=== PATIENT | male | born 1960 | race Caucasian/White ===

== ENCOUNTER 2022-06-07 12:48 | Inpatient (IN) ==
--- NOTE | 2022-06-07 13:08 | Emergency Department Note ---
Abdominal Pain HPI General Chief Complaint: Abdominal Pain Stated Complaint: Abdominal pain Time Seen by Provider: 06/07/22 12:53 Source: patient Mode of arrival: ambulatory Limitations: no limitations History of Present Illness HPI Narrative: Rolando Cm is a 62-year-old male who presents emergency department with a about a week of central abdominal pain, inappetence, and constipation. He reports he and his significant other both had a "lower GI bug," but he did not improve. He reports constipation and abdominal pain. He states he has not eaten in 3 or 4 days. He reports he has been increasing his water intake, reporting approximately "three quarters of a gallon" ingested yesterday and about 1 pint of water today. He reports urination is painful, causing abdominal cramping, but he denies a history of black or bloody stools. He denies nausea and vomiting. He states he has never had a small bowel obstruction. He reports he still has his appendix. The patient reports he normally has a bowel movement daily, and that his last normal bowel movement was early last week. He states he has had liquid stools daily, very small quantities. He denies all other acute complaints at this time. Related Data Allergies Allergy/AdvReac Type Severity Reaction Status Date / Time bee venom protein (honey bee) Allergy Verified 06/07/22 16:51 Review of Systems ROS ROS Narrative: A comprehensive review of systems is obtained and found to be negative, except as per HPI. PFSH Narrative Patient History Narrative: Narrative: Medical/Surgical/Family History All Active Problems Sigmoid diverticulitis (Acute) Social History Smoking Status: Never smoker Exam Narrative Narrative: General: Alert, pleasant, conversant, NAD HEENT: EOMI, PERRL, equal facial movement Chest/respiratory: Symmetric chest wall expansion, CTAB, adequate tidal volume and respiratory effort, speaks in complete paragraphs without difficulty CV: RRR/no MRG, cap refill less than 2 seconds; palpable peripheral pulses Abdomen/GI: decreased bowel sounds, TTP at RLQ and suprapubic, no rebound or guarding Extremities/MSK: MAEW, significant lower extremity edema bilat reported to be baseline Skin: Normal warm and dry General Limitations: no limitations Course Consultations Consultation #1: Dr. Garzon, general surgery. After discussing the patient's case in detail, he agrees to come to the emergency department to see the patient. I had previously ordered Zosyn, however Dr. Garzon requests meropenem. This change is made. Time: 14:25 Vital Signs Vital signs: Vital Signs Temperature 97.6 F 06/07/22 12:48 Pulse Rate 100 H 06/07/22 12:48 Respiratory Rate 20 06/07/22 12:48 Blood Pressure 167/94 06/07/22 12:48 Pulse Oximetry (%) 96 06/07/22 12:48 Oxygen Delivery Method Room Air 06/07/22 12:48 Temperature 98.6 F 06/07/22 19:44 Pulse Rate 109 H 06/07/22 19:44 Respiratory Rate 18 06/07/22 19:44 Blood Pressure 161/90 06/07/22 19:44 Pulse Oximetry (%) 95 06/07/22 19:44 Oxygen Delivery Method Room Air 06/07/22 19:44 MDM MDM Narrative Medical decision making narrative: Rolando Cm is a 62-year-old male who presents emergency department compla ining of central abdominal pain for approximately 1 week. On exam, he he is tender to palpation without rebound or guarding on the right lower quadrant/suprapubic. The patient has had inappetence for 3 to 4 days. He has been drinking increased volumes of water. He denies black or bloody stools. White blood cell count is 18.1. Lactic acid is high and of reference range at 2.0. Glucose and fasting patient is elevated. Imaging exam is consistent with severe diverticulitis with diverticular abscess. Dr. Garzon of the surgery service is contacted to evaluate the patient; after discussing the patient's case in detail, he agrees to come in to see the patient. Following his evaluation of the patient, Dr. Garzon agrees to admit the patient to the surgery service. Urine not collected at the time of admission; no UA performed. Sepsis Sepsis Identified: No Lab Data Lab results reviewed: Yes I reviewed the patient's lab results. Lab results narrative: White count initially is 18.1 with a left shift. Lactic acid is high normal at 2.0. Elevated glucose. 06/07/22 13:10 06/07/22 13:10 Labs: Lab Results 06/07/22 06/07/22 06/07/22 Range/Units 13:08 13:10 13:10 WBC 18.1 H (4.5-11.0) K/mcL RBC 5.28 (4.63-6.08) M/mcL Hgb 18.2 H (13.7-17.5) g/dL Hct 52.0 H (40.1-51.0) % POC Hct 56.0 H (41-55) MCV 98.5 (80.0-100.0) fL MCH 34.5 H (26.0-34.0) pg MCHC 35.0 (31.0-36.0) g/dL RDW 11.8 (11.5-14.5) % Plt Count 343 (140-440) K/mcL MPV 9.6 (8.8-12.5) fL Immature Gran % (Auto) 0.6 H (0.0-0.5) % Neut % (Auto) 87.8 H (38.0-78.0) % Lymph % (Auto) 5.6 L (15.5-49.0) % Keith % (Auto) 5.6 (1.0-12.0) % Eos % (Auto) 0.1 (0.0-7.0) % Baso % (Auto) 0.3 (0.0-2.0) % Lymph # (Auto) 1.01 L (1.50-4.80) K/mcL Keith # (Auto) 1.01 H (0.10-0.90) K/mcL Eos # (Auto) 0.01 (0.00-0.70) K/mcL Baso # (Auto) 0.05 (0.00-0.30) K/mcL Immature Gran # 0.11 H (0.00-0.05) K/mcl Absolute Neutrophils 15.87 H (1.80-8.00) K/mcL POC VBG pH (7.32-7.42) POC VBG pCO2 at Temp (41-51) POC VBG pO2 (25-40) POC VBG HCO3 (24-28) POC VBG Total CO2 (25-29) POC Venous O2 Sat (40-70) POC VBG Base Excess (-2-2) VBG Lactic Acid (0.5-2) POC Sodium 136 (133-145) Sodium 135 (133-145) mmol/L POC Potassium 4.2 (3.3-5.1) Potassium 4.4 (3.3-5.1) mmol/L POC Chloride 98 (96-108) Chloride 92 L (96-108) mmol/L Carbon Dioxide 22 (22-30) mmol/L POC Total CO2 28.0 (22-30) Anion Gap 21.0 H (8.0-16.0) POC BUN 17 (6-20) BUN 13 (8-23) mg/dL Creatinine 0.8 (0.7-1.2) mg/dL POC Creatinine 0.8 (0.6-1.2) GFR Calculation 96 Glucose 100 (70-105) mg/dL POC Glucose 121 H (70-105) POC WB Ioniz Calcium 1.09 L (1.16-1.32) Ionized Calcium Ting 1.19 (1.16-1.32) mmol/L 06/07/22 Range/Units 13:25 WBC (4.5-11.0) K/mcL RBC (4.63-6.08) M/mcL Hgb (13.7-17.5) g/dL Hct (40.1-51.0) % POC Hct (41-55) MCV (80.0-100.0) fL MCH (26.0-34.0) pg MCHC (31.0-36.0) g/dL RDW (11.5-14.5) % Plt Count (140-440) K/mcL MPV (8.8-12.5) fL Immature Gran % (Auto) (0.0-0.5) % Neut % (Auto) (38.0-78.0) % Lymph % (Auto) (15.5-49.0) % Keith % (Auto) (1.0-12.0) % Eos % (Auto) (0.0-7.0) % Baso % (Auto) (0.0-2.0) % Lymph # (Auto) (1.50-4.80) K/mcL Keith # (Auto) (0.10-0.90) K/mcL Eos # (Auto) (0.00-0.70) K/mcL Baso # (Auto) (0.00-0.30) K/mcL Immature Gran # (0.00-0.05) K/mcl Absolute Neutrophils (1.80-8.00) K/mcL POC VBG pH 7.36 (7.32-7.42) POC VBG pCO2 at Temp 38.0 L (41-51) POC VBG pO2 29 (25-40) POC VBG HCO3 21.4 L (24-28) POC VBG Total CO2 23.0 L (25-29) POC Venous O2 Sat 52.0 (40-70) POC VBG Base Excess -4.0 L (-2-2) VBG Lactic Acid 2.0 (0.5-2) POC Sodium (133-145) Sodium (133-145) mmol/L POC Potassium (3.3-5.1) Potassium (3.3-5.1) mmol/L POC Chloride (96-108) Chloride (96-108) mmol/L Carbon Dioxide (22-30) mmol/L POC Total CO2 (22-30) Anion Gap (8.0-16.0) POC BUN (6-20) BUN (8-23) mg/dL Creatinine (0.7-1.2) mg/dL POC Creatinine (0.6-1.2) GFR Calculation Glucose (70-105) mg/dL POC Glucose (70-105) POC WB Ioniz Calcium (1.16-1.32) Ionized Calcium Ting (1.16-1.32) mmol/L Radiology Data Radiology results reviewed: Yes I reviewed the patient's radiology results. Radiology results narrative: Severe diverticulitis with diverticular abscess IMPRESSION: Severe diverticulitis in the mid/distal sigmoid colon with a 2.3 cm developing abscess in the adjacent perisigmoid fat. Adjacent small bowel loops demonstrates sympathetic inflammatory wall thickening. Small amount of free air in the perihepatic region is likely related to microperforation from the diverticulitis. Moderate diffuse wall thickening urinary bladder. Please correlate with urinalysis to exclude cystitis Discharge Plan Patient/Caregiver Discharge Instructions Pt seen by REPAIRER KILN CAR/PA only: Yes Clinical Impression: Sigmoid diverticulitis, Colonic diverticular abscess Patient Disposition: Xfer As Inpt ([facility]) Discharge Date/Time: 06/07/22 16:00
[2022-06-07 13:12] LABS: POC Calcium, Ionized 1.09 (1.16-1.32); POC Creatinine 0.8 (0.6-1.2); POC Potassium 4.2 (3.3-5.1)
[2022-06-07] MEDS: 0.9 % SODIUM CHLORIDE 1,000 ML IV SCH ×7 (13:25→23:04)
[2022-06-07] MEDS ORDERED: ONDANSETRON 4 MG/2 ML VIAL IV PRN ×2 (14:07→15:17)
[2022-06-07] MEDS ORDERED: fentaNYL 100 MCG/2 ML VIAL IV PRN (14:07)
--- NOTE | 2022-06-07 14:08 | Cat Scan Report ---
CLINICAL INFORMATION: Abdominal pain COMPARISON: None. TECHNIQUE: Following enteric contrast, 80 cc of Isovue-370 were injected intravenously, and 60 seconds later, 0.625 mm helical slices were obtained from the mid heart through the subtrochanteric regions. Following reconstruction, 2.5 mm sagittal, coronal and axial reformatted images were processed and reviewed at bone, lung and soft tissue windows. Five minutes later, 0.625 mm helical slices were obtained from the mid heart through the kidneys and viewed at soft tissue windows.The exam was performed using radiation dose optimization techniques including, but not limited to, automated exposure control, adjustment of the mA and/or kV according to patient size and use of iterative reconstruction technique. FINDINGS: The lung bases show subsegmental atelectasis in the posterior lower lobes. No effusions. The visualized heart is grossly normal. Small hiatal hernia noted. Abdominal images show mild fatty change within the liver. An 8 mm simple cyst in the central right hepatic lobe. No significant focal hepatic abnormality. The gallbladder and bile ducts are normal CBD is 5 mm. Both kidneys, spleen, pancreas and aorta, including aortic branches, are normal in size, configuration and attenuation without focal lesion. An 18 mm fat-containing benign adenoma seen in the right adrenal gland. The left adrenal gland is normal. There is no adenopathy. Pelvic images show moderate diffuse wall thickening of urinary bladder. The prostate and seminal vesicles are normal. Severe diverticulitis involving the mid and distal sigmoid colon features moderate wall thickening, inflamed diverticuli and moderate phlegmon in the perisigmoid fat. A 2.3 cm fluid collection in the central true pelvis, adjacent to the inflamed sigmoid colon, likely represents a developing abscess. Few loops of small bowel juxtaposed to this region show mild wall thickening which likely represents sympathetic inflammation. This extends to the terminal ileum. The remaining large bowel, inferior pericecal appendix, remaining small bowel and stomach are grossly normal. Small amount of free air is seen in the superior perihepatic region is likely due to microperforation from the diverticulitis. Small amount of free fluid seen in the deep true pelvis. Bone windows show no osseous normality. IMPRESSION: Severe diverticulitis in the mid/distal sigmoid colon with a 2.3 cm developing abscess in the adjacent perisigmoid fat. Adjacent small bowel loops demonstrates sympathetic inflammatory wall thickening. Small amount of free air in the perihepatic region is likely related to microperforation from the diverticulitis. Moderate diffuse wall thickening urinary bladder. Please correlate with urinalysis to exclude cystitis Interpreted and Authenticated by: Kev Cheng 06/07/22
[2022-06-07 14:09] LABS: Basophils # (Auto) 0.05 K/mcL (0.00-0.30); Basophils % (Auto) 0.3 % (0.0-2.0); Eosinophils # (Auto) 0.01 K/mcL (0.00-0.70); Eosinophils % (Auto) 0.1 % (0.0-7.0); Hemoglobin 18.2 g/dL (13.7-17.5); Lymphocytes # (Auto) 1.01 K/mcL (1.50-4.80); Lymphocytes % (Auto) 5.6 % (15.5-49.0); Mean Cell Volume 98.5 fL (80.0-100.0); Mean Platelet Volume 9.6 fL (8.8-12.5); Monocytes # (Auto) 1.01 K/mcL (0.10-0.90); Monocytes % (Auto) 5.6 % (1.0-12.0); Neutrophils % (Auto) 87.8 % (38.0-78.0); Platelet Count 343 K/mcL (140-440); RBC 5.28 M/mcL (4.63-6.08); Red Cell Distribution Width 11.8 % (11.5-14.5); WBC 18.1 K/mcL (4.5-11.0)
[2022-06-07] MEDS ORDERED: PIPERACILLIN SODIUM/TAZOBACTAM 4.5 GM in DEXTROSE 5% IN WATER 50 ML IV ONE (14:16)
[2022-06-07] MEDS ORDERED: MEROPENEM 0.5 GM in 0.9 % SODIUM CHLORIDE 50 ML IV SCH ×2 (14:30→15:15)
[2022-06-07 14:38] LABS: Blood Urea Nitrogen 13 mg/dL (8-23); Carbon Dioxide 22 mmol/L (22-30); Chloride 92 mmol/L (96-108); Glomerular Filtration Rate 96; Glucose 100 mg/dL (70-105)
[2022-06-07] MEDS ORDERED: fentaNYL 100 MCG/2 ML VIAL IV ONE (15:08)
--- NOTE | 2022-06-07 15:52 | General Surgery Consult Note ---
HPI Date of Consult Consult Date: 06/07/22 Primary Care Provider: PCP No Consult Narrative Patient Information: Note initiated : 06/07/22 at 3:33 pm Service Date, if different from initiated Date: [] Patient: Juan Jose Cm 62 y/o M admitted on for Abdominal pain. Chief Complaint: [] Juan Jose is seen in consultation today after a roughly 1 week history of increasingly severe Lower Abdominal Pain that has seemed localized to the Pelvic Midline. He was seen in the ER and a CT Scan was obtained confirming Severe Sigmoid Diverticulitis with a small roughly 2cm associated abscess. He has not had prior bouts of this and has never undergone Colonoscopy. He has not had any prior Abdominal Surgery. He feels his baseline level of health is good although he doesn't seek out regular medical care. He is not on any medications at home and denies any known drug allergies. He is not on any oral a nticoagulants and denies any known Cardiac or Pulmonary issues. He is accompanied by his . Chief complaint: Abdominal Pain Reason for consult: Acute Sigmoid Diverticulitis cc:: CC: Review of Systems All systems: reviewed and no additional remarkable complaints except as stated Constitutional Additional comments: no changes EENT Additional comments: no ENT changes Cardiovascular Additional comments: no chest pains or other known issues Respiratory Additional comments: no SOB or Cough is a non smoker Gastrointestinal Additional comments: see HPI Genitourinary Additional comments: no hematuria Integumentary Additional comments: no recent changes Neurological Additional comments: no changes Hematologic/Lymphatic Additional comments: denies adenopathy or other issue PFSH PFSH All Active Problems (Updated 06/07/22 @ 15:46 by Todd Garzon MD) Sigmoid diverticulitis (Acute) Social History smoking status: Never smoker MEDS/ALLERGIES Home Medications and Allergies Allergies Allergy/AdvReac Type Severity Reaction Status Date / Time No Known Drug Allergies Allergy Verified 06/07/22 12:50 Physical Examination Vital Signs Vital signs: Temp Pulse Resp BP Pulse Ox O2 Del Method 97.6 F 113 H 20 147/83 92 Room Air 06/07/22 12:48 06/07/22 15:01 06/07/22 12:48 06/07/22 15:01 06/07/22 15:01 02/18/23 12:48 General physical appearance General physical exam: other (looks well, non toxic ) Eyes Eye exam: normal ocular movement; negative icteric ENT ENT exam: other (normal appearance ) Head Head exam IM: Present atraumatic, normal inspection and normocephalic Neck Neck exam: trachea midline; negative no lymphadenopathy Cardiovascular Cardiovascular exam IM: Present normal rate and rhythm and RRR Respiratory Respiratory exam: other (normal effort without distress ) Abdomen Abdomen: Present soft (soft and non distended, tenderness to exam focaly localized to the lower abdomen without guarding or rebound ) Integumentary Integumentary: Present other (normal appearing intact skin ) Psychiatric Psychiatric: Present oriented to time, oriented to person and oriented to place Results Labs 06/07/22 13:10 06/07/22 13:10 Labs: Abnormal lab results 06/07/22 06/07/22 06/07/22 Range/Units 13:08 13:10 13:10 WBC 18.1 H (4.5-11.0) K/mcL Hgb 18.2 H (13.7-17.5) g/dL Hct 52.0 H (40.1-51.0) % POC Hct 56.0 H (41-55) MCH 34.5 H (26.0-34.0) pg Immature Gran % (Auto) 0.6 H (0.0-0.5) % Neut % (Auto) 87.8 H (38.0-78.0) % Lymph % (Auto) 5.6 L (15.5-49.0) % Lymph # (Auto) 1.01 L (1.50-4.80) K/mcL Cla[place]orne # (Auto) 1.01 H (0.10-0.90) K/mcL Immature Gran # 0.11 H (0.00-0.05) K/mcl Absolute Neutrophils 15.87 H (1.80-8.00) K/mcL POC VBG pCO2 at Temp (41-51) POC VBG HCO3 (24-28) POC VBG Total CO2 (25-29) POC VBG Base Excess (-2-2) Chloride 92 L (96-108) mmol/L Anion Gap 21.0 H (8.0-16.0) POC Glucose 121 H (70-105) POC WB Ioniz Calcium 1.09 L (1.16-1.32) 02/18/23 Range/Units 13:25 WBC (4.5-11.0) K/mcL Hgb (13.7-17.5) g/dL Hct (40.1-51.0) % POC Hct (41-55) MCH (26.0-34.0) pg Immature Gran % (Auto) (0.0-0.5) % Neut % (Auto) (38.0-78.0) % Lymph % (Auto) (15.5-49.0) % Lymph # (Auto) (1.50-4.80) K/mcL [place]orne # (Auto) (0.10-0.90) K/mcL Immature Gran # (0.00-0.05) K/mcl Absolute Neutrophils (1.80-8.00) K/mcL POC VBG pCO2 at Temp 38.0 L (41-51) POC VBG HCO3 21.4 L (24-28) POC VBG Total CO2 23.0 L (25-29) POC VBG Base Excess -4.0 L (-2-2) Chloride (96-108) mmol/L Anion Gap (8.0-16.0) POC Glucose (70-105) POC WB Ioniz Calcium (1.16-1.32) Diabetes panel 06/07/22 Range/Units 13:10 Sodium 135 (133-145) mmol/L Potassium 4.4 (3.3-5.1) mmol/L Chloride 92 L (96-108) mmol/L Carbon Dioxide 22 (22-30) mmol/L BUN 13 (8-23) mg/dL Creatinine 0.8 (0.7-1.2) mg/dL Glucose 100 (70-105) mg/dL Calcium panel 06/07/22 Range/Units 13:10 Ionized Calcium Ting 1.19 (1.16-1.32) mmol/L Pituitary panel 06/07/22 Range/Units 13:10 Sodium 135 (133-145) mmol/L Potassium 4.4 (3.3-5.1) mmol/L Chloride 92 L (96-108) mmol/L Carbon Dioxide 22 (22-30) mmol/L BUN 13 (8-23) mg/dL Creatinine 0.8 (0.7-1.2) mg/dL Glucose 100 (70-105) mg/dL Adrenal panel 06/07/22 Range/Units 13:10 Sodium 135 (133-145) mmol/L Potassium 4.4 (3.3-5.1) mmol/L Chloride 92 L (96-108) mmol/L Carbon Dioxide 22 (22-30) mmol/L BUN 13 (8-23) mg/dL Creatinine 0.8 (0.7-1.2) mg/dL Glucose 100 (70-105) mg/dL All other labs normal. A/P Assessment and plan (1) Sigmoid diverticulitis: Assessment and plan: Acute Sigmoid Diverticulitis with associated phlegmon and abscess The currently seen abscess is not large enough for external percutaneous drainage and so transfer to an IR capable facility is probably not necessary at this time but this could change Issues are reviewed and discussed extensively with he and his and they're aware that emergent exploration at this time would resort in Stomal Diversion. With only localized tenderness now and no over peritonitis, an attempt at conservative non operative mgmt with IV ABs seems reasonable but certainly if he doesn't show improvement over the next 24-48 hours then operative intervention might be needed Risks, benefits, potential complications and alternative treatment options to our planned approach are reviewed and discussed at length as well and they both have a good understanding of this. We will go ahead with admission and my contact info is provided Status: Acute Time Spent With Patient Time: Total time spent is greater than 50% in coordination of care (as documented) at patient's floor/unit and/or counseling patient:
[2022-06-07] MEDS: DEXTROSE 5%-LR 1,000 ML IV SCH ×2 (16:59→21:59)
[2022-06-07] MEDS: HYDROmorphone 0.5 MG/0.5 ML SYRINGE IV PRN ×2 (17:26→22:05)
[2022-06-07] MEDS ORDERED: PANTOPRAZOLE 40 MG TABLET PO ONE (17:52)
[2022-06-07] MEDS: MEROPENEM 0.5 GM in 0.9 % SODIUM CHLORIDE 50 ML IV SCH (19:18)
[2022-06-07] MEDS: MAG HYDROX/AL HYDROX/SIMETH 30 ML ORAL.SUSP PO PRN (19:18)
[2022-06-08] MEDS: MAG HYDROX/AL HYDROX/SIMETH 30 ML ORAL.SUSP PO PRN ×2 (00:08→15:54)
[2022-06-08] MEDS: MEROPENEM 0.5 GM in 0.9 % SODIUM CHLORIDE 50 ML IV SCH ×5 (00:08→23:54)
[2022-06-08] MEDS: 0.9 % SODIUM CHLORIDE 1,000 ML IV SCH ×9 (00:11→14:55)
[2022-06-08] MEDS: HYDROmorphone 0.5 MG/0.5 ML SYRINGE IV PRN ×5 (03:06→22:51)
[2022-06-08] MEDS: DEXTROSE 5%-LR 1,000 ML IV SCH ×3 (03:07→14:54)
[2022-06-08 06:06] LABS: Hematocrit 44.3 % (40.1-51.0); Hemoglobin 15.3 g/dL (13.7-17.5); Mean Cell Volume 97.8 fL (80.0-100.0); Mean Corpuscular HGB Conc 34.5 g/dL (31.0-36.0); Mean Platelet Volume 9.2 fL (8.8-12.5); Platelet Count 282 K/mcL (140-440); RBC 4.53 M/mcL (4.63-6.08); Red Cell Distribution Width 11.8 % (11.5-14.5); WBC 16.1 K/mcL (4.5-11.0)
[2022-06-08 06:29] LABS: Blood Urea Nitrogen 12 mg/dL (8-23); Calcium 8.8 mg/dL (8.6-10.4); Carbon Dioxide 25 mmol/L (22-30); Chloride 100 mmol/L (96-108); Glomerular Filtration Rate 108; Glucose 178 mg/dL (70-105)
[2022-06-08 09:50] LABS: Appearance,Urine HAZY (Clear); Bilirubin,Urine Negative (Negative); Color,Urine AMBER; Culture Indicated,Urine No; Glucose,Urine (UA) Negative (Negative); Ketones,Urine 20 mg/dL (Negative); Leukocyte Esterase,Urine Negative /uL (Negative); Mucus,Urine MANY /hpf; Nitrate,Urine Negative (Negative); Protein,Urine 100 mg/dL (Negative); Specific Gravity,Urine 1.038 (1.000-1.035); Urine Blood 0.03 mg/dL (Negative); Urine RBC 4 /hpf (0-3); Urine Squamous Epithelial Cell 0 /hpf (0-4); Urine WBC 1 /hpf (0-4); Urobilinogen,Urine Negative
--- NOTE | 2022-06-08 12:18 | General Surgery Progress Note ---
SUBJECTIVE Subjective Patient information: Note initiated : 06/08/22 at 12:13 pm Service Date, if different from initiated Date: [] Patient: Juan Jose Cm 62 y/o M admitted on 06/07/22 for Abdominal pain. Chief Complaint: [] Feels markedly improved today, passing as, far less abdominal pain Constitutional Vitals: Vital Signs Temp Pulse Resp BP Pulse Ox O2 Del Method 99.5 F H 85 16 150/72 99 Room Air 06/08/22 11:54 06/08/22 07:18 06/08/22 11:54 06/08/22 11:54 06/08/22 11:54 06/08/22 11:54 Period Temp Pulse Resp BP Sys/Yeh Pulse Ox O2 Del Method O2 Flow Rate Last 24 Hr 97.6 F-99.5 F 85-125 16-20 137-175/72-108 91-99 Room Air-Room Air Intake and Output 06/08/22 06/08/22 06/08/22 03:59 11:59 19:59 Intake Total 2400 938 Output Total 400 Balance 1999 938 Weight 202 lb 1.6 oz Intake & Output: Intake & Output 06/08/22 06/08/22 06/08/22 03:59 11:59 19:59 Intake Total 2400 938 Output Total 400 Balance 1999 938 Weight 202 lb 1.6 oz Intake: IV 2100 938 Sodium Chloride 0.9% 1,000 ml @ 1000 500 mls/hr IV .Q2H KANDY Rx#: [id number] Dextrose 5%-Lactated Ringers 1, 1000 888 000 ml @ 150 mls/hr IV .Q6H40M KANDY Rx#:[id number] Merrem 0.5 gm In Sodium 100 50 Chloride 0.9% 50 ml @ 100 mls/ hr IV Q6H KANDY Rx#:[id number] Oral 300 Output: Void Amount 400 Other: Urine Appearance Clear Urine Color Dark Michelle Dark Michelle Urine Odor Normal Exam: Looks non toxic, NAD, conversant Respiratory Additional comments: normal effort without distress Cardiovascular Cardiovascular exam: Present RRR GI/Abdominal Additional comments: soft and non distended, moderate Lower Abdominal TTP, no peritoneal findings Extremities Exam Additional comments: well perfused A/P Assessment and plan (1) Sigmoid diverticulitis: Assessment and plan: Acute Sigmoid Diverticulitis with Abscess Clinically improved on current mgmt Continue IVF, IV ABs and NPO Re check labs in AM Status: Acute Time Spent With Patient Time: Total time spent is greater than 50% in coordination of care (as documented) at patient's floor/unit and/or counseling patient:
[2022-06-08] MEDS: DEXTROSE 5%-1/2NS W/20MEQ KCL 1,000 ML IV SCH ×2 (15:50→23:54)
[2022-06-08] MEDS: PANTOPRAZOLE 40 MG TABLET PO SCH (20:28)
[2022-06-09] MEDS: HYDROmorphone 0.5 MG/0.5 ML SYRINGE IV PRN ×8 (00:25→23:54)
[2022-06-09] MEDS: MEROPENEM 0.5 GM in 0.9 % SODIUM CHLORIDE 50 ML IV SCH ×4 (05:50→23:54)
[2022-06-09 07:21] LABS: Hematocrit 43.7 % (40.1-51.0); Hemoglobin 14.7 g/dL (13.7-17.5); Mean Cell Volume 99.8 fL (80.0-100.0); Mean Corpuscular HGB Conc 33.6 g/dL (31.0-36.0); Mean Platelet Volume 9.7 fL (8.8-12.5); Platelet Count 279 K/mcL (140-440); RBC 4.38 M/mcL (4.63-6.08); WBC 15.2 K/mcL (4.5-11.0)
[2022-06-09] MEDS: DEXTROSE 5%-1/2NS W/20MEQ KCL 1,000 ML IV SCH ×3 (08:07→23:57)
[2022-06-09 11:57] LABS: Blood Urea Nitrogen 9 mg/dL (8-23); Calcium 8.7 mg/dL (8.6-10.4); Carbon Dioxide 25 mmol/L (22-30); Chloride 100 mmol/L (96-108); Glomerular Filtration Rate 116; Glucose 146 mg/dL (70-105)
--- NOTE | 2022-06-09 14:32 | General Surgery Progress Note ---
SUBJECTIVE Subjective Patient information: Note initiated : 06/09/22 at 2:25 pm Service Date, if different from initiated Date: [] Patient: Juan Jose Cm 62 y/o M admitted on 06/07/22 for Abdominal pain. Chief Complaint: [] Continues to feel that he is slowly improving, passing gas, doing much better overall Constitutional Vitals: Vital Signs Temp Pulse Resp BP Pulse Ox O2 Del Method 98.8 F 71 20 151/98 94 Room Air 06/09/22 11:22 06/09/22 11:22 06/09/22 11:22 06/09/22 11:22 06/09/22 11:22 06/09/22 11:22 Period Temp Pulse Resp BP Sys/Yeh Pulse Ox O2 Del Method O2 Flow Rate Last 24 Hr 98.3 F-99.2 F 71-86 18-20 132-158/79-98 92-95 Room Air-Room Air Intake and Output 06/09/22 06/09/22 06/09/22 03:59 11:59 19:59 Intake Total 1450 1050 50 Output Total 350 400 Balance 1100 650 50 Weight 208 lb 1.6 oz Patient Weight 06/10/22 03:59 Weight 208 lb 1.6 oz Intake & Output: Intake & Output 06/09/22 06/09/22 06/09/22 03:59 11:59 19:59 Intake Total 1450 1050 50 Output Total 350 400 Balance 1100 650 50 Weight 208 lb 1.6 oz Intake: IV 1050 1050 50 Dextrose 5%-1/2Ns W/20Meq KCl 1 1000 1000 ,000 ml @ 125 mls/hr IV .Q8H KANDY Rx#:[id number] Merrem 0.5 gm In Sodium 50 50 50 Chloride 0.9% 50 ml @ 100 mls/ hr IV Q6H KANDY Rx#:[id number] Oral 400 Output: Void Amount 350 400 Other: Urine Appearance Clear Urine Color Yellow Dark Michelle Urine Odor Normal Normal Exam: looks well, no distress, non toxic, pleasantly conversant Respiratory Respiratory exam: Present normal respiratory exam Cardiovascular Cardiovascular exam: Present RRR GI/Abdominal Additional comments: soft and non distended, mild lower abdominal tenderness continues but no peritoneal findings Extremities Exam Additional comments: well perfused A/P Assessment and plan (1) Sigmoid diverticulitis: Assessment and plan: HD #3 Acute Sigmoid Diverticulitis with associated Abscess Continues to slowly improve on IV ABs, bowel rest and IVF Re check labs in AM Will consider starting clears tomorrow Increase activity as tolerated Status: Acute Time Spent With Patient Time: Total time spent is greater than 50% in coordination of care (as documented) at patient's floor/unit and/or counseling patient:
[2022-06-09] MEDS: PANTOPRAZOLE 40 MG TABLET PO SCH (21:53)
[2022-06-10] MEDS: HYDROmorphone 0.5 MG/0.5 ML SYRINGE IV PRN ×7 (03:51→19:09)
[2022-06-10] MEDS: MEROPENEM 0.5 GM in 0.9 % SODIUM CHLORIDE 50 ML IV SCH ×3 (05:52→17:59)
[2022-06-10 07:22] LABS: Hematocrit 42.5 % (40.1-51.0); Hemoglobin 14.3 g/dL (13.7-17.5); Mean Cell Volume 100.5 fL (80.0-100.0); Mean Corpuscular HGB Conc 33.6 g/dL (31.0-36.0); Mean Platelet Volume 9.8 fL (8.8-12.5); Platelet Count 282 K/mcL (140-440); RBC 4.23 M/mcL (4.63-6.08); Red Cell Distribution Width 12.3 % (11.5-14.5); WBC 15.2 K/mcL (4.5-11.0)
[2022-06-10 07:38] LABS: Blood Urea Nitrogen 8 mg/dL (8-23); Calcium 8.2 mg/dL (8.6-10.4); Carbon Dioxide 28 mmol/L (22-30); Chloride 99 mmol/L (96-108); Glomerular Filtration Rate 116; Glucose 130 mg/dL (70-105)
[2022-06-10] MEDS: DEXTROSE 5%-1/2NS W/20MEQ KCL 1,000 ML IV SCH (13:59)
--- NOTE | 2022-06-10 16:53 | General Surgery Progress Note ---
SUBJECTIVE Subjective Patient information: Note initiated : 06/10/22 at 1:15pm Service Date, if different from initiated Date: [] Patient: Juan Jose Cm 62 y/o M admitted on 06/07/22 for Abdominal pain. Chief Complaint: [] Continues to feel improved, passing some gas, no nausea or vomiting and abdominal pain continues to be much better. Constitutional Vitals: Vital Signs Temp Pulse Resp BP Pulse Ox O2 Del Method 99.1 F H 98 H 16 145/86 93 Room Air 06/10/22 15:48 06/10/22 15:48 06/10/22 15:48 06/10/22 15:48 06/10/22 15:48 06/10/22 15:48 Period Temp Pulse Resp BP Sys/Yeh Pulse Ox O2 Del Method O2 Flow Rate Last 24 Hr 97.3 F-99.1 F 81-127 16-24 130-164/83-100 92-100 Room Air-Room Air Intake and Output 06/10/22 06/10/22 06/10/22 03:59 11:59 19:59 Intake Total 1450 1050 0 Output Total 450 400 Balance 1450 600 -400 Weight 215 lb 11.2 oz Intake & Output: Intake & Output 06/10/22 06/10/22 06/10/22 03:59 11:59 19:59 Intake Total 1450 1050 0 Output Total 450 400 Balance 1450 600 -400 Weight 215 lb 11.2 oz Intake: IV 1050 1050 Dextrose 5%-1/2Ns W/20Meq KCl 1 1000 1000 ,000 ml @ 100 mls/hr IV .Q10H KANDY Rx#:[id number] Merrem 0.5 gm In Sodium 50 50 Chloride 0.9% 50 ml @ 100 mls/ hr IV Q6H KANDY Rx#:[id number] Oral 400 0 Output: Urine Catheter Amount 200 Void Amount 450 200 Other: Urine Appearance Clear Urine Color Dark Michelle Urine Odor Normal General appearance: no acute distress Exam: pleasantly conversant, looks non toxic, NAD Respiratory Respiratory exam: Present normal respiratory exam Additional comments: normal effort without distress Cardiovascular Cardiovascular exam: Present RRR GI/Abdominal Additional comments: soft and essentially non tender, no peritoneal findings, minimal distension Extremities Exam Additional comments: well perfused A/P Assessment and plan (1) Sigmoid diverticulitis: Assessment and plan: Sigmoid Diverticulitis with associated Abscess Continues to appear clinically improved Re check Abdominal films in AM and consider repeat CT in the next 24-48 hours to re evaluate suitability of any potential abscess for drainage (which would likely require hospital transfer) Continue NPO for now Status: Acute Time Spent With Patient Time: Total time spent is greater than 50% in coordination of care (as documented) at patient's floor/unit and/or counseling patient:
[2022-06-10] MEDS: PANTOPRAZOLE 40 MG TABLET PO SCH (21:17)
[2022-06-11] MEDS: HYDROmorphone 0.5 MG/0.5 ML SYRINGE IV PRN ×6 (00:05→22:46)
[2022-06-11] MEDS: MEROPENEM 0.5 GM in 0.9 % SODIUM CHLORIDE 50 ML IV SCH ×5 (00:05→23:19)
[2022-06-11] MEDS: DEXTROSE 5%-1/2NS W/20MEQ KCL 1,000 ML IV SCH ×5 (01:16→21:46)
[2022-06-11 07:40] LABS: Hematocrit 41.2 % (40.1-51.0); Hemoglobin 14.1 g/dL (13.7-17.5); Mean Cell Volume 99.5 fL (80.0-100.0); Mean Corpuscular HGB Conc 34.2 g/dL (31.0-36.0); Mean Platelet Volume 9.5 fL (8.8-12.5); Platelet Count 300 K/mcL (140-440); RBC 4.14 M/mcL (4.63-6.08); Red Cell Distribution Width 12.5 % (11.5-14.5); WBC 14.4 K/mcL (4.5-11.0)
[2022-06-11 07:51] LABS: Blood Urea Nitrogen 8 mg/dL (8-23); Calcium 8.3 mg/dL (8.6-10.4); Carbon Dioxide 27 mmol/L (22-30); Chloride 98 mmol/L (96-108); Glomerular Filtration Rate 127; Glucose 126 mg/dL (70-105)
--- NOTE | 2022-06-11 08:35 | XRay Report ---
HISTORY: Acute sigmoid diverticulitis FINDINGS: There is a large amount of air throughout the small intestine. Some loops of small bowel are abnormally dilated measuring up to 5.6 cm. There is also air within normal caliber large intestine. Air-fluid levels are present in both large and small bowel. No free intra-abdominal air is present. There is no apparent soft tissue mass. No abnormal calcification is seen. 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 IMPRESSION: Nonspecific bowel pattern. Some features suggest an early or incomplete small bowel obstruction but other features suggest an ileus. Interpreted and Authenticated by: Ted Estrella 06/11/22
--- NOTE | 2022-06-11 12:29 | General Surgery Progress Note ---
SUBJECTIVE Subjective Patient information: Note initiated : 06/11/22 at 12:24 pm Service Date, if different from initiated Date: [] Patient: Juan Jose Cm 62 y/o M admitted on 06/07/22 for Abdominal pain. Chief Complaint: [] Continues to feel much better, passing far larger amounts of gas this am, no nausea or vomiting Constitutional Vitals: Vital Signs Temp Pulse Resp BP Pulse Ox O2 Del Method 98.5 F 104 H 18 156/77 95 Room Air 06/11/22 12:00 06/11/22 12:00 06/11/22 12:00 06/11/22 12:00 06/11/22 12:00 06/11/22 12:00 Period Temp Pulse Resp BP Sys/Yeh Pulse Ox O2 Del Method O2 Flow Rate Last 24 Hr 98.0 F-99.1 F 86-106 16-18 130-176/77-91 91-96 Room Air-Room Air Intake and Output 06/11/22 06/11/22 06/11/22 03:59 11:59 19:59 Intake Total 1050 1350 50 Output Total 425 Balance 1050 925 50 Intake & Output: Intake & Output 06/11/22 06/11/22 06/11/22 03:59 11:59 19:59 Intake Total 1050 1350 50 Output Total 425 Balance 1050 925 50 Intake: IV 1050 1050 50 Dextrose 5%-1/2Ns W/20Meq KCl 1 1000 1000 ,000 ml @ 100 mls/hr IV .Q10H [facility] Rx#:[id number] Merrem 0.5 gm In Sodium 50 50 50 Chloride 0.9% 50 ml @ 100 mls/ hr IV Q6H [facility] Rx#:[id number] Oral 300 Output: Void Amount 425 Other: Urine Appearance Clear Clear Urine Color Dark Michelle Dark Michelle Urine Odor Normal Normal Exam: Looks well, non toxic, NAD Respiratory Additional comments: normal effort without distress Cardiovascular Cardiovascular exam: Present RRR GI/Abdominal Additional comments: non tender, soft, distension remains, no peritoneal findings Extremities Exam Additional comments: well perfused A/P Assessment and plan (1) Sigmoid diverticulitis: Assessment and plan: HD #5 Sigmoid Diverticulitis with Associated Abscess Plain films this am support ileus vs partial SBO - NGT decompression is discussed but he is declining at this time as he is passing far larger amounts gas and his belly continues to feel better Issues are reviewed and discussed at length including potential need for PICC line placement, TPN support, repeat CT to assess abscess progression, possible need for Perc drainage which would mandate transfer, and other issues as well. Increase activity, minimize narcotic use, re check labs and plain films in am and re evaluate need for PICC line, TPN and updated CT Status: Acute Time Spent With Patient Time: Total time spent is greater than 50% in coordination of care (as documented) at patient's floor/unit and/or counseling patient:
[2022-06-11] MEDS: PANTOPRAZOLE 40 MG TABLET PO SCH (20:40)
[2022-06-12] MEDS: HYDROmorphone 0.5 MG/0.5 ML SYRINGE IV PRN ×7 (02:57→23:38)
[2022-06-12] MEDS: MEROPENEM 0.5 GM in 0.9 % SODIUM CHLORIDE 50 ML IV SCH ×4 (05:18→23:37)
[2022-06-12 07:01] LABS: Hematocrit 42.2 % (40.1-51.0); Hemoglobin 14.3 g/dL (13.7-17.5); Mean Cell Volume 98.1 fL (80.0-100.0); Mean Corpuscular HGB Conc 33.9 g/dL (31.0-36.0); Mean Platelet Volume 9.7 fL (8.8-12.5); Platelet Count 350 K/mcL (140-440); Red Cell Distribution Width 12.7 % (11.5-14.5); WBC 18.3 K/mcL (4.5-11.0)
[2022-06-12] MEDS: DEXTROSE 5%-1/2NS W/20MEQ KCL 1,000 ML IV SCH (07:12)
[2022-06-12 07:38] LABS: Blood Urea Nitrogen 6 mg/dL (8-23); Calcium 8.1 mg/dL (8.6-10.4); Carbon Dioxide 26 mmol/L (22-30); Chloride 96 mmol/L (96-108); Glomerular Filtration Rate 116; Glucose 130 mg/dL (70-105)
--- NOTE | 2022-06-12 09:13 | XRay Report ---
HISTORY: Abdominal pain, ileus FINDINGS: Supine and erect views were obtained. There is a moderate amount of air in both large and small intestine. There are air-fluid levels in both. Some of the small bowel loops are dilated measuring up to 4.6 cm. The caliber of the small bowel has diminished but there is more air in the large bowel today than there was yesterday. No free intra-abdominal air is present. There is no apparent soft tissue mass. Normal quantity of air is seen in the rectum and sigmoid colon. There are bands of atelectasis medially in both lung bases. These have remained stable. IMPRESSION: Ileus Interpreted and Authenticated by: Ted Estrella 06/12/22
--- NOTE | 2022-06-12 09:41 | General Surgery Progress Note ---
SUBJECTIVE Subjective Patient information: Note initiated : 06/12/22 at 9:35 am Service Date, if different from initiated Date: [] Patient: Juan Jose Cm 62 y/o M admitted on 06/07/22 for Abdominal pain. Chief Complaint: [] Not feeling as well this am with some increased pain and low grade temps overnight, passing gas and has had several large stools Plain films look improved this am Constitutional Vitals: Vital Signs Temp Pulse Resp BP Pulse Ox O2 Del Method 99.0 F 98 H 20 144/88 93 Room Air 06/12/22 03:25 06/12/22 03:25 06/12/22 03:25 06/12/22 03:25 06/12/22 03:25 06/12/22 03:25 Period Temp Pulse Resp BP Sys/Yeh Pulse Ox O2 Del Method O2 Flow Rate Last 24 Hr 98.5 F-100.4 F 89-104 18-20 140-156/77-88 93-95 Room Air-Room Air Intake and Output 06/11/22 06/12/22 06/12/22 19:59 03:59 11:59 Intake Total 140 1140 1050 Output Total 500 350 Balance -924 704 1301 Weight 212 lb 4.8 oz Intake & Output: Intake & Output 06/11/22 06/12/22 06/12/22 19:59 03:59 11:59 Intake Total 140 1140 1050 Output Total 500 350 Balance -661 781 3503 Weight 212 lb 4.8 oz Intake: IV 100 1050 1050 Dextrose 5%-1/2Ns W/20Meq KCl 1 1000 1000 ,000 ml @ 125 mls/hr IV .Q8H [facility] Rx#:[id number] Merrem 0.5 gm In Sodium 100 50 50 Chloride 0.9% 50 ml @ 100 mls/ hr IV Q6H [facility] Rx#:[id number] Oral 40 90 Output: Urine Catheter Amount 150 Void Amount 500 200 Other: Urine Appearance Clear Urine Color Tea Colored Urine Odor Normal Stool Size Small Stool Color Brown Stool Consistency Soft # Voids 1 Exam: Looks nontoxic, conversant, NAD Respiratory Respiratory exam: Present normal respiratory exam Additional comments: normal effort without distress GI/Abdominal Additional comments: soft, less distension, mild tenderness centered in lower abdomen Extremities Exam Additional comments: well perfused A/P Assessment and plan (1) Sigmoid diverticulitis: Assessment and plan: Sigmoid Diverticulitis with associated Abscess No longer seems to be improving with conservative mgmt with increasing temps and WBC Re check CT FABIENNE this am to re eval abscess and possible need for Perc Drainage or Operative Exploration If indications for Perc Drainage will likely need transfer to facility with IR capability Status: Acute Time Spent With Patient Time: Total time spent is greater than 50% in coordination of care (as documented) at patient's floor/unit and/or counseling patient:
[2022-06-12] MEDS: DEXTROSE 5%-NS W/20MEQ KCL 1,000 ML IV SCH ×2 (10:33→17:57)
[2022-06-12] MEDS ORDERED: IOPAMIDOL 100 ML BOTTLE IV ONE (13:41)
[2022-06-12] MEDS ORDERED: VANCOMYCIN PER PHARMACY IV SCH (14:24)
--- NOTE | 2022-06-12 14:25 | Cat Scan Report ---
History: Acute diverticulitis, follow-up pelvic abscess TECHNIQUE: Following injection of intravenous nonionic contrast the patient was imaged during the portal venous phase from the diaphragm through the symphysis pubis. Delayed excretory phase images of the upper abdomen were obtained. Sagittal and coronal reformats were created. The radiation exposure was limited using dose reduction technology. FINDINGS: Small layering right-sided pleural effusion is present. There is moderate atelectasis in the posterior basal segment of the left lower lobe and milder left lower lobe atelectasis. These are new findings since 06/07/22. The liver is normal in size. The parenchyma has developed a mild mottled pattern. This is a new finding since 06/07/22. The gallbladder contains some sludge or excreted contrast from the prior CT. There are no calcified stones and the wall is not thickened or inflamed. Spleen is normal in size and homogeneous. The pancreas is normal with no mass or inflammation. The adrenals are normal and symmetric. Kidneys are normal in size shape and contour and there is no kidney stone or hydronephrosis. There is perinephric stranding around both kidneys which has developed since the prior exam. Moderate amount of calcified plaque is present along the wall of a normal caliber abdominal aorta and iliac arteries. Patient has moderately severe acute sigmoid diverticulitis. The wall is thickened and inflamed. This is not causing bowel obstruction. Posterior to the bladder and anterior to the sigmoid there is an abscess collection measures 5.2 x 6.9 cm. This was seen on the prior CT done and at that time it measured 2.3 cm. There is a tract extending superiorly and laterally from this abscess into a second abscess located anteriorly in the right upper pelvis which measures 3.0 x 4.5 cm. It contains a bubble of air. The small intestine located anterior to these two abscesses and the tract is very inflamed and dilated. It Measures 3.9 cm. Wall is severely edematous. There is another abscess collection with fluid and air located more posteriorly in the right upper pelvis which measures 4.2 x 4.5 cm. There are also abscess pockets around the liver. Along the inferior border of segment six there is a 2.5 x 3.5 cm abscess. Lateral to segment six and extending inferiorly towards the hepatic flexure there is a 2.5 x 3.5 cm abscess. There is another pocket of fluid along the anterior superior border of the dome of the liver which measures 1.0 x 4.7 cm. These are all new. There is some fluid or inflammation in the left paracolic space. It does not have well-defined borders. No free intraperitoneal air is present. The urinary bladder is normally distended and there is no gas within the lumen. IMPRESSION: Severe sigmoid diverticulitis which has become worse since 06/07/22. Multiloculated abscess collections throughout the abdomen and pelvis, most of them are on the right side. The majority of these cannot be safely drained percutaneously due to overlying bowel and bladder. New onset heterogeneous air in the liver parenchyma in the right lobe. This may be seen with sepsis New onset bibasilar atelectasis and right-sided pleural effusion Dr. Garzon was called with report Interpreted and Authenticated by: Ted Estrella 06/12/22
[2022-06-12] MEDS: FLUCONAZOLE 200 MG/100 ML BAG IV SCH (14:53)
[2022-06-12] MEDS ORDERED: VANCOMYCIN 1,500 MG in 0.9 % SODIUM CHLORIDE 500 ML IV ONE (16:00)
[2022-06-12] MEDS: PANTOPRAZOLE 40 MG TABLET PO SCH (21:30)
[2022-06-13] MEDS ORDERED: VANCOMYCIN 1,000 MG in 0.9 % SODIUM CHLORIDE 250 ML IV ONE
[2022-06-13] MEDS: DEXTROSE 5%-NS W/20MEQ KCL 1,000 ML IV SCH ×5 (01:32→18:12)
[2022-06-13] MEDS: MEROPENEM 0.5 GM in 0.9 % SODIUM CHLORIDE 50 ML IV SCH ×4 (05:33→23:35)
[2022-06-13 07:32] LABS: Hematocrit 39.9 % (40.1-51.0); Hemoglobin 13.9 g/dL (13.7-17.5); Mean Cell Volume 97.1 fL (80.0-100.0); Mean Corpuscular HGB Conc 34.8 g/dL (31.0-36.0); Mean Platelet Volume 9.8 fL (8.8-12.5); Platelet Count 396 K/mcL (140-440); RBC 4.11 M/mcL (4.63-6.08); WBC 23.7 K/mcL (4.5-11.0)
[2022-06-13] MEDS: VANCOMYCIN 1,500 MG in 0.9 % SODIUM CHLORIDE 500 ML IV SCH ×2 (08:12→20:57)
[2022-06-13 08:22] LABS: Blood Urea Nitrogen 8 mg/dL (8-23); Carbon Dioxide 28 mmol/L (22-30); Chloride 100 mmol/L (96-108); Glomerular Filtration Rate 116; Glucose 138 mg/dL (70-105)
[2022-06-13] MEDS ORDERED: 0.9 % SODIUM CHLORIDE 10 ML SYRINGE IV PRN (09:09)
[2022-06-13] MEDS: FLUCONAZOLE 200 MG/100 ML BAG IV SCH (10:05)
--- NOTE | 2022-06-13 10:55 | General Surgery Progress Note ---
SUBJECTIVE Subjective Patient information: Note initiated : 06/13/22 at 10:49 am Service Date, if different from initiated Date: [] Patient: Juan Jose Cm 62 y/o M admitted on 06/07/22 for Abdominal pain. Chief Complaint: [] Continues to state that he feels much improved relative to admission, passing gas and having significant stools. Continues to decline recommendations for Surgery in the absence of any feasible options for Percutaneous Drainage. Discussed efforts underway for transfer to higher level of care that have been thus far unsuccessful. Constitutional Vitals: Vital Signs Temp Pulse Resp BP Pulse Ox O2 Del Method 99.5 F H 99 H 20 135/77 99 Room Air 06/13/22 08:00 06/13/22 08:00 06/13/22 08:00 06/13/22 08:00 06/13/22 08:00 06/13/22 08:00 Period Temp Pulse Resp BP Sys/Yeh Pulse Ox O2 Del Method O2 Flow Rate Last 24 Hr 98.6 F-100.0 F 95-111 20-20 116-162/53-93 92-99 Room Air-Room Air, Nasal Cannula Intake and Output 06/12/22 06/13/22 06/13/22 19:59 03:59 11:59 Intake Total 940 1300 70 Output Total 600 Balance 340 1300 70 Weight 212 lb 4.8 oz 216 lb Intake & Output: Intake & Output 06/12/22 06/13/22 06/13/22 19:59 03:59 11:59 Intake Total 940 1300 70 Output Total 600 Balance 340 1300 70 Weight 212 lb 4.8 oz 216 lb Intake: IV 700 1300 50 Dextrose 5%-Ns W/20Meq KCl 1, 1000 000 ml @ 125 mls/hr IV .Q8H [facility] Rx#:[id number] Merrem 0.5 gm In Sodium 100 50 50 Chloride 0.9% 50 ml @ 100 mls/ hr IV Q6H [facility] Rx#:[id number] Vancomycin 1,000 mg In Sodium 250 Chloride 0.9% 250 ml @ 250 mls/ hr IV ONCE ONE Rx#:[id number] Vancomycin 1,500 mg In Sodium 500 Chloride 0.9% 500 ml @ 333.3 mls/hr IV ONCE ONE Rx#: [id number] Oral 240 20 Output: Void Amount 600 Other: Urine Appearance Clear Urine Color Tea Colored Urine Odor Normal Stool Size Large Moderate Stool Color Brown Brown Stool Consistency Loose Loose # Voids 1 1 # Bowel Movements 1 1 Exam: Conversant, non toxic, NAD Respiratory Respiratory exam: Present normal respiratory exam Additional comments: normal effort without distress Cardiovascular Cardiovascular exam: Present normal rate and rhythm and RRR GI/Abdominal Additional comments: soft, minimally to non tender, some distension remains Extremities Exam Additional comments: well perfused, chronic LE edema A/P Assessment and plan (1) Sigmoid diverticulitis: Assessment and plan: Sigmoid Diverticulitis with associated abscess CT scan yesterday demonstrated evidence of disease progression with increased size and number intra abdominal abscess and concerns regarding accessibility to percutaneous drainage. Proceeding to the OR for Open Exploration with Washout, Drainage and probable Colostomy advised yesterday and again today given increasing WBC, CT findings from yesterday and lack of currently available transfer options. He continues to decline any consideration for surgery at this time and expressed skepticism regarding the recommendation. Patient has been made aware that in the event he is able to be transferred to a higher level of care, surgery rather than percutaneous drainage may still be recommended. He is agreeable to PICC line placement for TPN and will ask for a Hospitalist Consult as well to see if they have any additional recommendations regarding his current care. Continue IV Vanco, Meropenem and Fluconazole for now and start TPN as soon as PICC Line is available. I've also provided my Cell Phone # should any family or he have questions or concerns in the future. Status: Acute Time Spent With Patient Time: Total time spent is greater than 50% in coordination of care (as documented) at patient's floor/unit and/or counseling patient:
[2022-06-13] MEDS ORDERED: TPN PER PHARMACY IV SCH (11:13)
[2022-06-13] MEDS: HYDROmorphone 0.5 MG/0.5 ML SYRINGE IV PRN (11:22)
[2022-06-13] MEDS ORDERED: hydrALAZINE 20 MG/ML VIAL IV PRN (12:23)
[2022-06-13] MEDS: PANTOPRAZOLE 40 MG VIAL IV SCH (12:25)
--- NOTE | 2022-06-13 12:26 | Internal Medicine Consult Note ---
HPI Date of Consult Consult Date: 06/13/22 Requesting physician: Todd Garzon Primary Care Provider: PCP No Consult Narrative Patient Information: Note initiated : 06/13/22 at 12:24 pm Service Date, if different from initiated Date: [] Patient: Juan Jose Cm 62 y/o M admitted on 06/07/22 for Abdominal pain. Chief Complaint: [sigmoid diverticulitis] Chief complaint: sigmoid diverticulitis Reason for consult: sigmoid diverticulitis cc:: CC: Todd Garzon MD Patient is a 62 years old gentleman otherwise healthy presented to the ED on 06/07/22 for abdominal pain. Abdominal imaging showing sigmoid diverticulitis with 2.3 cm abscess. No sign of bowel perforations noted at that point. It was determined that the size of the abscess was too small to be drained by IR. Patient was started on bowel rest, antibiotics with meropenem, and narcotics as needed for symptoms control. Repeat CT abdomen pelvis on 06/12/22 showing severe sigmoid arthritis which has become worse since initial study. Multiloculated abscess collections throughout the abdomen and pelvis, most of them are on the right side. The majority of these cannot be safely drained percutaneously due to overlying bowel and bladder. New onset heterogeneous area in the liver parenchyma in the right lobe. It may be seen with sepsis. New onset bibasilar atelectasis and right-sided pleural effusions. To my surprise, no blood culture were collected in the ED. Patient's WBC gradually and today it is 23.7. Due to the worsening nature of his diverticulitis and increasing in size and number of the abscesses, patient was being placed in wait lists from 2 hospitals [facility] in [place] and another [facility] in [facility]. PICC line insertion and TPN feeding will be started on 06/12/22. Medical consultation was requested for medical/supportive management. Constitutional Constitutional: Absent chills, excessive sweating, fatigue, fever(s) or weakness EENT Eyes: Absent blurry vision, change in vision, loss of vision or other visual disturbances Ears: Absent decreased hearing or tinnitus Nose, mouth and throat: Absent abnormal hearing, dry mouth, headache(s), nasal congestion or sore throat Cardiovascular Cardiovascular: Absent chest pain, chest pain at rest, edema, irregular heart rhythm or palpatations Respiratory Respiratory: Absent cough, dyspnea or wheezing Gastrointestinal Gastrointestinal: Present abdominal pain, bloating and nausea; Absent constipation, diarrhea or vomiting Musculoskeletal Musculoskeletal: Absent back pain, deformity, limited range of motion, muscle cramps, muscle weakness or numbness Integumentary Integumentary: Absent lesions, rash or wounds Neurological Neurological: Absent focal weakness, headache(s) or numbness Psychiatric Psychiatric: Absent anxiety, depression or hallucinations PFSH PFSH All Active Problems Sigmoid diverticulitis (Acute) Social History smoking status: Former smoker MEDS/ALLERGIES Home Medications and Allergies Home Medications Medication Instructions Recorded Confirmed Type No Known Home Meds 06/10/22 06/10/22 History Allergies Allergy/AdvReac Type Severity Reaction Status Date / Time bee venom protein (honey bee) Allergy Verified 06/07/22 16:51 EXAM Constitutional Vitals: Temp Pulse Resp BP Pulse Ox O2 Del Method 37.2 C 97 H 16 160/84 94 Room Air 06/13/22 12:00 06/13/22 12:00 06/13/22 12:00 06/13/22 12:00 06/13/22 12:00 06/13/22 12:00 General appearance: cooperative and no acute distress Head Head exam: Present atraumatic and normocephalic Eye Eye exam: Present EOMI and PERRL ENT ENT exam: Present mucous membranes moist, normal exam and normal external ear exam Neck Neck exam: Present normal inspection; Absent lymphadenopathy, tenderness or thyromegaly Respiratory Respiratory exam: Absent accessory muscle use, respiratory distress or wheezes Cardiovascular Cardiovascular exam: Present normal rate and rhythm; Absent JVD GI/Abdominal GI/Abdominal exam: Present normal bowel sounds, soft, guarding and tenderness; Absent organomegaly Rectal Rectal exam: Present deferred Extremities Exam Extremities exam: Present full ROM, normal capillary refill and normal inspection; Absent tenderness Neurological Exam Neurological exam: Present alert, CN II-XII intact and oriented X3; Absent motor sensory deficit Psychiatric Psychiatric exam: Present normal affect and normal mood; Absent anxious or depressed Skin Skin exam: Present dry and intact DATA Data Completed and Pending Labs: Labs from last 24 hours 02/24/23 02/24/23 02/24/23 11:24 06:07 06:07 WBC 23.7 H RBC 4.11 L Hgb 13.9 Hct 39.9 L MCV 97.1 MCH 33.8 MCHC 34.8 RDW 13.0 Plt Count 396 MPV 9.8 Sodium Pending 135 Potassium Pending 4.1 Chloride Pending 100 Carbon Dioxide Pending 28 Anion Gap Pending 7.0 L BUN Pending 8 Creatinine Pending 0.5 L GFR Calculation Pending 116 Glucose Pending 138 H Uric Acid Pending Calcium Pending 8.0 L Phosphorus Pending Magnesium Pending Total Bilirubin Pending Direct Bilirubin Pending GGT Pending AST Pending ALT Pending Alkaline Phosphatase Pending Lactate Dehydrogenase Pending Total Protein Pending Albumin Pending Globulin Pending Albumin/Globulin Ratio Pending Prealbumin Pending Triglycerides Pending A/P Assessment and plan (1) Sigmoid diverticulitis: Status: Acute Narrative A/P Narrative: Assessment and Plans: 1. Sigmoid diverticulitis with multiple abscesses: NPO with IV fluid for hydration PICC line insertion and TPN for nutrition Patient is being placed in wait lists from 2 hospitals [facility] and another [facility] in [facility] for IR/colorectal surgery management Tylenol IV Dilaudid IV Blood culture Daily cbc w/ auto diff Vancomycin Meropenem Fluconazole Hydralazine 10mg IV q4-6hr PRN SBP>=180 and/or DBP>=110mmHg Incentive spirometry Q1HWA Thank you for the consultation, will continue to follow Time Spent With Patient Time: Total time spent is greater than 50% in coordination of care (as documented) at patient's floor/unit and/or counseling patient: Initial: Total time with patient: 75 - 90 minutes
[2022-06-13] MEDS: HEPARIN 5,000 UNIT/ML VIAL SQ SCH ×2 (12:30→20:58)
[2022-06-13 12:31] LABS: Prealbumin 3.2 mg/dL (20.0-40.0)
[2022-06-13 12:39] LABS: ALT/SGPT 17 U/L (<40); AST/SGOT 16 U/L (<40); Albumin 2.6 gm/dL (3.2-5.2); Alkaline Phosphatase 89 U/L (39-117); Bilirubin,Direct 3.3 mg/dL (<0.3); Bilirubin,Total 4.4 mg/dL (0.1-1.0); Blood Urea Nitrogen 8 mg/dL (8-23); Carbon Dioxide 27 mmol/L (22-30); Chloride 100 mmol/L (96-108); Globulin 2.7 gm/dL (2.2-3.7); Glomerular Filtration Rate 116; Glucose 125 mg/dL (70-105); Lactate Dehydrogenase 163 U/L (135-225); Phosphorous 2.8 mg/dL (2.5-4.5); Triglycerides 105 mg/dL (<150); Uric Acid 2.2 mg/dL (2.5-8.0)
[2022-06-13] MEDS: ACETAMINOPHEN 650 MG/65 ML BAG IV PRN (17:00)
[2022-06-13] MEDS: 0.9 % SODIUM CHLORIDE 10 ML SYRINGE IV SCH (20:57)
[2022-06-14] MEDS: ACETAMINOPHEN 650 MG/65 ML BAG IV PRN ×3 (00:13→20:56)
[2022-06-14] MEDS: DEXTROSE 5%-NS W/20MEQ KCL 1,000 ML IV SCH ×3 (00:50→17:52)
[2022-06-14] MEDS: MEROPENEM 0.5 GM in 0.9 % SODIUM CHLORIDE 50 ML IV SCH ×4 (06:48→23:55)
[2022-06-14] MEDS: PANTOPRAZOLE 40 MG VIAL IV SCH (08:04)
[2022-06-14 08:23] LABS: Basophils # (Auto) 0.04 K/mcL (0.00-0.30); Basophils % (Auto) 0.2 % (0.0-2.0); Eosinophils # (Auto) 0.07 K/mcL (0.00-0.70); Eosinophils % (Auto) 0.3 % (0.0-7.0); Hematocrit 36.9 % (40.1-51.0); Hemoglobin 12.5 g/dL (13.7-17.5); Lymphocytes # (Auto) 1.13 K/mcL (1.50-4.80); Lymphocytes % (Auto) 5.1 % (15.5-49.0); Mean Cell Volume 99.7 fL (80.0-100.0); Mean Corpuscular HGB Conc 33.9 g/dL (31.0-36.0); Mean Platelet Volume 10.1 fL (8.8-12.5); Monocytes # (Auto) 1.52 K/mcL (0.10-0.90); Monocytes % (Auto) 6.9 % (1.0-12.0); Platelet Count 387 K/mcL (140-440); Red Cell Distribution Width 13.5 % (11.5-14.5); WBC 22.1 K/mcL (4.5-11.0)
[2022-06-14 08:47] LABS: ALT/SGPT 25 U/L (<40); AST/SGOT 34 U/L (<40); Albumin 2.5 gm/dL (3.2-5.2); Albumin/Globulin Ratio 0.9 (1.0-2.3); Alkaline Phosphatase 100 U/L (39-117); Bilirubin,Direct 2.4 mg/dL (<0.3); Bilirubin,Total 3.6 mg/dL (0.1-1.0); Blood Urea Nitrogen 9 mg/dL (8-23); Calcium 8.1 mg/dL (8.6-10.4); Carbon Dioxide 27 mmol/L (22-30); Chloride 100 mmol/L (96-108); Globulin 2.8 gm/dL (2.2-3.7); Glomerular Filtration Rate 116; Glucose 117 mg/dL (70-105); Lactate Dehydrogenase 209 U/L (135-225); Phosphorous 2.9 mg/dL (2.5-4.5); Triglycerides 141 mg/dL (<150)
[2022-06-14] MEDS: 0.9 % SODIUM CHLORIDE 10 ML SYRINGE IV SCH ×2 (09:18→21:35)
[2022-06-14] MEDS: HEPARIN 5,000 UNIT/ML VIAL SQ SCH ×2 (09:25→20:56)
[2022-06-14] MEDS: VANCOMYCIN 2,000 MG in 0.9 % SODIUM CHLORIDE 500 ML IV SCH ×2 (10:13→21:36)
[2022-06-14] MEDS: FLUCONAZOLE 200 MG/100 ML BAG IV SCH (10:13)
[2022-06-14] MEDS: VANCOMYCIN 1,500 MG in 0.9 % SODIUM CHLORIDE 500 ML IV SCH (10:28)
--- NOTE | 2022-06-14 10:55 | General Surgery Progress Note ---
SUBJECTIVE Subjective Patient information: Note initiated : 06/14/22 at 10:50 am Service Date, if different from initiated Date: [] Patient: Juan Jose Cm 62 y/o M admitted on 06/07/22 for Abdominal pain. Chief Complaint: [] Principal diagnosis: Perforated diverticulitis Interval history: Cross covering for Dr. Garzon. Review of patient's chart, patient presented with perforated diverticulitis with around a 2 cm abscess, was placed on appropriate antibiotics and patient initially improved, however hospital day 4-5 patient's white blood cell count went up, repeat CT scan showed single abscess turned into multiple abscesses ranging between [address] Garzon had an extensive discussion with the patient about surgical intervention versus interventional radiology, patient refused surgery at that time and desired interventional radiology. Discussion with multiple hospitals, some of the interventional radiologist did not feel like it could be drained however last night patient was excepted at a hospital in the [facility] and patient refused transfer. Patient reports that over the last 24 hours he feels much better once the antibiotics were changed, he is having bowel movements, decreased fevers and decreased abdominal pain over the last 24 hours. Constitutional Vitals: Vital Signs Temp Pulse Resp BP Pulse Ox O2 Del Method 98.6 F 66 14 130/82 95 Room Air 06/14/22 08:00 06/14/22 08:00 06/14/22 08:00 06/14/22 08:00 06/14/22 08:00 06/14/22 08:00 Period Temp Pulse Resp BP Sys/Yeh Pulse Ox O2 Del Method O2 Flow Rate Last 24 Hr 98.6 F-99.5 F 66-99 14-24 129-160/76-84 94-98 Room Air-Room Air Intake and Output 06/13/22 06/14/22 06/14/22 19:59 03:59 11:59 Intake Total 418 1645 1115 Balance 418 1645 1115 Weight 217 lb 14.4 oz Intake & Output: Intake & Output 06/13/22 06/14/22 06/14/22 19:59 03:59 11:59 Intake Total 418 1645 1115 Balance 418 1645 1115 Weight 217 lb 14.4 oz Intake: IV 298 1615 1115 Dextrose 5%-Ns W/20Meq KCl 1, 133 1000 1000 000 ml @ 125 mls/hr IV .Q8H [facility] Rx#:[id number] Merrem 0.5 gm In Sodium 100 50 50 Chloride 0.9% 50 ml @ 100 mls/ hr IV Q6H [facility] Rx#:[id number] Vancomycin 1,500 mg In Sodium 500 Chloride 0.9% 500 ml @ 333.3 mls/hr IV Q12H [facility] Rx#: [id number] Oral 120 30 Other: Stool Size Small Stool Color Brown Brown Stool Consistency Loose Loose # Voids 1 1 2 # Bowel Movements 1 1 2 Exam: Conversant, non toxic, NAD Respiratory Respiratory exam: Present normal respiratory exam Additional comments: normal effort without distress Cardiovascular Cardiovascular exam: Present normal rate and rhythm and RRR GI/Abdominal Additional comments: soft, minimally to non tender, some distension remains Extremities Exam Additional comments: well perfused, chronic LE edema A/P Assessment and plan (1) Sigmoid diverticulitis: Plan: This is a pleasant 62-year-old gentleman with perforated appendicitis. Long discussion with the patient and his about treatment options, reiterated that abscess is less than 2 cm typically get better with n.p.o. and IV antibiotics, second CT scan showed multiple abscesses in between 2 to 5 cm. Long discussion with patient about 50-50 chance of improvement with IV antibio tics and n.p.o., reviewed that with interventional radiology or surgical intervention that would improve the chance of the abscess is resolving. At this time patient does not want to be transferred for interventional radiology, he does not want surgical intervention at this time. We reviewed that he still has a decent chance of improving with IV antibiotics and n.p.o. Given his long course at this time his TPN and PICC lines were ordered yesterday, they have not been started as of yet. White blood cell count slightly improved today. We will continue with n.p.o., IV antibiotics, TPN and follow clinical course. Patient and 's questions were all answered, they agree with this course of treatment at this time. Status: Acute Time Spent With Patient Time: Total time spent is greater than 50% in coordination of care (as documented) at patient's floor/unit and/or counseling patient:
--- NOTE | 2022-06-14 14:26 | Internal Med Progress Note ---
SUBJECTIVE Subjective Patient information: Note initiated : 06/14/22 at 2:20 pm Service Date, if different from initiated Date: [] Patient: Juan Jose Cm 62 y/o M admitted on 06/07/22 for Abdominal pain. Chief Complaint: [] Principal diagnosis: Perforated diverticulitis Interval history: Patient is a 62 years old gentleman otherwise healthy presented to the ED on 06/07/22 for abdominal pain. Abdominal imaging showing sigmoid diverticulitis with 2.3 cm abscess. No sign of bowel perforations noted at that point. It was determined that the size of the abscess was too small to be drained by IR. Patient was started on bowel rest, antibiotics with meropenem, and narcotics as needed for symptoms control. Repeat CT abdomen pelvis on 06/12/22 showing severe sigmoid arthritis which has become worse since initial study. Multiloculated abscess collections throughout the abdomen and pelvis, most of them are on the right side. The majority of these cannot be safely drained percutaneously due to overlying bowel and bladder. New onset heterogeneous area in the liver parenchyma in the right lobe. It may be seen with sepsis. New onset bibasilar atelectasis and right-sided pleural effusions. To my surprise, no blood culture were collected in the ED. Patient's WBC gradually and today it is 23.7. Due to the worsening nature of his diverticulitis and increasing in size and number of the abscesses, patient was being placed in wait lists from 2 hospitals [facility] in [place] and another [facility] in [facility]. PICC line insertion and TPN feeding will 06/14: Low-grade fever overnight Tmax 37.5. [facility] called last evening for an available bed, but patient turned it down and wanted to stay in our facility for continued conservative medical treatment for the time being. [facility] has not called us back yet. Patient is feeling great this afternoon, severity of abdominal pain very minimal. He denies any nausea or vomiting and he has multiple episode of bowel movement overnight. Continue n.p.o. status and IV fluid infusions and TPN. Pending transfer to [facility] if patient change his mind and want to be transferred. Continue broad-spectrum antibiotics/antifungals with vancomycin, meropenem, and for consult. IV Tylenol and Dilaudid as needed for different levels of pain control. Rest of the surgical management as per the primary team. I have spent approximately 15 to 20 minutes to talk to the patient and his about the reason for transfer, and any potential risk and benefit of doing so. We have also touched base on prognosis. Constitutional Vitals: Vital Signs Temp Pulse Resp BP Pulse Ox O2 Del Method 37.0 C 70 16 144/79 96 Room Air 06/14/22 12:00 06/14/22 12:00 06/14/22 12:00 06/14/22 12:00 06/14/22 12:00 06/14/22 12:00 Period Temp Pulse Resp BP Sys/Yeh Pulse Ox O2 Del Method O2 Flow Rate Last 24 Hr 37.0 C-37.5 C 66-99 14-24 129-152/76-84 95-98 Room Air-Room Air Intake and Output 06/14/22 06/14/22 06/14/22 03:59 11:59 19:59 Intake Total 1645 1115 650 Balance 1645 1115 650 Weight 98.838 kg Intake & Output: Intake & Output 06/14/22 06/14/22 06/14/22 03:59 11:59 19:59 Intake Total 1645 1115 650 Balance 1645 1115 650 Weight 98.838 kg Intake: IV 1615 1115 650 Dextrose 5%-Ns W/20Meq KCl 1, 1000 1000 000 ml @ 125 mls/hr IV .Q8H [facility] Rx#:[id number] Merrem 0.5 gm In Sodium 50 50 50 Chloride 0.9% 50 ml @ 100 mls/ hr IV Q6H [facility] Rx#:[id number] Vancomycin 2,000 mg In Sodium 500 500 Chloride 0.9% 500 ml @ 250 mls/ hr IV Q12H [facility] Rx#:[id number] Oral 30 Other: Urine Appearance Clear Urine Color Dark Michelle Urine Odor Strong Stool Color Brown Stool Consistency Loose # Voids 1 2 # Bowel Movements 1 2 Head Head exam: Present atraumatic and normal inspection Eye Eye exam: Present normal appearance ENT ENT exam: Present mucous membranes moist, normal exam and normal external ear exam Neck Neck exam: Present normal inspection Respiratory Respiratory exam: Present normal respiratory exam Cardiovascular Cardiovascular exam: Present normal rate and rhythm GI/Abdominal GI/Abdominal exam: Present normal bowel sounds Back Exam Back exam: Present normal inspection Neurological Exam Neurological exam: Present alert and oriented X3 Skin Skin exam: Present intact and warm OBJ DATA Labs 06/14/22 05:45 06/14/22 05:44 Labs: Abnormal Lab Results 06/14/22 06/14/22 06/13/22 05:45 05:44 11:24 WBC 22.1 H RBC 3.70 L Hgb 12.5 L Hct 36.9 L Immature Gran % (Auto) 1.5 H Neut % (Auto) 86.0 H Lymph % (Auto) 5.1 L Lymph # (Auto) 1.13 L [place] # (Auto) 1.52 H Immature Gran # 0.33 H Absolute Neutrophils 18.97 H Sodium Anion Gap 7.0 L BUN Creatinine 0.5 L 0.5 L Glucose 117 H 125 H Uric Acid 2.0 L 2.2 L Calcium 8.1 L 8.0 L Total Bilirubin 3.6 H 4.4 H Direct Bilirubin 2.4 H 3.3 H GGT 67 H Total Protein 5.3 L 5.3 L Albumin 2.5 L 2.6 L Albumin/Globulin Ratio 0.9 L Prealbumin 3.2 L 06/13/22 06/13/22 06/12/22 06:07 06:07 05:42 WBC 23.7 H RBC 4.11 L Hgb Hct 39.9 L Immature Gran % (Auto) Neut % (Auto) Lymph % (Auto) Lymph # (Auto) [place] # (Auto) Immature Gran # Absolute Neutrophils Sodium 131 L Anion Gap 7.0 L BUN 6 L Creatinine 0.5 L 0.5 L Glucose 138 H 130 H Uric Acid Calcium 8.0 L 8.1 L Total Bilirubin Direct Bilirubin GGT Total Protein Albumin Albumin/Globulin Ratio Prealbumin 06/12/22 05:42 WBC 18.3 H RBC 4.30 L Hgb Hct Immature Gran % (Auto) Neut % (Auto) Lymph % (Auto) Lymph # (Auto) [place] # (Auto) Immature Gran # Absolute Neutrophils Sodium Anion Gap BUN Creatinine Glucose Uric Acid Calcium Total Bilirubin Direct Bilirubin GGT Total Protein Albumin Albumin/Globulin Ratio Prealbumin Meds: Medications Al Hydrox/Mg Hydrox/Simethicone (Mag Hydrox/Al Hydrox/Simeth 30 Ml Oral.Susp) 30 ml PO Q3HP PRN PRN Reason: Dyspepsia Last Admin: 06/08/22 15:54 Dose: 30 ml Fentanyl (Fentanyl 100 Mcg/2 Ml Vial) 50 mcg IV Q2HP PRN; Protocol PRN Reason: Per Pain Protocol Last Admin: 06/07/22 14:34 Dose: 50 mcg Heparin Sodium (Porcine) (Heparin Flush 10 Units/Ml 5 Ml Syringe) 2 ml IV Q12 [facility] Last Admin: 06/14/22 09:18 Dose: Not Given Heparin Sodium (Porcine) (Heparin 5,000 Unit/Ml Vial) 5,000 unit SQ Q12 [facility] Last Admin: 06/14/22 09:25 Dose: 5,000 unit Hydralazine HCl (Hydralazine 20 Mg/Ml Vial) 10 mg IV Q4-6HP PRN PRN Reason: Hypertension Hydromorphone HCl (Hydromorphone 0.5 Mg/0.5 Ml Syringe) 0.5 - 1 mg IV Q1HP PRN; Protocol PRN Reason: Per Pain Protocol Last Admin: 06/13/22 11:22 Dose: 0.5 mg Meropenem 0.5 gm/ Sodium (Chloride) 50 mls @ 100 mls/hr IV Q6H [facility]; Protocol Last Infusion: 06/14/22 14:09 Dose: Infused Potassium Chloride/Dextrose/Sod Cl (Dextrose 5%-Ns W/20meq Kcl) 1,000 mls @ 125 mls/hr IV .Q8H [facility] Last Admin: 06/14/22 09:25 Dose: 125 mls/hr Fluconazole (Diflucan) 200 mg in 100 mls @ 100 mls/hr IV Q24H [facility] Last Infusion: 06/14/22 12:26 Dose: Infused Acetaminophen (Ofirmev) 650 mg in 65 mls @ 130 mls/hr IV Q6HP PRN; Protocol PRN Reason: PAIN/FEVER > 101 Last Infusion: 06/14/22 09:15 Dose: Infused Vancomycin HCl 2,000 mg/ (Sodium Chloride) 500 mls @ 250 mls/hr IV Q12H [facility] Last Infusion: 06/14/22 12:26 Dose: Infused Ondansetron HCl (Ondansetron 4 Mg/2 Ml Vial) 4 mg IV Q4HP PRN PRN Reason: Nausea And Vomiting Last Admin: 06/07/22 17:30 Dose: 4 mg Pantoprazole Sodium ([facility] 40 Mg [facility]ial) [facility] Admin: 06/14/22 08:04 Dose: 40 mg Sodium Chloride (0.9 % Sodium Chloride 10 Ml Syringe) 10 ml IV Q12 [facility] Last Admin: 06/14/22 09:18 Dose: Not Given Sodium Chloride (0.9 % Sodium Chloride 10 Ml Syringe) 10 ml IV UD PRN PRN Reason: FLUSH Vancomycin HCl (Vancomycin Per Pharmacy) 1 order IV UD [facility]; Protocol A/P Assessment and plan (1) Sigmoid diverticulitis: Status: Acute Narrative A/P Narrative: Assessment and Plans: 1. Sigmoid diverticulitis with multiple abscesses: NPO with IV fluid for hydration PICC line insertion and TPN for nutrition Pending transfer to [facility] in [place]; [facility] in [facility] for IR/colorectal surgery management if patient changes his mind and wants to be tr ansferred Tylenol IV Dilaudid IV Blood culture, no growth to date Daily cbc w/ auto diff Vancomycin Meropenem Fluconazole Hydralazine 10mg IV q4-6hr PRN SBP>=180 and/or DBP>=110mmHg Incentive spirometry Q1HWA Thank you for the consultation, will continue to follow Time Spent With Patient Time: Total time spent is greater than 50% in coordination of care (as documented) at patient's floor/unit and/or counseling patient: Subsequent: Total time with patient: 35 - 49 minutes QUALITY VTE Deep Vein Thrombosis/Pulmonary Embolism Present on Admission: No
--- NOTE | 2022-06-14 17:32 | General Surgery Progress Note ---
SUBJECTIVE Subjective Patient information: Note initiated : 06/14/22 at 5:31 pm Service Date, if different from initiated Date: [] Patient: Juan Jose Cm 62 y/o M admitted on 06/07/22 for Abdominal pain. Chief Complaint: [] Principal diagnosis: Perforated diverticulitis Interval history: Patient seen and examined. No fevers chills nausea vomiting today. Patient reports that he feels better than he did this morning. Constitutional Vitals: Vital Signs Temp Pulse Resp BP Pulse Ox O2 Del Method 98.6 F 72 18 151/82 97 Room Air 06/14/22 16:00 06/14/22 16:00 06/14/22 16:00 06/14/22 16:00 06/14/22 16:00 06/14/22 16:00 Period Temp Pulse Resp BP Sys/Yeh Pulse Ox O2 Del Method O2 Flow Rate Last 24 Hr 98.6 F-99.5 F 66-86 14-24 129-151/77-84 95-98 Room Air-Room Air Intake and Output 06/14/22 06/14/22 06/14/22 03:59 11:59 19:59 Intake Total 1645 1115 1070 Balance 1645 1115 1070 Weight 217 lb 14.4 oz Intake & Output: Intake & Output 06/14/22 06/14/22 06/14/22 03:59 11:59 19:59 Intake Total 1645 1115 1070 Balance 1645 1115 1070 Weight 217 lb 14.4 oz Intake: IV 1615 1115 650 Dextrose 5%-Ns W/20Meq KCl 1, 1000 1000 000 ml @ 125 mls/hr IV .Q8H [facility] Rx#:[id number] Merrem 0.5 gm In Sodium 50 50 50 Chloride 0.9% 50 ml @ 100 mls/ hr IV Q6H [facility] Rx#:[id number] Vancomycin 2,000 mg In Sodium 500 500 Chloride 0.9% 500 ml @ 250 mls/ hr IV Q12H [facility] Rx#:[id number] Oral 30 GI Tube Flush 420 Other: Urine Appearance Clear Urine Color Dark Michelle Urine Odor Strong Stool Size Moderate Stool Color Brown Brown Yellow Stool Consistency Loose Loose # Voids 1 2 2 # Bowel Movements 1 2 2 A/P Assessment and plan (1) Sigmoid diverticulitis: Plan: Continue with current management. Status: Acute Time Spent With Patient Time: Total time spent is greater than 50% in coordination of care (as documented) at patient's floor/unit and/or counseling patient:
--- NOTE | 2022-06-14 18:52 | XRay Report ---
HISTORY: PICC line insertion FINDINGS: A PICC line has been inserted through the left arm. The tip is at the junction of the superior vena cava and right atrium. No pneumothorax, pleural effusion or widening of the mediastinum are present. There is an alveolar infiltrate in the right lower lobe and a smaller infiltrate around the left upper hilum. The heart size is normal. IMPRESSION: No complication following PICC line insertion Follow-up pulmonary infiltrates Nursing on [facility] was called with the results Interpreted and Authenticated by: Ted Estrella 06/14/22
[2022-06-15] MEDS: DEXTROSE 5%-NS W/20MEQ KCL 1,000 ML IV SCH ×4 (02:16→20:30)
[2022-06-15] MEDS: ACETAMINOPHEN 650 MG/65 ML BAG IV PRN ×3 (05:27→22:40)
[2022-06-15] MEDS: MEROPENEM 0.5 GM in 0.9 % SODIUM CHLORIDE 50 ML IV SCH ×4 (06:11→23:43)
[2022-06-15] MEDS: PANTOPRAZOLE 40 MG VIAL IV SCH (07:42)
--- NOTE | 2022-06-15 07:51 | General Surgery Progress Note ---
SUBJECTIVE Subjective Patient information: Note initiated : 06/15/22 at 7:49 am Service Date, if different from initiated Date: [] Patient: Juan Jose Cm 62 y/o M admitted on 06/07/22 for Abdominal pain. Chief Complaint: [] Principal diagnosis: Perforated diverticulitis Interval history: Patient admitted with perforated sigmoid diverticulitis, over the last 24 hours patient reports he has felt better, his abdomen is achy but feels somewhat better. He continues to pass gas, is afebrile and has normal vital signs. Constitutional Vitals: Vital Signs Temp Pulse Resp BP Pulse Ox O2 Del Method 98.3 F 79 16 158/76 94 Room Air 06/15/22 03:58 06/15/22 03:58 06/15/22 03:58 06/15/22 03:58 06/15/22 03:58 06/15/22 03:58 Period Temp Pulse Resp BP Sys/Yeh Pulse Ox O2 Del Method O2 Flow Rate Last 24 Hr 98.1 F-98.6 F 66-79 14-18 130-160/76-86 94-97 Room Air-Room A ir Intake and Output 06/14/22 06/15/22 06/15/22 19:59 03:59 11:59 Intake Total 3707 817 115 Balance 3707 817 115 Weight 217 lb 8 oz Intake & Output: Intake & Output 06/14/22 06/15/22 06/15/22 19:59 03:59 11:59 Intake Total 3707 817 115 Balance 3707 817 115 Weight 217 lb 8 oz Intake: IV 3287 817 115 Dextrose 5%-1/2Ns W/20Meq KCl 1 587 ,000 ml @ 125 mls/hr IV .Q8H [facility] Rx#:[id number] Dextrose 5%-Ns W/20Meq KCl 1, 2000 202 000 ml @ 125 mls/hr IV .Q8H [facility] Rx#:[id number] Merrem 0.5 gm In Sodium 100 50 50 Chloride 0.9% 50 ml @ 100 mls/ hr IV Q6H [facility] Rx#:[id number] Vancomycin 2,000 mg In Sodium 500 500 Chloride 0.9% 500 ml @ 250 mls/ hr IV Q12H [facility] Rx#:[id number] GI Tube Flush 420 Other: Stool Size Moderate Large Stool Color Brown Brown Yellow Stool Consistency Loose Normal for Patient # Voids 2 2 # Bowel Movements 2 2 Exam: Conversant, non toxic, NAD Respiratory Respiratory exam: Present normal respiratory exam Additional comments: normal effort without distress Cardiovascular Cardiovascular exam: Present normal rate and rhythm and RRR GI/Abdominal Additional comments: soft, minimally to non tender, some distension remains Extremities Exam Additional comments: well perfused, chronic LE edema A/P Assessment and plan (1) Sigmoid diverticulitis: Status: Acute Plan CBC, BMP pending. Continue with current medical management, continue n.p.o. We will review labs and make any changes after that. Awaiting TPN to start. Time Spent With Patient Time: Total time spent is greater than 50% in coordination of care (as documented) at patient's floor/unit and/or counseling patient:
[2022-06-15 07:53] LABS: ALT/SGPT 23 U/L (<40); AST/SGOT 27 U/L (<40); Albumin 2.4 gm/dL (3.2-5.2); Albumin/Globulin Ratio 0.9 (1.0-2.3); Alkaline Phosphatase 98 U/L (39-117); Bilirubin,Total 1.8 mg/dL (0.1-1.0); Blood Urea Nitrogen 5 mg/dL (8-23); Calcium 7.8 mg/dL (8.6-10.4); Carbon Dioxide 26 mmol/L (22-30); Chloride 102 mmol/L (96-108); Globulin 2.8 gm/dL (2.2-3.7); Glomerular Filtration Rate 127; Glucose 118 mg/dL (70-105); Lactate Dehydrogenase 187 U/L (135-225); Phosphorous 3.1 mg/dL (2.5-4.5); Triglycerides 206 mg/dL (<150); Uric Acid 1.9 mg/dL (2.5-8.0)
[2022-06-15 07:54] LABS: Basophils # (Auto) 0.04 K/mcL (0.00-0.30); Basophils % (Auto) 0.3 % (0.0-2.0); Eosinophils # (Auto) 0.09 K/mcL (0.00-0.70); Eosinophils % (Auto) 0.7 % (0.0-7.0); Hematocrit 36.1 % (40.1-51.0); Hemoglobin 12.2 g/dL (13.7-17.5); Lymphocytes # (Auto) 1.17 K/mcL (1.50-4.80); Lymphocytes % (Auto) 9.5 % (15.5-49.0); Mean Corpuscular HGB Conc 33.8 g/dL (31.0-36.0); Mean Platelet Volume 10.2 fL (8.8-12.5); Monocytes # (Auto) 0.84 K/mcL (0.10-0.90); Monocytes % (Auto) 6.9 % (1.0-12.0); Neutrophils % (Auto) 81.8 % (38.0-78.0); Platelet Count 422 K/mcL (140-440); RBC 3.61 M/mcL (4.63-6.08); Red Cell Distribution Width 13.5 % (11.5-14.5); WBC 12.3 K/mcL (4.5-11.0)
[2022-06-15] MEDS: HEPARIN 5,000 UNIT/ML VIAL SQ SCH ×2 (09:08→20:30)
[2022-06-15] MEDS: 0.9 % SODIUM CHLORIDE 10 ML SYRINGE IV SCH ×2 (09:09→20:32)
[2022-06-15] MEDS ORDERED: [UNRECOGNIZED DRUG - OTHER] IV SCH (10:00)
[2022-06-15] MEDS ORDERED: POTASSIUM CHLORIDE IV SCH (10:00)
[2022-06-15] MEDS ORDERED: MAGNESIUM SULFATE IV SCH (10:00)
[2022-06-15] MEDS ORDERED: CALCIUM GLUCONATE IV SCH (10:00)
[2022-06-15] MEDS: FLUCONAZOLE 200 MG/100 ML BAG IV SCH (10:12)
--- NOTE | 2022-06-15 10:30 | Internal Med Progress Note ---
SUBJECTIVE Subjective Patient information: Note initiated : 06/15/22 at 10:25 am Service Date, if different from initiated Date: [] Patient: Juan Jose Cm 62 y/o M admitted on 06/07/22 for Abdominal pain. Chief Complaint: [] Principal diagnosis: Perforated diverticulitis Interval history: Patient is a 62 years old gentleman otherwise healthy presented to the ED on 06/07/22 for abdominal pain. Abdominal imaging showing sigmoid diverticulitis with 2.3 cm abscess. No sign of bowel perforations noted at that point. It was determined that the size of the abscess was too small to be drained by IR. Patient was started on bowel rest, antibiotics with meropenem, and narcotics as needed for symptoms control. Repeat CT abdomen pelvis on 06/12/22 showing severe sigmoid arthritis which has become worse since initial study. Multiloculated abscess collections throughout the abdomen and pelvis, most of them are on the right side. The majority of these cannot be safely drained percutaneously due to overlying bowel and bladder. New onset heterogeneous area in the liver parenchyma in the right lobe. It may be seen with sepsis. New onset bibasilar atelectasis and right-sided pleural effusions. To my surprise, no blood culture were collected in the ED. Patient's WBC gradually and today it is 23.7. Due to the worsening nature of his diverticulitis and increasing in size and number of the abscesses, patient was being placed in wait lists from 2 hospitals [place] in [place] and another [facility] in [facility]. PICC line insertion and TPN feeding will 06/14: Low-grade fever overnight Tmax 37.5. [facility] called last evening for an available bed, but patient turned it down and wanted to stay in our facility for continued conservative medical treatment for the time being. [facility] has not called us back yet. Patient is feeling great this afternoon, severity of abdominal pain very minimal. He denies any nausea or vomiting and he has multiple episode of bowel movement overnight. Continue n.p.o. status and IV fluid infusions and TPN. Pending transfer to [facility] if patient change his mind and want to be transferred. Continue broad-spectrum antibiotics/antifungals with vancomycin, meropenem, and Fluconazole. IV Tylenol and Dilaudid as needed for different levels of pain control. Rest of the surgical management as per the primary team. I have spent approximately 15 to 20 minutes to talk to the patient and his about the reason for transfer, and any potential risk and benefit of doing so. We have also touched base on prognosis. 06/15: Patient has been afebrile overnight. Cultures no growth today. WBC went down from 22.1 yesterday to 12.3 today. Patient is complaining of soreness of his abdomen but denies having any extra abdominal pain or abdominal distention's. He denies having any nausea or vomiting. Status post PICC line placement yesterday. PICC line in place, will start TPN soon. Keep the patient n.p.o. otherwise. Continue broad-spectrum antibiotics/antifungals with vancomycin, meropenem, and Fluconazole, while monitoring for blood culture result. IV Tylenol and Dilaudid as needed for different levels of pain control. Rest of the surgical management as per the primary team. Patient is currently not interested in being transferred to another hospital for surgical management; he would like to continue receiving conservative medical management at this point. Constitutional Vitals: Vital Signs Temp Pulse Resp BP Pulse Ox O2 Del Method 36.3 C 71 18 146/85 97 Room Air 06/15/22 07:50 06/15/22 07:50 06/15/22 07:50 06/15/22 07:50 06/15/22 07:50 06/15/22 07:50 Period Temp Pulse Resp BP Sys/Yeh Pulse Ox O2 Del Method O2 Flow Rate Last 24 Hr 36.3 C-37.0 C 70-79 16-18 144-160/76-86 94-97 Room Air-Room Air Intake and Output 06/14/22 06/15/22 06/15/22 19:59 03:59 11:59 Intake Total 3707 817 115 Balance 3707 817 115 Weight 98.656 kg Intake & Output: Intake & Output 06/14/22 06/15/22 06/15/22 19:59 03:59 11:59 Intake Total 3707 817 115 Balance 3707 817 115 Weight 98.656 kg Intake: IV 3287 817 115 Dextrose 5%-1/2Ns W/20Meq KCl 1 587 ,000 ml @ 125 mls/hr IV .Q8H [facility] Rx#:[id number] Dextrose 5%-Ns W/20Meq KCl , 2000 202 000 ml @ 125 mls/hr IV .Q8H [facility] Rx#:[id number] Merrem 0.5 gm In Sodium 100 50 50 Chloride 0.9% 50 ml @ 100 mls/ hr IV Q6H [facility] Rx#:[id number] Vancomycin 2,000 mg In Sodium 500 500 Chloride 0.9% 500 ml @ 250 mls/ hr IV Q12H [facility] Rx#:[id number] GI Tube Flush 420 Other: Urine Appearance Clear Urine Color Dark Michelle Urine Odor Strong Stool Size Moderate Large Moderate Stool Color Brown Brown Brown Yellow Yellow Stool Consistency Loose Normal for Patient Soft Loose # Voids 2 2 # Bowel Movements 2 2 1 Head Head exam: Present atraumatic and normal inspection Eye Eye exam: Present normal appearance ENT ENT exam: Present mucous membranes moist, normal exam and normal external ear exam Neck Neck exam: Present normal inspection Respiratory Respiratory exam: Present normal respiratory exam Cardiovascular Cardiovascular exam: Present normal rate and rhythm GI/Abdominal GI/Abdominal exam: Present tenderness Back Exam Back exam: Present normal inspection Neurological Exam Neurological exam: Present alert and oriented X3 Skin Skin exam: Present intact and warm OBJ DATA Labs 06/15/22 05:25 06/15/22 05:25 Labs: Abnormal Lab Results 06/15/22 06/15/22 06/14/22 05:25 05:25 05:45 WBC 12.3 H 22.1 H RBC 3.61 L 3.70 L Hgb 12.2 L 12.5 L Hct 36.1 L 36.9 L Immature Gran % (Auto) 0.8 H 1.5 H Neut % (Auto) 81.8 H 86.0 H Lymph % (Auto) 9.5 L 5.1 L Lymph # (Auto) 1.[address] [place] # (Auto) 1.52 H Immature Gran # 0.10 H 0.33 H Absolute Neutrophils 10.02 H 18.97 H Anion Gap BUN 5 L Creatinine 0.4 L Glucose 118 H Uric Acid 1.9 L Calcium 7.8 L Total Bilirubin 1.8 H Direct Bilirubin 1.0 H GGT Total Protein 5.2 L Albumin 2.4 L Albumin/Globulin Ratio 0.9 L Prealbumin Triglycerides 206 H 06/14/22 06/13/22 06/13/22 05:44 11:24 06:07 WBC RBC Hgb Hct Immature Gran % (Auto) Neut % (Auto) Lymph % (Auto) Lymph # (Auto) [place] # (Auto) Immature Gran # Absolute Neutrophils Anion Gap 7.0 L 7.0 L BUN Creatinine 0.5 L 0.5 L 0.5 L Glucose 117 H 125 H 138 H Uric Acid 2.0 L 2.2 L Calcium 8.1 L 8.0 L 8.0 L Total Bilirubin 3.6 H 4.4 H Direct Bilirubin 2.4 H 3.3 H GGT 67 H Total Protein 5.3 L 5.3 L Albumin 2.5 L 2.6 L Albumin/Globulin Ratio 0.9 L Prealbumin 3.2 L Triglycerides 06/13/22 06:07 WBC 23.7 H RBC 4.11 L Hgb Hct 39.9 L Immature Gran % (Auto) Neut % (Auto) Lymph % (Auto) Lymph # (Auto) [place] # (Auto) Immature Gran # Absolute Neutrophils Anion Gap BUN Creatinine Glucose Uric Acid Calcium Total Bilirubin Direct Bilirubin GGT Total Protein Albumin Albumin/Globulin Ratio Prealbumin Triglycerides Meds: Medications Al Hydrox/Mg Hydrox/Simethicone (Mag Hydrox/Al Hydrox/Simeth 30 Ml Oral.Susp) 30 ml PO Q3HP PRN PRN Reason: Dyspepsia Last Admin: 06/08/22 15:54 Dose: 30 ml Fentanyl (Fentanyl 100 Mcg/2 Ml Vial) 50 mcg IV Q2HP PRN; Protocol PRN Reason: Per Pain Protocol Last Admin: 06/07/22 14:34 Dose: 50 mcg Heparin Sodium (Porcine) (Heparin Flush 10 Units/Ml 5 Ml Syringe) 2 ml IV Q12 [facility] Last Admin: 06/15/22 09:09 Dose: 2 ml Heparin Sodium (Porcine) (Heparin 5,000 Unit/Ml Vial) 5,000 unit SQ Q12 [facility] Last Admin: 06/15/22 09:08 Dose: 5,000 unit Hydralazine HCl (Hydralazine 20 Mg/Ml Vial) 10 mg IV Q4-6HP PRN PRN Reason: Hypertension Hydromorphone HCl (Hydromorphone 0.5 Mg/0.5 Ml Syringe) 0.5 - 1 mg IV Q1HP PRN; Protocol PRN Reason: Per Pain Protocol Last Admin: 06/13/22 11:22 Dose: 0.5 mg Meropenem 0.5 gm/ Sodium (Chloride) 50 mls @ 100 mls/hr IV Q6H [facility]; Protocol Last Infusion: 06/15/22 07:33 Dose: Infused Potassium Chloride/Dextrose/Sod Cl (Dextrose 5%-Ns W/20meq Kcl) 1,000 mls @ 125 mls/hr IV .Q8H [facility] Last Admin: 06/15/22 03:53 Dose: 125 mls/hr Fluconazole (Diflucan) 200 mg in 100 mls @ 100 mls/hr IV Q24H [facility] Last Admin: 06/15/22 10:12 Dose: 100 mls/hr Acetaminophen (Ofirmev) 650 mg in 65 mls @ 130 mls/hr IV Q6HP PRN; Protocol PRN Reason: PAIN/FEVER > 101 Last Infusion: 06/15/22 06:14 Dose: Infused Vancomycin HCl 2,000 mg/ (Sodium Chloride) 500 mls @ 250 mls/hr IV Q12H [facility] Last Infusion: 06/14/22 23:39 Dose: Infused Calcium Gluconate 4.65 meq/Magnesium Sulfate 16.24 meq/Potassium Chloride 40 meq/Multivitamins/Minerals 10 ml/Sodium Phosphate 20 mmol/Amino Acids 1,050.6667 mls @ 40 mls/hr IV Q24H [facility] Fat Emulsion Intravenous (Intralipid 20%) 250 mls @ 25 mls/hr IV TuThSa@1600 [facility] Ondansetron HCl (Ondansetron 4 Mg/2 Ml Vial) 4 mg IV Q4HP PRN PRN Reason: Nausea And Vomiting Last Admin: 06/07/22 17:30 Dose: 4 mg Pantoprazole Sodium (Pantoprazole 40 Mg Vial) 40 mg IV QAMAC [facility] Last Admin: 06/15/22 07:42 Dose: 40 mg Sodium Chloride (0.9 % Sodium Chloride 10 Ml Syringe) 10 ml IV Q12 [facility] Last Admin: 06/15/22 09:09 Dose: 10 ml Sodium Chloride (0.9 % Sodium Chloride 10 Ml Syringe) 10 ml IV UD PRN PRN Reason: FLUSH Vancomycin HCl (Vancomycin Per Pharmacy) 1 order IV UD [facility]; Protocol A/P Assessment and plan (1) Sigmoid diverticulitis: Status: Acute Narrative A/P Narrative: Assessment and Plans: 1. Sigmoid diverticulitis with multiple abscesses: NPO with IV fluid for hydration Pending TPN via PICC for nutrition Patient is currently not interested in being transferred to another hospital for surgical management; he would like to continue receiving conservative medical management at this point Tylenol IV Dilaudid IV Blood culture, no growth to date Daily cbc w/ auto diff Vancomycin Meropenem Fluconazole Hydralazine 10mg IV q4-6hr PRN SBP>=180 and/or DBP>=110mmHg Incentive spirometry Q1HWA Thank you for the consultation, will continue to follow Time Spent With Patient Time: Total time spent is greater than 50% in coordination of care (as documented) at patient's floor/unit and/or counseling patient: Subsequent: Total time with patient: 35 - 49 minutes QUALITY VTE Deep Vein Thrombosis/Pulmonary Embolism Present on Admission: No
[2022-06-15] MEDS: VANCOMYCIN 2,000 MG in 0.9 % SODIUM CHLORIDE 500 ML IV SCH ×2 (10:39→20:30)
[2022-06-15] MEDS ORDERED: DEXTROSE 50% 50 ML VIAL IV PRN (10:58)
[2022-06-15] MEDS ORDERED: DEXTROSE 31 GM ORAL.SUSP PO PRN (10:58)
[2022-06-15] MEDS: INSULIN LISPRO 1 UNIT/0.01 ML UNIT SQ SCH ×3 (12:10→23:43)
[2022-06-16] MEDS: ACETAMINOPHEN 650 MG/65 ML BAG IV PRN ×2 (04:57→14:54)
[2022-06-16] MEDS: DEXTROSE 5%-NS W/20MEQ KCL 1,000 ML IV SCH ×4 (04:57→17:26)
[2022-06-16] MEDS: INSULIN LISPRO 1 UNIT/0.01 ML UNIT SQ SCH ×4 (06:45→23:23)
[2022-06-16 06:51] LABS: Basophils # (Auto) 0.04 K/mcL (0.00-0.30); Basophils % (Auto) 0.4 % (0.0-2.0); Eosinophils # (Auto) 0.13 K/mcL (0.00-0.70); Eosinophils % (Auto) 1.3 % (0.0-7.0); Hematocrit 36.6 % (40.1-51.0); Hemoglobin 12.3 g/dL (13.7-17.5); Lymphocytes # (Auto) 1.24 K/mcL (1.50-4.80); Lymphocytes % (Auto) 11.9 % (15.5-49.0); Mean Cell Volume 99.2 fL (80.0-100.0); Mean Corpuscular HGB Conc 33.6 g/dL (31.0-36.0); Mean Platelet Volume 10.1 fL (8.8-12.5); Monocytes # (Auto) 0.79 K/mcL (0.10-0.90); Monocytes % (Auto) 7.6 % (1.0-12.0); Neutrophils % (Auto) 78.1 % (38.0-78.0); Platelet Count 482 K/mcL (140-440); RBC 3.69 M/mcL (4.63-6.08); Red Cell Distribution Width 13.3 % (11.5-14.5); WBC 10.4 K/mcL (4.5-11.0)
[2022-06-16] MEDS: MEROPENEM 0.5 GM in 0.9 % SODIUM CHLORIDE 50 ML IV SCH ×3 (06:59→17:46)
[2022-06-16] MEDS: PANTOPRAZOLE 40 MG VIAL IV SCH (07:20)
[2022-06-16 07:40] LABS: ALT/SGPT 25 U/L (<40); AST/SGOT 31 U/L (<40); Albumin 2.6 gm/dL (3.2-5.2); Albumin/Globulin Ratio 0.9 (1.0-2.3); Alkaline Phosphatase 109 U/L (39-117); Bilirubin,Direct 0.7 mg/dL (<0.3); Bilirubin,Total 1.7 mg/dL (0.1-1.0); Blood Urea Nitrogen 4 mg/dL (8-23); Calcium 7.9 mg/dL (8.6-10.4); Carbon Dioxide 26 mmol/L (22-30); Chloride 102 mmol/L (96-108); Glomerular Filtration Rate 127; Glucose 117 mg/dL (70-105); Lactate Dehydrogenase 230 U/L (135-225); Phosphorous 3.1 mg/dL (2.5-4.5); Triglycerides 181 mg/dL (<150); Uric Acid 1.7 mg/dL (2.5-8.0)
[2022-06-16 07:51] LABS: Prealbumin 6.2 mg/dL (20.0-40.0)
[2022-06-16] MEDS: HEPARIN 5,000 UNIT/ML VIAL SQ SCH ×2 (09:16→21:00)
[2022-06-16] MEDS: 0.9 % SODIUM CHLORIDE 10 ML SYRINGE IV SCH ×2 (09:17→20:39)
[2022-06-16] MEDS ORDERED: CALCIUM GLUCONATE IV SCH (10:00)
[2022-06-16] MEDS ORDERED: MAGNESIUM SULFATE IV SCH (10:00)
[2022-06-16] MEDS ORDERED: POTASSIUM CHLORIDE IV SCH (10:00)
[2022-06-16] MEDS ORDERED: [UNRECOGNIZED DRUG - OTHER] IV SCH (10:00)
[2022-06-16] MEDS: FLUCONAZOLE 200 MG/100 ML BAG IV SCH (11:00)
[2022-06-16] MEDS: VANCOMYCIN 2,000 MG in 0.9 % SODIUM CHLORIDE 500 ML IV SCH ×2 (11:00→21:00)
--- NOTE | 2022-06-16 15:18 | General Surgery Progress Note ---
SUBJECTIVE Subjective Patient information: Note initiated : 06/16/22 at 745am Service Date, if different from initiated Date: [] Patient: Juan Jose Cm 62 y/o M admitted on 06/07/22 for Abdominal pain. Chief Complaint: [] Continues to feel markedly improved, passing gas and stool with dramatically diminished abdominal pain. Principal diagnosis: Perforated diverticulitis Constitutional Vitals: Vital Signs Temp Pulse Resp BP Pulse Ox O2 Del Method 97.9 F 64 26 H 162/82 95 Room Air 06/16/22 11:35 06/16/22 11:35 06/16/22 11:35 06/16/22 11:35 06/16/22 11:35 06/16/22 11:35 Period Temp Pulse Resp BP Sys/Yeh Pulse Ox O2 Del Method O2 Flow Rate Last 24 Hr 97.9 F-98.8 F 62-75 16-26 148-162/74-90 94-97 Room Air-Room Air Intake and Output 06/16/22 06/16/22 06/16/22 03:59 11:59 19:59 Intake Total 2115 1115 2700.6667 Balance 2115 1115 2700.6667 Weight 217 lb 217 lb Patient Weight 06/17/22 03:59 Weight 217 lb Intake & Output: Intake & Output 06/16/22 06/16/22 06/16/22 03:59 11:59 19:59 Intake Total 2115 1115 2700.6667 Balance 2115 1115 2700.6667 Weight 217 lb 217 lb Intake: IV 1615 1115 2700.6667 Calcium Gluconate 4.65 Meq 1050.6667 Magnesium Sulfate 16.24 Meq Potassium Chloride 40 Meq Infuvite Adult 10 ml Sodium Phosphate 20 Mmol In Clinimix 5 %-20% Solution 1,000 ml @ 40 mls/hr IV Q24H [facility] Rx#: [id number] Dextrose 5%-Ns W/20Meq KCl 1, 1000 1000 1000 000 ml @ 125 mls/hr IV .Q8H [facility] Rx#:[id number] Merrem 0.5 gm In Sodium 50 50 50 Chloride 0.9% 50 ml @ 100 mls/ hr IV Q6H [facility] Rx#:[id number] Vancomycin 2,000 mg In Sodium 500 500 Chloride 0.9% 500 ml @ 250 mls/ hr IV Q12H [facility] Rx#:[id number] Oral 500 Other: Urine Appearance Clear Stool Size Moderate Stool Color Brown Yellow # Voids 3 # Bowel Movements 3 Exam: Looks well, NAD, conversant GI/Abdominal Additional comments: soft and non distended, doesn't seem tender to exam, no peritoneal findings A/P Assessment and plan (1) Sigmoid diverticulitis: Assessment and plan: HD# 9 Sigmoid Diverticulitis with associated Abscess Continues to clinically improve and declines any considerations for transfer at this time for Perc Drainage Issues and Options are reviewed and discussed once again and he is aggreeable to an updated CT scan tomorrow to re evaluate the previously enlarged intra abdominal abscess Continue IV ABs and TPN for now - will start Clears in AM if CT scan looks improved Status: Acute Time Spent With Patient Time: Total time spent is greater than 50% in coordination of care (as documented) at patient's floor/unit and/or counseling patient:
--- NOTE | 2022-06-16 16:30 | Internal Med Progress Note ---
SUBJECTIVE Subjective Patient information: Note initiated : 06/16/22 at 4:25 pm Service Date, if different from initiated Date: [] Patient: Juan Jose Cm 62 y/o M admitted on 06/07/22 for Abdominal pain. Chief Complaint: [] Principal diagnosis: Perforated diverticulitis Interval history: From the prior hospitalist's summation: Patient is a 62 years old gentleman otherwise healthy presented to the ED on 06/07/22 for abdominal pain. Abdominal imaging showing sigmoid diverticulitis with 2.3 cm abscess. No sign of bowel perforations noted at that point. It was determined that the size of the abscess was too small to be drained by IR. Patient was started on bowel rest, antibiotics with meropenem, and narcotics as needed for symptoms control. Repeat CT abdomen pelvis on 06/12/22 showing severe sigmoid arthritis which has become worse since initial study. Multiloculated abscess collections throughout the abdomen and pelvis, most of them are on the right side. The majority of these cannot be safely drained percutaneously due to overlying bowel and bladder. New onset heterogeneous area in the liver parenchyma in the right lobe. It may be seen with sepsis. New onset bibasilar atelectasis and right-sided pleural effusions. To my surprise, no blood culture were collected in the ED. Patient's WBC gradually and today it is 23.7. Due to the worsening nature of his diverticulitis and increasing in size and number of the abscesses, patient was being placed in wait lists from 2 hospitals [place] in [place] and another [facility] in [facility]. PICC line insertion and TPN. 06/14: Low-grade fever overnight Tmax 37.5. [facility] called last evening for an available bed, but patient turned it down and wanted to stay in our facility for continued conservative medical treatment for the time being. [facility] has not called us back yet. Patient is feeling great this afternoon, severity of abdominal pain very minimal. He denies any nausea or vomiting and he has multiple episode of bowel movement overnight. Continue n.p.o. status and IV fluid infusions and TPN. Pending transfer to [facility] if patient change his mind and want to be transferred. Continue broad-spectrum antibiotics/antifungals with vancomycin, meropenem, and Fluconazole. IV Tylenol and Dilaudid as needed for different levels of pain control. Rest of the surgical management as per the primary team. I have spent approximately 15 to 20 minutes to talk to the patient and his about the reason for transfer, and any potential risk and benefit of doing so. We have also touched base on prognosis. 06/15: Patient has been afebrile overnight. Cultures no growth today. WBC went down from 22.1 yesterday to 12.3 today. Patient is complaining of soreness of his abdomen but denies having any extra abdominal pain or abdominal distention's. He denies having any nausea or vomiting. Status post PICC line placement yesterday. PICC line in place, will start TPN soon. Keep the patient n.p.o. otherwise. Continue broad-spectrum antibiotics/antifungals with vancomycin, meropenem, and Fluconazole, while monitoring for blood culture result. IV Tylenol and Dilaudid as needed for different levels of pain control. Rest of the surgical management as per the primary team. Patient is currently not interested in being transferred to another hospital for surgical management; he would like to continue receiving conservative medical management at this point. Jun 16, I have assumed the consultation from the prior hospitalist. WBC now normal. Repeat CT tomorrow. Continue current Abx/antifungal regimen. Constitutional Vitals: Vital Signs Temp Pulse Resp BP Pulse Ox O2 Del Method 97.9 F 64 26 H 162/82 95 Room Air 06/16/22 11:35 06/16/22 11:35 06/16/22 11:35 06/16/22 11:35 06/16/22 11:35 06/16/22 11:35 Period Temp Pulse Resp BP Sys/Yeh Pulse Ox O2 Del Method O2 Flow Rate Last 24 Hr 97.9 F-98.8 F 63-75 16-26 148-162/74-90 94-97 Room Air-Room Air Intake and Output 06/16/22 06/16/22 06/16/22 03:59 11:59 19:59 Intake Total 2114 1118 4341.6693 Balance 21143 4137.6623 Weight 98.43 kg 98.43 kg Patient Weight 06/17/22 03:59 Weight 98.43 kg Intake & Output: Intake & Output 06/16/22 06/16/22 06/16/22 03:59 11:59 19:59 Intake Total 2114 2615 2765.6667 Balance 21145 2765.6667 Weight 98.43 kg 98.43 kg Intake: IV 1615 1115 2765.6667 Calcium Gluconate 4.65 Meq 1050.6667 Magnesium Sulfate 16.24 Meq Potassium Chloride 40 Meq Infuvite Adult 10 ml Sodium Phosphate 20 Mmol In Clinimix 5 %-20% Solution 1,000 ml @ 40 mls/hr IV Q24H [facility] Rx#: [id number] Dextrose 5%-Ns W/20Meq KCl 1, 1000 1000 1000 000 ml @ 125 mls/hr IV .Q8H [facility] Rx#:[id number] Merrem 0.5 gm In Sodium 50 50 50 Chloride 0.9% 50 ml @ 100 mls/ hr IV Q6H [facility] Rx#:[id number] Vancomycin 2,000 mg In Sodium 500 500 Chloride 0.9% 500 ml @ 250 mls/ hr IV Q12H [facility] Rx#:[id number] Oral 500 Other: Urine Appearance Clear Stool Size Moderate Stool Color Brown Yellow # Voids 3 # Bowel Movements 3 General appearance: average body habitus and no acute distress Head Head exam: Present atraumatic, normal inspection and normocephalic Respiratory Respiratory exam: Present normal respiratory exam and CTAB Cardiovascular Cardiovascular exam: Present normal rate and rhythm GI/Abdominal GI/Abdominal exam: Present soft and diminished bowel sounds Neurological Exam Neurological exam: Present CN II-XII intact and oriented X3 OBJ DATA Labs 06/16/22 05:05 06/16/22 05:06 Labs: Abnormal Lab Results 06/16/22 06/16/22 06/15/22 05:06 05:05 05:25 WBC 12.3 H RBC 3.69 L 3.61 L Hgb 12.3 L 12.2 L Hct 36.6 L 36.1 L Plt Count 482 H Immature Gran % (Auto) 0.7 H 0.8 H Neut % (Auto) 78.1 H 81.8 H Lymph % (Auto) 11.9 L 9.5 L Lymph # (Auto) 1.24 L 1.17 L [place] # (Auto) Immature Gran # 0.07 H 0.10 H Absolute Neutrophils 8.11 H 10.02 H BUN 4 L Creatinine 0.4 L Glucose 117 H Uric Acid 1.7 L Calcium 7.9 L Total Bilirubin 1.7 H Direct Bilirubin 0.7 H GGT 118 H Lactate Dehydrogenase 230 H Total Protein 5.6 L Albumin 2.6 L Albumin/Globulin Ratio 0.9 L Prealbumin 6.2 L Triglycerides 181 H 06/15/22 06/14/22 06/14/22 05:25 05:45 05:44 WBC 22.1 H RBC 3.70 L Hgb 12.5 L Hct 36.9 L Plt Count Immature Gran % (Auto) 1.5 H Neut % (Auto) 86.0 H Lymph % (Auto) 5.1 L Lymph # (Auto) 1.13 L [place] # (Auto) 1.52 H Immature Gran # 0.33 H Absolute Neutrophils 18.97 H BUN 5 L Creatinine 0.4 L 0.5 L Glucose 118 H 117 H Uric Acid 1.9 L 2.0 L Calcium 7.8 L 8.1 L Total Bilirubin 1.8 H 3.6 H Direct Bilirubin 1.0 H 2.4 H GGT Lactate Dehydrogenase Total Protein 5.2 L 5.3 L Albumin 2.4 L 2.5 L Albumin/Globulin Ratio 0.9 L 0.9 L Prealbumin Triglycerides 206 H Meds: Medications Al Hydrox/Mg Hydrox/Simethicone (Mag Hydrox/Al Hydrox/Simeth 30 Ml Oral.Susp) 30 ml PO Q3HP PRN PRN Reason: Dyspepsia Last Admin: 06/08/22 15:54 Dose: 30 ml Dextrose (Dextrose 50% 50 Ml Vial) 0 ml IV UD PRN PRN Reason: Per Sliding Scale Diagnostic Test (Pha) (Accu-Chek 1 Each Strip) 1 each FS ACHS [facility] Last Admin: 06/16/22 11:26 Dose: 1 each Fentanyl (Fentanyl 100 Mcg/2 Ml Vial) 50 mcg IV Q2HP PRN; Protocol PRN Reason: Per Pain Protocol Last Admin: 06/07/22 14:34 Dose: 50 mcg Glucose (Dextrose 31 Gm Oral.Susp) 15 gm PO PRN PRN PRN Reason: Hypoglycemia Heparin Sodium (Porcine) (Heparin Flush 10 Units/Ml 5 Ml Syringe) 2 ml IV Q12 [facility] Last Admin: 06/16/22 09:16 Dose: 2 ml Heparin Sodium (Porcine) (Heparin 5,000 Unit/Ml Vial) 5,000 unit SQ Q12 [facility] Last Admin: 06/16/22 09:16 Dose: 5,000 unit Hydralazine HCl (Hydralazine 20 Mg/Ml Vial) 10 mg IV Q4-6HP PRN PRN Reason: Hypertension Hydromorphone HCl (Hydromorphone 0.5 Mg/0.5 Ml Syringe) 0.5 - 1 mg IV Q1HP PRN; Protocol PRN Reason: Per Pain Protocol Last Admin: 06/13/22 11:22 Dose: 0.5 mg Meropenem 0.5 gm/ Sodium (Chloride) 50 mls @ 100 mls/hr IV Q6H [facility]; Protocol Last Infusion: 06/16/22 13:44 Dose: Infused Potassium Chloride/Dextrose/Sod Cl (Dextrose 5%-Ns W/20meq Kcl) 1,000 mls @ 125 mls/hr IV .Q8H [facility] Last Admin: 06/16/22 14:46 Dose: 125 mls/hr Fluconazole (Diflucan) 200 mg in 100 mls @ 100 mls/hr IV Q24H [facility] Last Infusion: 06/16/22 12:08 Dose: Infused Acetaminophen (Ofirmev) 650 mg in 65 mls @ 130 mls/hr IV Q6HP [facility]; Protocol PRN Reason: PAIN/FEVER > 101 Last Infusion: 06/16/22 15:39 Dose: Infused Vancomycin HCl 2,000 mg/ (Sodium Chloride) 500 mls @ 250 mls/hr IV Q12H [facility] Last Infusion: 06/16/22 13:43 Dose: Infused Fat Emulsion Intravenous (Intralipid 20%) 250 mls @ 25 mls/hr IV TuThSa@1600 [facility] Calcium Gluconate 9.3 meq/Magnesium Sulfate 32.48 meq/Potassium Chloride 80 meq/Multivitamins/Minerals 10 ml/Sodium Phosphate 40 mmol/Amino Acids 2,091.3333 mls @ 80 mls/hr IV Q24H [facility] Last Admin: 06/16/22 11:00 Dose: 80 mls/hr Insulin Human Lispro (Insulin Lispro 1 Unit/0.01 Ml Unit) 0 unit SQ Q6 [facility]; Protocol Last Admin: 06/16/22 11:26 Dose: Not Given Ondansetron HCl (Ondansetron 4 Mg/2 Ml Vial) 4 mg IV Q4HP PRN PRN Reason: Nausea And Vomiting Last Admin: 06/07/22 17:30 Dose: 4 mg Pantoprazole Sodium (Pantoprazole 40 Mg Vial) 40 mg IV QAMAC [facility] Last Admin: 06/16/22 07:20 Dose: 40 mg Sodium Chloride (0.9 % Sodium Chloride 10 Ml Syringe) 10 ml IV Q12 [facility] Last Admin: 06/16/22 09:17 Dose: 10 ml Sodium Chloride (0.9 % Sodium Chloride 10 Ml Syringe) 10 ml IV UD PRN PRN Reason: FLUSH Vancomycin HCl (Vancomycin Per Pharmacy) 1 order IV UD [facility]; Protocol A/P Assessment and plan (1) Diverticulitis of intestine with abscess: Assessment and plan: - General Surgery is primary - continue current Abx regimen (vanc/chip/fluconazole) - repeat CT tomorrow per Gen Surg Status: Acute Time Spent With Patient Time: Total time spent is greater than 50% in coordination of care (as documented) at patient's floor/unit and/or counseling patient: QUALITY VTE Deep Vein Thrombosis/Pulmonary Embolism Present on Admission: No
[2022-06-17] MEDS: MEROPENEM 0.5 GM in 0.9 % SODIUM CHLORIDE 50 ML IV SCH ×4 (00:48→17:29)
[2022-06-17] MEDS: ACETAMINOPHEN 650 MG/65 ML BAG IV PRN (01:40)
[2022-06-17] MEDS: DEXTROSE 5%-NS W/20MEQ KCL 1,000 ML IV SCH ×2 (05:37→11:25)
[2022-06-17] MEDS: INSULIN LISPRO 1 UNIT/0.01 ML UNIT SQ SCH ×3 (05:44→17:31)
[2022-06-17 07:14] LABS: Basophils # (Auto) 0.04 K/mcL (0.00-0.30); Basophils % (Auto) 0.4 % (0.0-2.0); Eosinophils # (Auto) 0.22 K/mcL (0.00-0.70); Hematocrit 34.1 % (40.1-51.0); Hemoglobin 11.3 g/dL (13.7-17.5); Lymphocytes # (Auto) 1.43 K/mcL (1.50-4.80); Lymphocytes % (Auto) 13.3 % (15.5-49.0); Mean Cell Volume 101.2 fL (80.0-100.0); Mean Corpuscular HGB Conc 33.1 g/dL (31.0-36.0); Mean Platelet Volume 9.7 fL (8.8-12.5); Monocytes # (Auto) 0.76 K/mcL (0.10-0.90); Monocytes % (Auto) 7.1 % (1.0-12.0); Neutrophils % (Auto) 76.6 % (38.0-78.0); Platelet Count 461 K/mcL (140-440); RBC 3.37 M/mcL (4.63-6.08); Red Cell Distribution Width 13.5 % (11.5-14.5); WBC 10.8 K/mcL (4.5-11.0)
[2022-06-17 07:33] LABS: Prealbumin 7.6 mg/dL (20.0-40.0)
[2022-06-17 07:34] LABS: ALT/SGPT 28 U/L (<40); AST/SGOT 36 U/L (<40); Albumin 2.5 gm/dL (3.2-5.2); Albumin/Globulin Ratio 0.9 (1.0-2.3); Alkaline Phosphatase 94 U/L (39-117); Bilirubin,Direct 0.5 mg/dL (<0.3); Blood Urea Nitrogen 5 mg/dL (8-23); Calcium 7.8 mg/dL (8.6-10.4); Carbon Dioxide 27 mmol/L (22-30); Chloride 104 mmol/L (96-108); Globulin 2.8 gm/dL (2.2-3.7); Glomerular Filtration Rate 127; Glucose 119 mg/dL (70-105); Lactate Dehydrogenase 193 U/L (135-225); Phosphorous 3.6 mg/dL (2.5-4.5); Triglycerides 140 mg/dL (<150); Uric Acid 1.4 mg/dL (2.5-8.0)
[2022-06-17] MEDS ORDERED: IOPAMIDOL 100 ML BOTTLE IV ONE (07:56)
[2022-06-17] MEDS: PANTOPRAZOLE 40 MG VIAL IV SCH (10:00)
[2022-06-17] MEDS: 0.9 % SODIUM CHLORIDE 10 ML SYRINGE IV SCH ×2 (10:00→20:59)
[2022-06-17] MEDS: HEPARIN 5,000 UNIT/ML VIAL SQ SCH ×2 (10:00→20:59)
[2022-06-17] MEDS: VANCOMYCIN 2,000 MG in 0.9 % SODIUM CHLORIDE 500 ML IV SCH ×3 (10:01→21:46)
[2022-06-17] MEDS: CALCIUM GLUCONATE IV SCH (10:02)
[2022-06-17] MEDS: MVI IV SCH (10:02)
[2022-06-17] MEDS: [UNRECOGNIZED DRUG - OTHER] IV SCH (10:02)
[2022-06-17] MEDS: POTASSIUM CHLORIDE IV SCH (10:02)
[2022-06-17] MEDS: MAGNESIUM SULFATE IV SCH (10:02)
[2022-06-17] MEDS: FLUCONAZOLE 200 MG/100 ML BAG IV SCH (11:00)
--- NOTE | 2022-06-17 11:01 | Internal Med Progress Note ---
SUBJECTIVE Subjective Patient information: Note initiated : 06/17/22 at 10:56 am Service Date, if different from initiated Date: [] Patient: Juan Jose Cm 62 y/o M admitted on 06/07/22 for Abdominal pain. Chief Complaint: [] Principal diagnosis: Perforated diverticulitis Interval history: From the prior hospitalist's summation: Patient is a 62 years old gentleman otherwise healthy presented to the ED on 06/07/22 for abdominal pain. Abdominal imaging showing sigmoid diverticulitis with 2.3 cm abscess. No sign of bowel perforations noted at that point. It was determined that the size of the abscess was too small to be drained by IR. Patient was started on bowel rest, antibiotics with meropenem, and narcotics as needed for symptoms control. Repeat CT abdomen pelvis on 06/12/22 showing severe sigmoid arthritis which has become worse since initial study. Multiloculated abscess collections throughout the abdomen and pelvis, most of them are on the right side. The majority of these cannot be safely drained percutaneously due to overlying bowel and bladder. New onset heterogeneous area in the liver parenchyma in the right lobe. It may be seen with sepsis. New onset bibasilar atelectasis and right-sided pleural effusions. To my surprise, no blood culture were collected in the ED. Patient's WBC gradually and today it is 23.7. Due to the worsening nature of his diverticulitis and increasing in size and number of the abscesses, patient was being placed in wait lists from 2 hospitals [facility] in [place] and another [facility] in [facility]. PICC line insertion and TPN. 06/14: Low-grade fever overnight Tmax 37.5. [facility] called last evening for an available bed, but patient turned it down and wanted to stay in our facility for continued conservative medical treatment for the time being. [facility] has not called us back yet. Patient is feeling great this afternoon, severity of abdominal pain very minimal. He denies any nausea or vomiting and he has multiple episode of bowel movement overnight. Continue n.p.o. status and IV fluid infusions and TPN. Pending transfer to [facility] if patient change his mind and want to be transferred. Continue broad-spectrum antibiotics/antifungals with vancomycin, meropenem, and Fluconazole. IV Tylenol and Dilaudid as needed for different levels of pain control. Rest of the surgical management as per the primary team. I have spent approximately 15 to 20 minutes to talk to the patient and his about the reason for transfer, and any potential risk and benefit of doing so. We have also touched base on prognosis. 06/15: Patient has been afebrile overnight. Cultures no growth today. WBC went down from 22.1 yesterday to 12.3 today. Patient is complaining of soreness of his abdomen but denies having any extra abdominal pain or abdominal distention's. He denies having any nausea or vomiting. Status post PICC line placement yesterday. PICC line in place, will start TPN soon. Keep the patient n.p.o. otherwise. Continue broad-spectrum antibiotics/antifungals with vancomycin, meropenem, and Fluconazole, while monitoring for blood culture result. IV Tylenol and Dilaudid as needed for different levels of pain control. Rest of the surgical management as per the primary team. Patient is currently not interested in being transferred to another hospital for surgical management; he would like to continue receiving conservative medical management at this point. Jun 16, I have assumed the consultation from the prior hospitalist. WBC now normal. Repeat CT tomorrow. Continue current Abx/antifungal regimen. Jun 17, WBC 10.8. Repeat CT A/P performed this morning with read pending. Plan per General Surgery. . Constitutional Vitals: Vital Signs Temp Pulse Resp BP Pulse Ox O2 Del Method 99.0 F 68 22 164/88 99 Room Air 06/17/22 08:00 06/17/22 08:00 06/17/22 08:00 06/17/22 08:00 06/17/22 08:00 06/17/22 08:00 Period Temp Pulse Resp BP Sys/Yeh Pulse Ox O2 Del Method O2 Flow Rate Last 24 Hr 97.9 F-99.0 F 64-77 20-26 142-164/81-92 95-99 Room Air-Room Air Intake and Output 06/16/22 06/17/22 06/17/22 19:59 03:59 11:59 Intake Total 2925.6684 1665 450 Balance 2925.6667 1665 450 Weight 98.43 kg 100.471 kg Intake & Output: Intake & Output 06/16/22 06/17/22 06/17/22 19:59 03:59 11:59 Intake Total 2921.6681 1664 450 Balance 2929.6640 1665 450 Weight 98.43 kg 100.471 kg Intake: IV 2765.6667 1665 50 Calcium Gluconate 4.65 Meq 1050.6667 Magnesium Sulfate 16.24 Meq Potassium Chloride 40 Meq Infuvite Adult 10 ml Sodium Phosphate 20 Mmol In Clinimix 5 %-20% Solution 1,000 ml @ 40 mls/hr IV Q24H [facility] Rx#: [id number] Dextrose 5%-Ns W/20Meq KCl 1, 1000 1000 000 ml @ 125 mls/hr IV .Q8H [facility] Rx#:[id number] Merrem 0.5 gm In Sodium 50 100 50 Chloride 0.9% 50 ml @ 100 mls/ hr IV Q6H [facility] Rx#:[id number] Vancomycin 2,000 mg In Sodium 500 500 Chloride 0.9% 500 ml @ 250 mls/ hr IV Q12H [facility] Rx#:[id number] Oral 400 GI Tube Flush 160 Other: Urine Appearance Clear Urine Color Bright Yellow Urine Odor Normal Stool Size Moderate Moderate Small Stool Color Brown Brown Brown Yellow Stool Consistency Liquid Soft Loose Loose # Voids 4 4 # Bowel Movements 4 3 General appearance: no acute distress Head Head exam: Present atraumatic, normal inspection and normocephalic ENT ENT exam: Present mucous membranes moist Respiratory Respiratory exam: Present normal respiratory exam and CTAB Cardiovascular Cardiovascular exam: Present normal rate and rhythm GI/Abdominal GI/Abdominal exam: Present soft and diminished bowel sounds Neurological Exam Neurological exam: Present CN II-XII intact and oriented X3 OBJ DATA Labs 06/17/22 05:00 06/17/22 05:49 Labs: Abnormal Lab Results 06/17/22 06/17/22 06/16/22 05:49 05:00 05:06 WBC RBC 3.37 L Hgb 11.3 L Hct 34.1 L MCV 101.2 H Plt Count 461 H Immature Gran % (Auto) 0.6 H Neut % (Auto) Lymph % (Auto) 13.3 L Lymph # (Auto) 1.43 L Immature Gran # 0.06 H Absolute Neutrophils 8.27 H Anion Gap 6.0 L BUN 5 L 4 L Creatinine 0.4 L 0.4 L Glucose 119 H 117 H Uric Acid 1.4 L 1.7 L Calcium 7.8 L 7.9 L Total Bilirubin 1.7 H Direct Bilirubin 0.5 H 0.7 H GGT 69 H 118 H Lactate Dehydrogenase 230 H Total Protein 5.3 L 5.6 L Albumin 2.5 L 2.6 L Albumin/Globulin Ratio 0.9 L 0.9 L Prealbumin 7.6 L 6.2 L Triglycerides 181 H 06/16/22 06/15/22 06/15/22 05:05 05:25 05:25 WBC 12.3 H RBC 3.69 L 3.61 L Hgb 12.3 L 12.2 L Hct 36.6 L 36.1 L MCV Plt Count 482 H Immature Gran % (Auto) 0.7 H 0.8 H Neut % (Auto) 78.1 H 81.8 H Lymph % (Auto) 11.9 L 9.5 L Lymph # (Auto) 1.24 L 1.17 L Immature Gran # 0.07 H 0.10 H Absolute Neutrophils 8.11 H 10.02 H Anion Gap BUN 5 L Creatinine 0.4 L Glucose 118 H Uric Acid 1.9 L Calcium 7.8 L Total Bilirubin 1.8 H Direct Bilirubin 1.0 H GGT Lactate Dehydrogenase Total Protein 5.2 L Albumin 2.4 L Albumin/Globulin Ratio 0.9 L Prealbumin Triglycerides 206 H Meds: Medications Al Hydrox/Mg Hydrox/Simethicone (Mag Hydrox/Al Hydrox/Simeth 30 Ml Oral.Susp) 30 ml PO Q3HP PRN PRN Reason: Dyspepsia Last Admin: 06/08/22 15:54 Dose: 30 ml Dextrose (Dextrose 50% 50 Ml Vial) 0 ml IV UD PRN PRN Reason: Per Sliding Scale Diagnostic Test (Pha) (Accu-Chek 1 Each Strip) 1 each FS ACHS [facility] Last Admin: 06/17/22 05:43 Dose: 1 each Fentanyl (Fentanyl 100 Mcg/2 Ml Vial) 50 mcg IV Q2HP PRN; Protocol PRN Reason: Per Pain Protocol Last Admin: 06/07/22 14:34 Dose: 50 mcg Glucose (Dextrose 31 Gm Oral.Susp) 15 gm PO PRN PRN PRN Reason: Hypoglycemia Heparin Sodium (Porcine) (Heparin Flush 10 Units/Ml 5 Ml Syringe) 2 ml IV Q12 [facility] Last Admin: 06/17/22 10:00 Dose: 2 ml Heparin Sodium (Porcine) (Heparin 5,000 Unit/Ml Vial) 5,000 unit SQ Q12 [facility] Last Admin: 06/17/22 10:00 Dose: 5,000 unit Hydralazine HCl (Hydralazine 20 Mg/Ml Vial) 10 mg IV Q4-6HP PRN PRN Reason: Hypertension Hydromorphone HCl (Hydromorphone 0.5 Mg/0.5 Ml Syringe) 0.5 - 1 mg IV Q1HP PRN; Protocol PRN Reason: Per Pain Protocol Last Admin: 06/13/22 11:22 Dose: 0.5 mg Meropenem 0.5 gm/ Sodium (Chloride) 50 mls @ 100 mls/hr IV Q6H [facility]; Protocol Last Infusion: 06/17/22 07:18 Dose: Infused Fluconazole (Diflucan) 200 mg in 100 mls @ 100 mls/hr IV Q24H [facility] Last Infusion: 06/16/22 12:08 Dose: Infused Acetaminophen (Ofirmev) 650 mg in 65 mls @ 130 mls/hr IV Q6HP PRN; Protocol PRN Reason: PAIN/FEVER > 101 Last Infusion: 06/17/22 02:10 Dose: Infused Vancomycin HCl 2,000 mg/ (Sodium Chloride) 500 mls @ 250 mls/hr IV Q12H [facility] Last Admin: 06/17/22 10:01 Dose: 250 mls/hr Fat Emulsion Intravenous (Intralipid 20%) 250 mls @ 25 mls/hr IV TuThSa@1600 [facility] Calcium Gluconate 10 meq/Magnesium Sulfate 24.36 meq/Potassium Chloride 80 meq/Multivitamins/Minerals 10 ml/Sodium Phosphate 40 mmol/Amino Acids 2,090.8386 mls @ 80 mls/hr IV Q24H [facility] Last Admin: 06/17/22 10:02 Dose: 80 mls/hr Insulin Human Lispro (Insulin Lispro 1 Unit/0.01 Ml Unit) 0 unit SQ Q6 [facility]; Protocol Last Admin: 06/17/22 05:44 Dose: Not Given Ondansetron HCl (Ondansetron 4 Mg/2 Ml Vial) 4 mg IV Q4HP PRN PRN Reason: Nausea And Vomiting Last Admin: 06/07/22 17:30 Dose: 4 mg Pantoprazole Sodium (Pantoprazole 40 Mg Vial) 40 mg IV QAMAC [facility] Last Admin: 06/17/22 10:00 Dose: 40 mg Sodium Chloride (0.9 % Sodium Chloride 10 Ml Syringe) 10 ml IV Q12 [facility] Last Admin: 06/17/22 10:00 Dose: 10 ml Sodium Chloride (0.9 % Sodium Chloride 10 Ml Syringe) 10 ml IV UD PRN PRN Reason: FLUSH Vancomycin HCl (Vancomycin Per Pharmacy) 1 order IV UD [facility]; Protocol A/P Assessment and plan (1) Diverticulitis of intestine with abscess: Assessment and plan: - patient has diverticulitis with abscess - repeat CT A/P performed this morning with read pending - continue vanc/chip/diflucan - continue TPN - plan per General Surgery - chemistry normal Status: Acute Time Spent With Patient Time: Total time spent is greater than 50% in coordination of care (as documented) at patient's floor/unit and/or counseling patient: QUALITY VTE Deep Vein Thrombosis/Pulmonary Embolism Present on Admission: No
--- NOTE | 2022-06-17 13:23 | General Surgery Progress Note ---
SUBJECTIVE Subjective Patient information: Note initiated : 06/17/22 at 1145am Service Date, if different from initiated Date: [] Patient: Juan Jose Cm 62 y/o M admitted on 06/07/22 for Abdominal pain. Chief Complaint: [] Continues to feel better this am. CT results pending. No significant temps and WBC remains normalized. Principal diagnosis: Perforated diverticulitis Constitutional Vitals: Vital Signs Temp Pulse Resp BP Pulse Ox O2 Del Method 98.5 F 71 22 159/72 98 Room Air 06/17/22 12:00 06/17/22 12:00 06/17/22 12:00 06/17/22 12:00 06/17/22 12:00 06/17/22 12:00 Period Temp Pulse Resp BP Sys/Yeh Pulse Ox O2 Del Method O2 Flow Rate Last 24 Hr 97.9 F-99.0 F 67-77 20-22 142-164/72-92 96-99 Room Air-Room Air Intake and Output 06/17/22 06/17/22 06/17/22 03:59 11:59 19:59 Intake Total 1665 1175 650 Balance 1665 1175 650 Weight 221 lb 8 oz Intake & Output: Intake & Output 06/17/22 06/17/22 06/17/22 03:59 11:59 19:59 Intake Total 1665 1175 650 Balance 1665 1175 650 Weight 221 lb 8 oz Intake: IV 1665 775 650 Dextrose 5%-Ns W/20Meq KCl 1, 1000 725 000 ml @ 125 mls/hr IV .Q8H [facility] Rx#:[id number] Merrem 0.5 gm In Sodium 100 50 50 Chloride 0.9% 50 ml @ 100 mls/ hr IV Q6H [facility] Rx#:[id number] Vancomycin 2,000 mg In Sodium 500 500 Chloride 0.9% 500 ml @ 250 mls/ hr IV Q12H [facility] Rx#:[id number] Oral 400 Other: Urine Appearance Clear Urine Color Bright Yellow Urine Odor Normal Stool Size Moderate Small Stool Color Brown Brown Stool Consistency Soft Loose # Voids 4 # Bowel Movements 3 Exam: Looks well, NAD, pleasantly conversant Respiratory Respiratory exam: Present normal respiratory exam Cardiovascular Cardiovascular exam: Present normal rate and rhythm GI/Abdominal Additional comments: belly soft and minimally to non tender A/P Assessment and plan (1) Diverticulitis of intestine with abscess: Assessment and plan: Acute Sigmoid Diverticulitis with Abscess Continues to clinically improve Start Clears and Continue TPN for now Check pending CT results Status: Acute Time Spent With Patient Time: Total time spent is greater than 50% in coordination of care (as documented) at patient's floor/unit and/or counseling patient:
--- NOTE | 2022-06-17 14:40 | Cat Scan Report ---
CLINICAL INFORMATION: Follow-up sigmoid diverticulitis COMPARISON: Abdomen and pelvic CT 06/12/2022 TECHNIQUE: Enteric contrast was utilized. 80 cc of Isovue-[id number] were injected intravenously, and 50 seconds later, 0.625 mm helical slices were obtained from the mid heart through the subtrochanteric regions of the femurs. . Following reconstruction, 2.5 mm sagittal, coronal and axial reformatted images were processed and reviewed at bone, lung and soft tissue windows. Five minutes later, 0.625 mm helical slices were obtained from the mid heart through the kidneys and viewed at soft tissue windows.The exam was performed using radiation dose optimization techniques including, but not limited to, automated exposure control, adjustment of the mA and/or kV according to patient size and use of iterative reconstruction technique. FINDINGS: The lung bases moderate right and small left pleural effusion with atelectasis in the medial posterior lateral segmentright lower lobe which has progressed from the most recent CT five days ago.lower lobes. The visualized heart is grossly normal. Small hiatal hernia noted. Abdominal images show mild fatty change within the liver. An 8 mm simple cyst in the central right hepatic lobe. No significant focal hepatic abnormality. The gallbladder and bile ducts are normal CBD is 5 mm. Both kidneys, spleen, pancreas and aorta, including aortic branches, are normal in size, configuration and attenuation without focal lesion. An 18 mm fat-containing benign adenoma seen in the right adrenal gland. The left adrenal gland is normal. There is no adenopathy. Pelvic images show mild distention of urinary bladder. Prostate seminal vesicles are normal. Diverticulitis in the mid sigmoid colon featuring eccentric wall thickening inflamed diverticuli and phlegmon in the perisigmoid fat with slight improvement. A bilobed abscess in the right lower quadrant and central pelvis shows slight decrease in size now spanning 8.8 x 5.5 cm. It contains moderate air in the nondependent region. A second bilobed abscess in the subhepatic region has decreased to 7 x 1.5 cm. There is mild thickening of the wall and plicae circulares folds in the small bowel adjacent to the inflamed sigmoid colon, as previously seen, compatible sympathetic inflammation.. The free intraperitoneal air in the perihepatic region, seen on the original CT 10 days ago, has cleared. This was likely due to microperforation. Bone windows show no osseous abnormality IMPRESSION: 1. Diverticulitis involving the mid sigmoid colon shows slight improvement when compared to the most recent comparison exam five days ago. Bilobed abscess in the central pelvis and right lower quadrant has decreased now spanning 7 x 1.5 cm. A bilobed abscess in the subhepatic region is also decreased now spanning 7 x 1.5 cm. 2. Moderate right pleural effusion with atelectasis in the medial posterior lateral basilar segments of the right lower lobe has stable. Tiny left pleural effusion noted. Interpreted and Authenticated by: Kev Cheng 06/17/22
[2022-06-17] MEDS: FAT EMULSION 20% 250 ML IV SCH (16:09)
[2022-06-17] MEDS ORDERED: INSULIN LISPRO 1 UNIT/0.01 ML UNIT SQ ONE ×2 (21:27→21:37)
[2022-06-18] MEDS: MEROPENEM 0.5 GM in 0.9 % SODIUM CHLORIDE 50 ML IV SCH ×5 (01:10→23:15)
[2022-06-18] MEDS: INSULIN LISPRO 1 UNIT/0.01 ML UNIT SQ SCH ×5 (01:17→23:22)
[2022-06-18] MEDS: PANTOPRAZOLE 40 MG VIAL IV SCH (07:32)
[2022-06-18 07:52] LABS: Hematocrit 35.9 % (40.1-51.0); Hemoglobin 11.8 g/dL (13.7-17.5); Mean Cell Volume 101.1 fL (80.0-100.0); Mean Corpuscular HGB Conc 32.9 g/dL (31.0-36.0); Mean Platelet Volume 9.8 fL (8.8-12.5); Platelet Count 467 K/mcL (140-440); RBC 3.55 M/mcL (4.63-6.08); Red Cell Distribution Width 13.1 % (11.5-14.5); WBC 9.5 K/mcL (4.5-11.0)
[2022-06-18] MEDS: HEPARIN 5,000 UNIT/ML VIAL SQ SCH ×2 (09:08→20:59)
[2022-06-18] MEDS: FLUCONAZOLE 200 MG/100 ML BAG IV SCH (09:09)
[2022-06-18] MEDS: VANCOMYCIN 2,000 MG in 0.9 % SODIUM CHLORIDE 500 ML IV SCH ×2 (09:09→20:42)
[2022-06-18] MEDS: 0.9 % SODIUM CHLORIDE 10 ML SYRINGE IV SCH ×2 (09:10→20:44)
--- NOTE | 2022-06-18 11:38 | Internal Med Progress Note ---
SUBJECTIVE Subjective Patient information: Note initiated : 06/18/22 at 11:35 am Service Date, if different from initiated Date: [] Patient: Juan Jose Cm 62 y/o M admitted on 06/07/22 for Abdominal pain. Chief Complaint: [] Principal diagnosis: Perforated diverticulitis Interval history: From the prior hospitalist's summation: Patient is a 62 years old gentleman otherwise healthy presented to the ED on 06/07/22 for abdominal pain. Abdominal imaging showing sigmoid diverticulitis with 2.3 cm abscess. No sign of bowel perforations noted at that point. It was determined that the size of the abscess was too small to be drained by IR. Patient was started on bowel rest, antibiotics with meropenem, and narcotics as needed for symptoms control. Repeat CT abdomen pelvis on 06/12/22 showing severe sigmoid arthritis which has become worse since initial study. Multiloculated abscess collections throughout the abdomen and pelvis, most of them are on the right side. The majority of these cannot be safely drained percutaneously due to overlying bowel and bladder. New onset heterogeneous area in the liver parenchyma in the right lobe. It may be seen with sepsis. New onset bibasilar atelectasis and right-sided pleural effusions. To my surprise, no blood culture were collected in the ED. Patient's WBC gradually and today it is 23.7. Due to the worsening nature of his diverticulitis and increasing in size and number of the abscesses, patient was being placed in wait lists from 2 hospitals [facility] in [place] and another [facility] in [facility]. PICC line insertion and TPN. 06/14: Low-grade fever overnight Tmax 37.5. [facility] called last evening for an available bed, but patient turned it down and wanted to stay in our facility for continued conservative medical treatment for the time being. [facility] has not called us back yet. Patient is feeling great this afternoon, severity of abdominal pain very minimal. He denies any nausea or vomiting and he has multiple episode of bowel movement overnight. Continue n.p.o. status and IV fluid infusions and TPN. Pending transfer to [facility] if patient change his mind and want to be transferred. Continue broad-spectrum antibiotics/antifungals with vancomycin, meropenem, and Fluconazole. IV Tylenol and Dilaudid as needed for different levels of pain control. Rest of the surgical management as per the primary team. I have spent approximately 15 to 20 minutes to talk to the patient and his about the reason for transfer, and any potential risk and benefit of doing so. We have also touched base on prognosis. 06/15: Patient has been afebrile overnight. Cultures no growth today. WBC went down from 22.1 yesterday to 12.3 today. Patient is complaining of soreness of his abdomen but denies having any extra abdominal pain or abdominal distention's. He denies having any nausea or vomiting. Status post PICC line placement yesterday. PICC line in place, will start TPN soon. Keep the patient n.p.o. otherwise. Continue broad-spectrum antibiotics/antifungals with vancomycin, meropenem, and Fluconazole, while monitoring for blood culture result. IV Tylenol and Dilaudid as needed for different levels of pain control. Rest of the surgical management as per the primary team. Patient is currently not interested in being transferred to another hospital for surgical management; he would like to continue receiving conservative medical management at this point. Jun 16, I have assumed the consultation from the prior hospitalist. WBC now normal. Repeat CT tomorrow. Continue current Abx/antifungal regimen. Jun 17, WBC 10.8. Repeat CT A/P performed this morning with read pending. Plan per General Surgery. Jun 18, repeat CT A/P yesterday notes minimally changes abscesses. Continuing Abx. Pt to discuss plan with General Surgery. . Constitutional Vitals: Vital Signs Temp Pulse Resp BP Pulse Ox O2 Del Method 99.3 F H 74 16 144/83 96 Room Air 06/18/22 08:00 06/18/22 08:00 06/18/22 08:00 06/18/22 08:00 06/18/22 08:00 06/18/22 08:00 Period Temp Pulse Resp BP Sys/Yeh Pulse Ox O2 Del Method O2 Flow Rate Last 24 Hr 98.2 F-99.3 F 71-78 16- 144-159/72-89 96-99 Room Air-Room Air Intake and Output 06/17/22 06/18/22 06/18/22 19:59 03:59 11:59 Intake Total 4271.3333 1375 150 Balance 4271.3333 1375 150 Weight 99.019 kg Intake & Output: Intake & Output 06/17/22 06/18/22 06/18/22 19:59 03:59 11:59 Intake Total 4271.3333 1375 150 Balance 4271.3333 1375 150 Weight 99.019 kg Intake: IV 3791.3333 800 150 Calcium Gluconate 9.3 Meq 2091.3333 Magnesium Sulfate 32.48 Meq Potassium Chloride 80 Meq Infuvite Adult 10 ml Sodium Phosphate 40 Mmol In Clinimix 5 %-20% Solution 2,000 ml @ 80 mls/hr IV Q24H [facility] Rx#: [id number] Dextrose 5%-Ns W/20Meq KCl 1, 1000 000 ml @ 125 mls/hr IV .Q8H [facility] Rx#:[id number] Intralipid 20% 250 ml @ 25 mls/ 250 hr IV TuThSa@1600 [facility] Rx#: [id number] Merrem 0.5 gm In Sodium 100 50 50 Chloride 0.9% 50 ml @ 100 mls/ hr IV Q6H [facility] Rx#:[id number] Vancomycin 2,000 mg In Sodium 500 500 Chloride 0.9% 500 ml @ 250 mls/ hr IV Q12H [facility] Rx#:[id number] Oral 480 575 Other: Stool Size Small Stool Color Brown Stool Consistency Loose # Voids 1 1 # Bowel Movements 1 General appearance: no acute distress ENT ENT exam: Present mucous membranes moist Respiratory Respiratory exam: Present normal respiratory exam and CTAB Cardiovascular Cardiovascular exam: Present normal rate and rhythm GI/Abdominal GI/Abdominal exam: Present tenderness Neurological Exam Neurological exam: Present CN II-XII intact and oriented X3 OBJ DATA Labs 06/18/22 06:01 06/17/22 05:49 Labs: Abnormal Lab Results 06/18/22 06/18/22 06/17/22 06:02 06:01 05:49 RBC 3.55 L Hgb 11.8 L Hct 35.9 L MCV 101.1 H Plt Count 467 H Immature Gran % (Auto) Neut % (Auto) Lymph % (Auto) Lymph # (Auto) Immature Gran # Absolute Neutrophils Anion Gap 6.0 L BUN 5 L Creatinine 0.4 L Glucose 119 H Uric Acid 1.4 L Calcium 7.8 L Total Bilirubin Direct Bilirubin 0.5 H GGT 69 H Lactate Dehydrogenase Total Protein 5.3 L Albumin 2.5 L Albumin/Globulin Ratio 0.9 L Prealbumin 10.1 L 7.6 L Triglycerides 06/17/22 06/16/22 06/16/22 05:00 05:06 05:05 RBC 3.37 L 3.69 L Hgb 11.3 L 12.3 L Hct 34.1 L 36.6 L MCV 101.2 H Plt Count 461 H 482 H Immature Gran % (Auto) 0.6 H 0.7 H Neut % (Auto) 78.1 H Lymph % (Auto) 13.3 L 11.9 L Lymph # (Auto) 1.43 L 1.24 L Immature Gran # 0.06 H 0.07 H Absolute Neutrophils 8.27 H 8.11 H Anion Gap BUN 4 L Creatinine 0.4 L Glucose 117 H Uric Acid 1.7 L Calcium 7.9 L Total Bilirubin 1.7 H Direct Bilirubin 0.7 H GGT 118 H Lactate Dehydrogenase 230 H Total Protein 5.6 L Albumin 2.6 L Albumin/Globulin Ratio 0.9 L Prealbumin 6.2 L Triglycerides 181 H Meds: Medications Al Hydrox/Mg Hydrox/Simethicone (Mag Hydrox/Al Hydrox/Simeth 30 Ml Oral.Susp) 30 ml PO Q3HP PRN PRN Reason: Dyspepsia Last Admin: 06/08/22 15:54 Dose: 30 ml Dextrose (Dextrose 50% 50 Ml Vial) 0 ml IV UD PRN PRN Reason: Per Sliding Scale Diagnostic Test (Pha) (Accu-Chek 1 Each Strip) 1 each FS Q6 [facility] Last Admin: 06/18/22 05:54 Dose: 1 each Fentanyl (Fentanyl 100 Mcg/2 Ml Vial) 50 mcg IV Q2HP PRN; Protocol PRN Reason: Per Pain Protocol Last Admin: 06/07/22 14:34 Dose: 50 mcg Glucose (Dextrose 31 Gm Oral.Susp) 15 gm PO PRN PRN PRN Reason: Hypoglycemia Heparin Sodium (Porcine) (Heparin Flush 10 Units/Ml 5 Ml Syringe) 2 ml IV Q12 [facility] Last Admin: 06/18/22 09:08 Dose: 2 ml Heparin Sodium (Porcine) (Heparin 5,000 Unit/Ml Vial) 5,000 unit SQ Q12 [facility] Last Admin: 06/18/22 09:08 Dose: 5,000 unit Hydralazine HCl (Hydralazine 20 Mg/Ml Vial) 10 mg IV Q4-6HP PRN PRN Reason: Hypertension Hydromorphone HCl (Hydromorphone 0.5 Mg/0.5 Ml Syringe) 0.5 - 1 mg IV Q1HP PRN; Protocol PRN Reason: Per Pain Protocol Last Admin: 06/13/22 11:22 Dose: 0.5 mg Meropenem 0.5 gm/ Sodium (Chloride) 50 mls @ 100 mls/hr IV Q6H [facility]; Protocol Last Infusion: 06/18/22 06:41 Dose: Infused Fluconazole (Diflucan) 200 mg in 100 mls @ 100 mls/hr IV Q24H [facility] Last Infusion: 06/18/22 10:12 Dose: Infused Acetaminophen (Ofirmev) 650 mg in 65 mls @ 130 mls/hr IV Q6HP PRN; Protocol PRN Reason: PAIN/FEVER > 101 Last Infusion: 06/17/22 02:10 Dose: Infused Vancomycin HCl 2,000 mg/ (Sodium Chloride) 500 mls @ 250 mls/hr IV Q12H [facility] Last Admin: 06/18/22 09:09 Dose: 333.3 mls/hr Fat Emulsion Intravenous (Intralipid 20%) 250 mls @ 25 mls/hr IV TuThSa@1600 [facility] Last Infusion: 06/18/22 02:15 Dose: Infused Calcium Gluconate 10 meq/Magnesium Sulfate 24.36 meq/Potassium Chloride 80 meq/Multivitamins/Minerals 10 ml/Sodium Phosphate 40 mmol/Amino Acids 2,090.8386 mls @ 80 mls/hr IV Q24H [facility] Last Admin: 06/17/22 10:02 Dose: 80 mls/hr Insulin Human Lispro (Insulin Lispro 1 Unit/0.01 Ml Unit) 0 unit SQ Q6 [facility]; Protocol Last Admin: 06/18/22 05:54 Dose: Not Given Ondansetron HCl (Ondansetron 4 Mg/2 Ml Vial) 4 mg IV Q4HP PRN PRN Reason: Nausea And Vomiting Last Admin: 06/07/22 17:30 Dose: 4 mg Pantoprazole Sodium (Pantoprazole 40 Mg Vial) 40 mg IV QAMAC [facility] Last Admin: 06/18/22 07:32 Dose: 40 mg Sodium Chloride (0.9 % Sodium Chloride 10 Ml Syringe) 10 ml IV Q12 [facility] Last Admin: 06/18/22 09:10 Dose: 10 ml Sodium Chloride (0.9 % Sodium Chloride 10 Ml Syringe) 10 ml IV UD PRN PRN Reason: FLUSH Vancomycin HCl (Vancomycin Per Pharmacy) 1 order IV UD [facility]; Protocol A/P Assessment and plan (1) Diverticulitis of intestine with abscess: Assessment and plan: - patient has diverticulitis with abscess - repeat CT A/P performed this morning with read pending - continue vanc/chip/diflucan - continue TPN - plan per General Surgery - chemistry normal Status: Acute Time Spent With Patient Time: Total time spent is greater than 50% in coordination of care (as documented) at patient's floor/unit and/or counseling patient: QUALITY VTE Deep Vein Thrombosis/Pulmonary Embolism Present on Admission: No
[2022-06-18] MEDS: CALCIUM GLUCONATE IV SCH (12:26)
[2022-06-18] MEDS: POTASSIUM CHLORIDE IV SCH (12:26)
[2022-06-18] MEDS: MVI IV SCH (12:26)
[2022-06-18] MEDS: [UNRECOGNIZED DRUG - OTHER] IV SCH (12:26)
[2022-06-18] MEDS: MAGNESIUM SULFATE IV SCH (12:26)
--- NOTE | 2022-06-18 13:02 | General Surgery Progress Note ---
SUBJECTIVE Subjective Patient information: Note initiated : 06/18/22 at 12:51 pm Service Date, if different from initiated Date: [] Patient: Juan Jose Cm 62 y/o M admitted on 06/07/22 for Abdominal pain. Chief Complaint: [] Seen today and continues to feel improved, tolerating clears well, minimal to no abdominal pain. Expresses a very high degree of frustration regarding his care and perceptions of what's gone on since admission. Principal diagnosis: Perforated diverticulitis Constitutional Vitals: Vital Signs Temp Pulse Resp BP Pulse Ox O2 Del Method 99.3 F H 74 16 144/83 96 Room Air 06/18/22 08:00 06/18/22 08:00 06/18/22 08:00 06/18/22 08:00 06/18/22 08:00 06/18/22 08:00 Period Temp Pulse Resp BP Sys/Yeh Pulse Ox O2 Del Method O2 Flow Rate Last 24 Hr 98.2 F-99.3 F 74-78 16-20 144-157/83-89 96-99 Room Air-Room Air Intake and Output 06/18/22 06/18/22 06/18/22 03:59 11:59 19:59 Intake Total 4785 545 0560.8386 Balance 3208 632 9184.8386 Intake & Output: Intake & Output 06/18/22 06/18/22 06/18/22 03:59 11:59 19:59 Intake Total 8746 109 2289.8386 Balance 4187 462 2541.8386 Intake: IV 519 116 0159.8386 Calcium Gluconate 10 Meq 2090.8386 Magnesium Sulfate 24.36 Meq Potassium Chloride 80 Meq Infuvite Adult 10 ml Sodium Phosphate 40 Mmol In Clinimix 5 %-20% Solution 2,000 ml @ 80 mls/hr IV Q24H [facility] Rx#: [id number] Intralipid 20% 250 ml @ 25 mls/ 250 hr IV TuThSa@1600 [facility] Rx#: [id number] Merrem 0.5 gm In Sodium 50 50 Chloride 0.9% 50 ml @ 100 mls/ hr IV Q6H [facility] Rx#:[id number] Vancomycin 2,000 mg In Sodium 500 500 Chloride 0.9% 500 ml @ 250 mls/ hr IV Q12H [facility] Rx#:[id number] Oral 575 Other: Stool Size Small Stool Color Brown Stool Consistency Loose # Voids 1 # Bowel Movements 1 Exam: Non toxic, expresses high degree of frustration, fully conversant Respiratory Respiratory exam: Present normal respiratory exam Cardiovascular Cardiovascular exam: Present RRR GI/Abdominal Additional comments: soft and non tender, no peritoneal findings, no obvious distension noted Extremities Exam Additional comments: chronically edematous A/P Assessment and plan (1) Diverticulitis of intestine with abscess: Assessment and plan: Sigmoid Diverticulitis with associated intra abdominal abscess Updated CT yesterday showed evidence of improvement relative to CT scan from last week but a significant abscess remains and once again recommendations for transfer to a facility where he can be evaluated by IR for percutaneous drainage is once again made despite past declining of transfer. In course of discussions, reviewed once again that recommendation for either transfer for Perc Drainage vs Surgical Drainage was made last week in context of a rising WBC and increasing temps along with a CT Scan demonstrating increasing size of prior intra abdominal abscess but this was declined on multiple occasions. Option for transfer is once again discussed and he feels that ideally he would be transferred to the care of [facility] but indicates that [facility] might be acceptable to him as well. We reviewed a printed copy of his CT Report from yesterday that suggests a pattern of improvement but continues to suggest a potentially drainable abscess and percutaneous drainage is recommended. He is clinically improved and its possible that he will resolve this without procedural management but his ultimate clinical course in that scenario would not be known for some time. In the absence of transfer and Percutaneous Drainage and given how relatively benign he otherwise looks clinically, if he opts to remain under our care, I would recommend that current mgmt continue for a period of time with slow advancement of diet and likely additional interval imaging prior to discharge to assure strong evidence that this is resolving prior to any consideration of transition to Oral Antibiotics and possible discharge. Continue current IV ABs for now along with TPN and clear liquids and will continue to advance diet in the coming days if he otherwise continues to improve Status: Acute Time Spent With Patient Time: Total time spent is greater than 50% in coordination of care (as documented) at patient's floor/unit and/or counseling patient:
--- NOTE | 2022-06-18 17:47 | Internal Med Progress Note ---
SUBJECTIVE Subjective Patient information: Note initiated : 06/18/22 at 5:43 pm Service Date, if different from initiated Date: [] Patient: Juan Jose Cm 62 y/o M admitted on 06/07/22 for Abdominal pain. Chief Complaint: [] Principal diagnosis: Perforated diverticulitis Interval history: From the prior hospitalist's summation: Patient is a 62 years old gentleman otherwise healthy presented to the ED on 06/07/22 for abdominal pain. Abdominal imaging showing sigmoid diverticulitis with 2.3 cm abscess. No sign of bowel perforations noted at that point. It was determined that the size of the abscess was too small to be drained by IR. Patient was started on bowel rest, antibiotics with meropenem, and narcotics as needed for symptoms control. Repeat CT abdomen pelvis on 06/12/22 showing severe sigmoid arthritis which has become worse since initial study. Multiloculated abscess collections throughout the abdomen and pelvis, most of them are on the right side. The majority of these cannot be safely drained percutaneously due to overlying bowel and bladder. New onset heterogeneous area in the liver parenchyma in the right lobe. It may be seen with sepsis. New onset bibasilar atelectasis and right-sided pleural effusions. To my surprise, no blood culture were collected in the ED. Patient's WBC gradually and today it is 23.7. Due to the worsening nature of his diverticulitis and increasing in size and number of the abscesses, patient was being placed in wait lists from 2 hospitals [facility] in [place] and another [facility] in [facility]. PICC line insertion and TPN. 06/14: Low-grade fever overnight Tmax 37.5. [facility] called last evening for an available bed, but patient turned it down and wanted to stay in our facility for continued conservative medical treatment for the time being. [facility] has not called us back yet. Patient is feeling great this afternoon, severity of abdominal pain very minimal. He denies any nausea or vomiting and he has multiple episode of bowel movement overnight. Continue n.p.o. status and IV fluid infusions and TPN. Pending transfer to [facility] if patient change his mind and want to be transferred. Continue broad-spectrum antibiotics/antifungals with vancomycin, meropenem, and Fluconazole. IV Tylenol and Dilaudid as needed for different levels of pain control. Rest of the surgical management as per the primary team. I have spent approximately 15 to 20 minutes to talk to the patient and his about the reason for transfer, and any potential risk and benefit of doing so. We have also touched base on prognosis. 06/15: Patient has been afebrile overnight. Cultures no growth today. WBC went down from 22.1 yesterday to 12.3 today. Patient is complaining of soreness of his abdomen but denies having any extra abdominal pain or abdominal distention's. He denies having any nausea or vomiting. Status post PICC line placement yesterday. PICC line in place, will start TPN soon. Keep the patient n.p.o. otherwise. Continue broad-spectrum antibiotics/antifungals with vancomycin, meropenem, and Fluconazole, while monitoring for blood culture result. IV Tylenol and Dilaudid as needed for different levels of pain control. Rest of the surgical management as per the primary team. Patient is currently not interested in being transferred to another hospital for surgical management; he would like to continue receiving conservative medical management at this point. Jun 16, I have assumed the consultation from the prior hospitalist. WBC now normal. Repeat CT tomorrow. Continue current Abx/antifungal regimen. Jun 17, WBC 10.8. Repeat CT A/P performed this morning with read pending. Plan per General Surgery. Jun 18, repeat CT A/P yesterday notes minimally changes abscesses. Continuing Abx. Pt to discuss plan with General Surgery. . 06/19 Review of Systems: denies headache/fever/chills/nausea/vomiting/chest or abdominal pain/cough/dyspnea/diarrhea. Otherwise see above. PHYSICAL EXAM: General: Alert, Awake, No acute Distress Eyes/N/T: EOMI, no scleral icterus, Head/Neck: neck supple, full ROM, CV: RRR, No murmurs, Pulm: Clear b/l, no wheezing/rhonchi/rales, no respiratory distress Abd: soft, tender, +BS x4 Ext: no clubbing/cyanosis/edema, nontender Neuro: Alert, no focal deficits, moves all extremities, sensations intact b/l upper/lower Psychiatric: Skin: warm/dry, normal color Constitutional Vitals: Vital Signs Temp Pulse Resp BP Pulse Ox O2 Del Method 98.6 F 95 H 16 165/97 97 Room Air 06/18/22 16:00 06/18/22 16:00 06/18/22 16:00 06/18/22 16:00 06/18/22 16:00 06/18/22 16:00 Period Temp Pulse Resp BP Sys/Yeh Pulse Ox O2 Del Method O2 Flow Rate Last 24 Hr 98.2 F-99.3 F 74-95 16-16 144-165/83-97 96-99 Room Air-Room Air Intake and Output 06/18/22 06/18/22 06/18/22 03:59 11:59 19:59 Intake Total 9691 170 1930.8386 Balance 9071 716 0903.8386 Intake & Output: Intake & Output 06/18/22 06/18/22 06/18/22 03:59 11:59 19:59 Intake Total 2419 264 5591.8386 Balance 6650 924 9482.8386 Intake: IV 262 036 8525.8386 Calcium Gluconate 10 Meq 2090.8386 Magnesium Sulfate 24.36 Meq Potassium Chloride 80 Meq Infuvite Adult 10 ml Sodium Phosphate 40 Mmol In Clinimix 5 %-20% Solution 2,000 ml @ 80 mls/hr IV Q24H [facility] Rx#: [id number] Intralipid 20% 250 ml @ 25 mls/ 250 hr IV TuThSa@1600 [facility] Rx#: [id number] Merrem 0.5 gm In Sodium 50 50 50 Chloride 0.9% 50 ml @ 100 mls/ hr IV Q6H [facility] Rx#:[id number] Vancomycin 2,000 mg In Sodium 500 500 Chloride 0.9% 500 ml @ 250 mls/ hr IV Q12H [facility] Rx#:[id number] Oral 575 240 Other: Urine Appearance Clear Urine Color Bright Yellow Urine Odor Normal Stool Size Small Small Stool Color Brown Brown Stool Consistency Loose Loose # Voids 1 1 # Bowel Movements 1 OBJ DATA Labs 06/18/22 06:01 06/17/22 05:49 Labs: Abnormal Lab Results 06/18/22 06/18/22 06/17/22 06:02 06:01 05:49 RBC 3.55 L Hgb 11.8 L Hct 35.9 L MCV 101.1 H Plt Count 467 H Immature Gran % (Auto) Neut % (Auto) Lymph % (Auto) Lymph # (Auto) Immature Gran # Absolute Neutrophils Anion Gap 6.0 L BUN 5 L Creatinine 0.4 L Glucose 119 H Uric Acid 1.4 L Calcium 7.8 L Total Bilirubin Direct Bilirubin 0.5 H GGT 69 H Lactate Dehydrogenase Total Protein 5.3 L Albumin 2.5 L Albumin/Globulin Ratio 0.9 L Prealbumin 10.1 L 7.6 L Triglycerides 06/17/22 06/16/22 06/16/22 05:00 05:06 05:05 RBC 3.37 L 3.69 L Hgb 11.3 L 12.3 L Hct 34.1 L 36.6 L MCV 101.2 H Plt Count 461 H 482 H Immature Gran % (Auto) 0.6 H 0.7 H Neut % (Auto) 78.1 H Lymph % (Auto) 13.3 L 11.9 L Lymph # (Auto) 1.43 L 1.24 L Immature Gran # 0.06 H 0.07 H Absolute Neutrophils 8.27 H 8.11 H Anion Gap BUN 4 L Creatinine 0.4 L Glucose 117 H Uric Acid 1.7 L Calcium 7.9 L Total Bilirubin 1.7 H Direct Bilirubin 0.7 H GGT 118 H Lactate Dehydrogenase 230 H Total Protein 5.6 L Albumin 2.6 L Albumin/Globulin Ratio 0.9 L Prealbumin 6.2 L Triglycerides 181 H Meds: Medications Al Hydrox/Mg Hydrox/Simethicone (Mag Hydrox/Al Hydrox/Simeth 30 Ml Oral.Susp) 30 ml PO Q3HP PRN PRN Reason: Dyspepsia Last Admin: 06/08/22 15:54 Dose: 30 ml Dextrose (Dextrose 50% 50 Ml Vial) 0 ml IV UD PRN PRN Reason: Per Sliding Scale Diagnostic Test (Pha) (Accu-Chek 1 Each Strip) 1 each FS Q6 [facility] Last Admin: 06/18/22 17:39 Dose: 1 each Fentanyl (Fentanyl 100 Mcg/2 Ml Vial) 50 mcg IV Q2HP PRN; Protocol PRN Reason: Per Pain Protocol Last Admin: 06/07/22 14:34 Dose: 50 mcg Glucose (Dextrose 31 Gm Oral.Susp) 15 gm PO PRN PRN PRN Reason: Hypoglycemia Heparin Sodium (Porcine) (Heparin Flush 10 Units/Ml 5 Ml Syringe) 2 ml IV Q12 [facility] Last Admin: 06/18/22 09:08 Dose: 2 ml Heparin Sodium (Porcine) (Heparin 5,000 Unit/Ml Vial) 5,000 unit SQ Q12 [facility] Last Admin: 06/18/22 09:08 Dose: 5,000 unit Hydralazine HCl (Hydralazine 20 Mg/Ml Vial) 10 mg IV Q4-6HP PRN PRN Reason: Hypertension Hydromorphone HCl (Hydromorphone 0.5 Mg/0.5 Ml Syringe) 0.5 - 1 mg IV Q1HP PRN; Protocol PRN Reason: Per Pain Protocol Last Admin: 06/13/22 11:22 Dose: 0.5 mg Meropenem 0.5 gm/ Sodium (Chloride) 50 mls @ 100 mls/hr IV Q6H [facility]; Protocol Last Admin: 06/18/22 17:39 Dose: 100 mls/hr Fluconazole (Diflucan) 200 mg in 100 mls @ 100 mls/hr IV Q24H [facility] Last Infusion: 06/18/22 10:12 Dose: Infused Acetaminophen (Ofirmev) 650 mg in 65 mls @ 130 mls/hr IV Q6HP PRN; Protocol PRN Reason: PAIN/FEVER > 101 Last Infusion: 06/17/22 02:10 Dose: Infused Vancomycin HCl 2,000 mg/ (Sodium Chloride) 500 mls @ 250 mls/hr IV Q12H [facility] Last Infusion: 06/18/22 12:10 Dose: Infused Fat Emulsion Intravenous (Intralipid 20%) 250 mls @ 25 mls/hr IV TuThSa@1600 [facility] Last Infusion: 06/18/22 02:15 Dose: Infused Calcium Gluconate 10 meq/Magnesium Sulfate 24.36 meq/Potassium Chloride 80 meq/Multivitamins/Minerals 10 ml/Sodium Phosphate 40 mmol/Amino Acids 2,090.8386 mls @ 80 mls/hr IV Q24H [facility] Last Admin: 06/18/22 12:26 Dose: 80 mls/hr Insulin Human Lispro (Insulin Lispro 1 Unit/0.01 Ml Unit) 0 unit SQ Q6 [facility]; Protocol Last Admin: 06/18/22 17:39 Dose: Not Given Ondansetron HCl (Ondansetron 4 Mg/2 Ml Vial) 4 mg IV Q4HP PRN PRN Reason: Nausea And Vomiting Last Admin: 06/07/22 17:30 Dose: 4 mg Pantoprazole Sodium (Pantoprazole 40 Mg Vial) 40 mg IV QAMAC [facility] Last Admin: 06/18/22 07:32 Dose: 40 mg Sodium Chloride (0.9 % Sodium Chloride 10 Ml Syringe) 10 ml IV Q12 [facility] Last Admin: 06/18/22 09:10 Dose: 10 ml Sodium Chloride (0.9 % Sodium Chloride 10 Ml Syringe) 10 ml IV UD PRN PRN Reason: FLUSH Vancomycin HCl (Vancomycin Per Pharmacy) 1 order IV UD [facility]; Protocol A/P Narrative A/P Narrative: Assessment and plan *Diverticulitis of intestine with abscess: -further imaging per surgery -abx per surgery, currently on continue vanc/chip/diflucan -continue TPN per surgery -monitor chemistry/cbc * *ppx: heparin Time Spent With Patient Time: Total time spent is greater than 50% in coordination of care (as documented) at patient's floor/unit and/or counseling patient: QUALITY VTE Deep Vein Thrombosis/Pulmonary Embolism Present on Admission: No
[2022-06-19] MEDS: MEROPENEM 0.5 GM in 0.9 % SODIUM CHLORIDE 50 ML IV SCH ×4 (05:46→23:13)
[2022-06-19] MEDS: INSULIN LISPRO 1 UNIT/0.01 ML UNIT SQ SCH ×4 (05:53→20:44)
[2022-06-19 06:51] LABS: Hematocrit 42.2 % (40.1-51.0); Hemoglobin 9.9 g/dL (13.7-17.5); Mean Cell Volume 146.5 fL (80.0-100.0); Mean Corpuscular HGB Conc 23.5 g/dL (31.0-36.0); Mean Platelet Volume 10.3 fL (8.8-12.5); Platelet Count 325 K/mcL (140-440); RBC 2.88 M/mcL (4.63-6.08); Red Cell Distribution Width 14.3 % (11.5-14.5); WBC 6.8 K/mcL (4.5-11.0)
[2022-06-19] MEDS: PANTOPRAZOLE 40 MG VIAL IV SCH (07:28)
[2022-06-19 08:44] LABS: ALT/SGPT 43 U/L (<40); AST/SGOT 38 U/L (<40); Albumin 3.1 gm/dL (3.2-5.2); Alkaline Phosphatase 100 U/L (39-117); Bilirubin,Direct 0.4 mg/dL (<0.3); Bilirubin,Total 0.7 mg/dL (0.1-1.0); Blood Urea Nitrogen 6 mg/dL (8-23); Calcium 8.6 mg/dL (8.6-10.4); Carbon Dioxide 26 mmol/L (22-30); Chloride 101 mmol/L (96-108); Globulin 3.2 gm/dL (2.2-3.7); Glomerular Filtration Rate 116; Glucose 116 mg/dL (70-105); Lactate Dehydrogenase 210 U/L (135-225); Phosphorous 3.6 mg/dL (2.5-4.5); Triglycerides 137 mg/dL (<150); Uric Acid 1.8 mg/dL (2.5-8.0)
[2022-06-19] MEDS: VANCOMYCIN 2,000 MG in 0.9 % SODIUM CHLORIDE 500 ML IV SCH ×2 (10:44→20:43)
[2022-06-19] MEDS: HEPARIN 5,000 UNIT/ML VIAL SQ SCH ×2 (10:45→20:42)
[2022-06-19] MEDS: 0.9 % SODIUM CHLORIDE 10 ML SYRINGE IV SCH ×2 (10:46→20:50)
--- NOTE | 2022-06-19 10:48 | General Surgery Progress Note ---
SUBJECTIVE Subjective Patient information: Note initiated : 06/19/22 at 10:43 am Service Date, if different from initiated Date: [] Patient: uJan Jose Cm 62 y/o M admitted on 06/07/22 for Abdominal pain. Chief Complaint: [] Doing well, feels great this am, tolerating clears, minimal to no pain Principal diagnosis: Perforated diverticulitis Constitutional Vitals: Vital Signs Temp Pulse Resp BP Pulse Ox O2 Del Method 98.8 F 73 24 H 161/87 96 Room Air 06/19/22 08:00 06/19/22 08:00 06/19/22 08:00 06/19/22 08:00 06/19/22 08:00 06/19/22 08:00 Period Temp Pulse Resp BP Sys/Yeh Pulse Ox O2 Del Method O2 Flow Rate Last 24 Hr 97.8 F-98.8 F 66-95 16-24 146-165/82-97 95-99 Room Air-Room Air Intake and Output 06/18/22 06/19/22 06/19/22 19:59 03:59 11:59 Intake Total 2930.8386 550 350 Output Total 400 Balance 2930.8386 150 350 Weight 210 lb 14.4 oz 214 lb Intake & Output: Intake & Output 06/18/22 06/19/22 06/19/22 19:59 03:59 11:59 Intake Total 2930.8386 550 350 Output Total 400 Balance 2930.8386 150 350 Weight 210 lb 14.4 oz 214 lb Intake: IV 2690.8386 550 50 Calcium Gluconate 10 Meq 2090.8386 Magnesium Sulfate 24.36 Meq Potassium Chloride 80 Meq Infuvite Adult 10 ml Sodium Phosphate 40 Mmol In Clinimix 5 %-20% Solution 2,000 ml @ 80 mls/hr IV Q24H [facility] Rx#: [id number] Merrem 0.5 gm In Sodium 100 50 50 Chloride 0.9% 50 ml @ 100 mls/ hr IV Q6H [facility] Rx#:[id number] Vancomycin 2,000 mg In Sodium 500 500 Chloride 0.9% 500 ml @ 250 mls/ hr IV Q12H [facility] Rx#:[id number] Oral 240 300 Output: Void Amount 400 Other: Urine Appearance Clear Clear Urine Color Bright Yellow Yellow Urine Odor Normal Stool Size Small Small Stool Color Brown Brown Stool Consistency Loose Loose # Voids 2 1 1 Exam: Looks well, non toxic, NAD Respiratory Additional comments: Normal effort without distress Cardiovascular Cardiovascular exam: Present RRR GI/Abdominal Additional comments: soft and non tender, non distended, unchanged Extremities Exam Additional comments: chronic LE Edema A/P Assessment and plan (1) Sigmoid diverticulitis: Assessment and plan: HD #12 Sigmoid Diverticulitis with associated abscess Continues to feel much improved Awaiting possible transfer to [facility] for IR Drain Placement - case discussed with insurance application investigator IR yesterday who felt current abscess was amenable to perc drainage Advance diet to full liquids and then as tolerated and continue IV ABs for now Status: Acute Time Spent With Patient Time: Total time spent is greater than 50% in coordination of care (as documented) at patient's floor/unit and/or counseling patient:
[2022-06-19] MEDS: MAGNESIUM SULFATE IV SCH (12:22)
[2022-06-19] MEDS: FLUCONAZOLE 200 MG/100 ML BAG IV SCH (12:22)
[2022-06-19] MEDS: CALCIUM GLUCONATE IV SCH (12:22)
[2022-06-19] MEDS: MVI IV SCH (12:22)
[2022-06-19] MEDS: POTASSIUM CHLORIDE IV SCH (12:22)
[2022-06-19] MEDS: [UNRECOGNIZED DRUG - OTHER] IV SCH (12:22)
[2022-06-19] MEDS: FAT EMULSION 20% 250 ML IV SCH (16:13)
[2022-06-20] MEDS: MEROPENEM 0.5 GM in 0.9 % SODIUM CHLORIDE 50 ML IV SCH ×4 (05:39→22:59)
[2022-06-20] MEDS: PANTOPRAZOLE 40 MG VIAL IV SCH (07:28)
[2022-06-20] MEDS: INSULIN LISPRO 1 UNIT/0.01 ML UNIT SQ SCH ×4 (07:33→21:31)
[2022-06-20 07:48] LABS: Hematocrit 40.4 % (40.1-51.0); Hemoglobin 12.8 g/dL (13.7-17.5); Mean Cell Volume 106.6 fL (80.0-100.0); Mean Corpuscular HGB Conc 31.7 g/dL (31.0-36.0); Mean Platelet Volume 9.3 fL (8.8-12.5); Platelet Count 473 K/mcL (140-440); RBC 3.79 M/mcL (4.63-6.08); Red Cell Distribution Width 13.2 % (11.5-14.5); WBC 9.3 K/mcL (4.5-11.0)
[2022-06-20] MEDS: VANCOMYCIN 2,000 MG in 0.9 % SODIUM CHLORIDE 500 ML IV SCH ×2 (08:13→20:35)
[2022-06-20] MEDS: HEPARIN 5,000 UNIT/ML VIAL SQ SCH ×2 (08:14→20:34)
[2022-06-20] MEDS: 0.9 % SODIUM CHLORIDE 10 ML SYRINGE IV SCH ×2 (08:14→20:35)
[2022-06-20 08:32] LABS: ALT/SGPT 50 U/L (<40); AST/SGOT 43 U/L (<40); Albumin 3.1 gm/dL (3.2-5.2); Albumin/Globulin Ratio 0.9 (1.0-2.3); Alkaline Phosphatase 98 U/L (39-117); Bilirubin,Direct < 0.2 mg/dL (0-0.3); Bilirubin,Total 0.6 mg/dL (0.1-1.0); Blood Urea Nitrogen 6 mg/dL (8-23); Calcium 8.8 mg/dL (8.6-10.4); Carbon Dioxide 26 mmol/L (22-30); Chloride 101 mmol/L (96-108); Globulin 3.3 gm/dL (2.2-3.7); Glomerular Filtration Rate 116; Glucose 109 mg/dL (70-105); Lactate Dehydrogenase 224 U/L (135-225); Phosphorous 3.7 mg/dL (2.5-4.5); Triglycerides 97 mg/dL (<150); Uric Acid 1.9 mg/dL (2.5-8.0)
--- NOTE | 2022-06-20 09:39 | General Surgery Progress Note ---
SUBJECTIVE Subjective Patient information: Note initiated : 06/20/22 at 9:32 am Service Date, if different from initiated Date: [] Patient: Juan Jose Cm 62 y/o M admitted on 06/07/22 for Abdominal pain. Chief Complaint: [] Continues to do feel well with current management, tolerating full liquids, minimal pain, excellent bowel function Principal diagnosis: Perforated diverticulitis Constitutional Vitals: Vital Signs Temp Pulse Resp BP Pulse Ox O2 Del Method 98.2 F 72 20 157/90 97 Room Air 06/20/22 07:11 06/20/22 03:42 06/20/22 07:11 06/20/22 07:11 06/20/22 07:11 06/20/22 07:11 Period Temp Pulse Resp BP Sys/Yeh Pulse Ox O2 Del Method O2 Flow Rate Last 24 Hr 97.9 F-99.1 F 64-81 20-24 135-159/76-95 96-98 Room Air-Room Air Intake and Output 06/19/22 06/20/22 06/20/22 19:59 03:59 11:59 Intake Total 3415 1900 50 Output Total 2250 800 Balance 3415 -350 -750 Weight 206 lb Intake & Output: Intake & Output 06/19/22 06/20/22 06/20/22 19:59 03:59 11:59 Intake Total 3415 1900 50 Output Total 2250 800 Balance 3415 -350 -750 Weight 206 lb Intake: IV 2615 800 50 Calcium Gluconate 10 Meq 1915 Magnesium Sulfate 24.36 Meq Potassium Chloride 80 Meq Infuvite Adult 10 ml Sodium Phosphate 40 Mmol In Clinimix 5 %-20% Solution 2,000 ml @ 80 mls/hr IV Q24H [facility] Rx#: [id number] Intralipid 20% 250 ml @ 25 mls/ 250 hr IV TuThSa@1600 [facility] Rx#: [id number] Merrem 0.5 gm In Sodium 100 50 50 Chloride 0.9% 50 ml @ 100 mls/ hr IV Q6H [facility] Rx#:[id number] Vancomycin 2,000 mg In Sodium 500 500 Chloride 0.9% 500 ml @ 250 mls/ hr IV Q12H [facility] Rx#:[id number] Oral 800 1100 Output: Void Amount 2250 800 Other: Urine Appearance Clear Clear Urine Color Yellow Yellow Stool Color Brown Stool Consistency Loose # Voids 4 # Bowel Movements 1 Exam: Looks well, non toxic, NAD Respiratory Respiratory exam: Present normal respiratory exam Additional comments: normal effort without distress Cardiovascular Cardiovascular exam: Present normal rate and rhythm and RRR GI/Abdominal Additional comments: soft and non tender, non distended Extremities Exam Additional comments: well perfused A/P Assessment and plan (1) Diverticulitis of intestine with abscess: Assessment and plan: HD#13 Severe Sigmoid Diverticulitis with Associated Abscess Doing Well on current IV AB regimen Waiting for transfer to [facility] for perc drain placement - 1st on list at this time Continue IV ABs for now and ADAT with continued TPN for now Issues reviewed and discussed at length and he is comfortable with our current and ongoing plan Status: Acute Time Spent With Patient Time: Total time spent is greater than 50% in coordination of care (as documented) at patient's floor/unit and/or counseling patient:
[2022-06-20] MEDS: MVI IV SCH (11:37)
[2022-06-20] MEDS: FLUCONAZOLE 200 MG/100 ML BAG IV SCH (11:37)
[2022-06-20] MEDS: POTASSIUM CHLORIDE IV SCH (11:37)
[2022-06-20] MEDS: [UNRECOGNIZED DRUG - OTHER] IV SCH (11:37)
[2022-06-20] MEDS: MAGNESIUM SULFATE IV SCH (11:37)
[2022-06-20] MEDS: CALCIUM GLUCONATE IV SCH (11:37)
[2022-06-21] MEDS: MEROPENEM 0.5 GM in 0.9 % SODIUM CHLORIDE 50 ML IV SCH ×2 (05:24→12:01)
[2022-06-21 06:33] LABS: Hematocrit 37.5 % (40.1-51.0); Hemoglobin 12.1 g/dL (13.7-17.5); Mean Cell Volume 102.2 fL (80.0-100.0); Mean Corpuscular HGB Conc 32.3 g/dL (31.0-36.0); Mean Platelet Volume 9.2 fL (8.8-12.5); Platelet Count 463 K/mcL (140-440); RBC 3.67 M/mcL (4.63-6.08); Red Cell Distribution Width 12.7 % (11.5-14.5); WBC 7.9 K/mcL (4.5-11.0)
[2022-06-21 07:06] LABS: ALT/SGPT 46 U/L (<40); AST/SGOT 35 U/L (<40); Albumin 3.3 gm/dL (3.2-5.2); Albumin/Globulin Ratio 1.2 (1.0-2.3); Alkaline Phosphatase 88 U/L (39-117); Bilirubin,Direct 0.3 mg/dL (<0.3); Bilirubin,Total 0.6 mg/dL (0.1-1.0); Blood Urea Nitrogen 7 mg/dL (8-23); Calcium 8.6 mg/dL (8.6-10.4); Carbon Dioxide 28 mmol/L (22-30); Chloride 101 mmol/L (96-108); Globulin 2.8 gm/dL (2.2-3.7); Glomerular Filtration Rate 116; Glucose 106 mg/dL (70-105); Lactate Dehydrogenase 218 U/L (135-225); Phosphorous 3.8 mg/dL (2.5-4.5); Triglycerides 99 mg/dL (<150)
[2022-06-21] MEDS: PANTOPRAZOLE 40 MG VIAL IV SCH (07:26)
[2022-06-21] MEDS: INSULIN LISPRO 1 UNIT/0.01 ML UNIT SQ SCH ×2 (07:30→11:46)
[2022-06-21] MEDS: 0.9 % SODIUM CHLORIDE 10 ML SYRINGE IV SCH (08:38)
[2022-06-21] MEDS: VANCOMYCIN 2,000 MG in 0.9 % SODIUM CHLORIDE 500 ML IV SCH (08:38)
[2022-06-21] MEDS: HEPARIN 5,000 UNIT/ML VIAL SQ SCH (08:38)
[2022-06-21] MEDS: FLUCONAZOLE 200 MG/100 ML BAG IV SCH (10:56)
--- NOTE | 2022-06-21 12:01 | General Surgery Progress Note ---
SUBJECTIVE Subjective Patient information: Note initiated : 06/21/22 at 11:59 am Service Date, if different from initiated Date: [] Patient: Juan Jose Cm 62 y/o M admitted on 06/07/22 for Abdominal pain. Chief Complaint: [] Principal diagnosis: Perforated diverticulitis Interval history: Patient states that he feels well. He denies any significant abdominal pain though he does complain of mild suprapubic soreness. He has been afebrile. White blood count 7.9, hemoglobin 12.1, hematocrit 37.5. BUN creatinine and potassium are normal Constitutional Vitals: Vital Signs Temp Pulse Resp BP Pulse Ox O2 Del Method 98.1 F 67 16 133/87 98 Room Air 06/21/22 11:45 06/21/22 11:45 06/21/22 11:45 06/21/22 11:45 06/21/22 11:45 06/21/22 11:45 Period Temp Pulse Resp BP Sys/Yeh Pulse Ox O2 Del Method O2 Flow Rate Last 24 Hr 98.1 F-99.1 F 63-73 16-20 130-143/80-92 92-98 Room Air-Room Air Intake and Output 06/20/22 06/21/22 06/21/22 19:59 03:59 11:59 Intake Total 640 850 550 Output Total 3100 400 Balance 640 -2250 150 Weight 206 lb Intake & Output: Intake & Output 06/20/22 06/21/22 06/21/22 19:59 03:59 11:59 Intake Total 640 850 550 Output Total 3100 400 Balance 640 -2250 150 Weight 206 lb Intake: IV 200 550 550 Merrem 0.5 gm In Sodium 100 50 50 Chloride 0.9% 50 ml @ 100 mls/ hr IV Q6H [facility] Rx#:[id number] Vancomycin 2,000 mg In Sodium 500 500 Chloride 0.9% 500 ml @ 250 mls/ hr IV Q12H [facility] Rx#:[id number] Oral 440 300 Output: Void Amount 3100 400 Other: Meal Dinner Percent of Meal Consumed 95% Feeding Ability Independent Urine Appearance Clear Clear Urine Color Yellow Yellow Neck Neck exam: Present full ROM and normal inspection Respiratory Respiratory exam: Present CTAB Cardiovascular Cardiovascular exam: Present normal rate and rhythm, RRR, +S1 and +S2; Absent JVD GI/Abdominal GI/Abdominal exam: Present normal bowel sounds, soft and tenderness (Mild hypogastric tenderness); Absent distended Extremities Exam Extremities exam: Present normal inspection and neurovascular intact Neurological Exam Neurological exam: Present alert, oriented X3 and reflexes normal; Absent motor sensory deficit Psychiatric Psychiatric exam: Present normal affect and normal mood A/P Assessment and plan (1) Diverticulitis of intestine with abscess: Status: Acute Plan Continue present IV therapy Discontinue TPN Saline lock IV CT of abdomen and pelvis with IV contrast in the morning Time Spent With Patient Time: Total time spent is greater than 50% in coordination of care (as documented) at patient's floor/unit and/or counseling patient:
[2022-06-21] MEDS: MVI IV SCH (12:02)
[2022-06-21] MEDS: MAGNESIUM SULFATE IV SCH (12:02)
[2022-06-21] MEDS: [UNRECOGNIZED DRUG - OTHER] IV SCH (12:02)
[2022-06-21] MEDS: CALCIUM GLUCONATE IV SCH (12:02)
[2022-06-21] MEDS: POTASSIUM CHLORIDE IV SCH (12:02)
--- NOTE | 2022-06-21 15:12 | Discharge Summary ---
Discharge Provider Provider IMPORTANT FOLLOW-UP INFORMATION FOR PCP: Patient information: Note initiated : 06/21/22 at 3:07 pm Service Date, if different from initiated Date: [] Patient: Juan Jose Cm 62 y/o M admitted on 06/07/22 for Abdominal pain. Chief Complaint: [] Date of admission: 06/07/22 16:00 Discharge date: 06/21/22 Primary care physician: PCP No Admitting clinician: Todd Garzon Attending physician on admission: Todd Garzon Consults: 06/07/22 14:42 Consult to Physician [CONS] Stat Comment: Consulting Provider: Todd Garzon Reason For Exam: Physician to Consult 06/13/22 19:11 Consult to Physician [CONS] Routine Comment: Consulting Provider: Giancarlo Clemente Reason For Exam: Physician to Consult Attending physician on discharge: Todd Garzon Discharging clinician: Linda Fisher COURSE Hospital Course Hospital course: 62-year-old male who was admitted on 10 June with evidence of acute diverticulitis with abscess. He was treated nonoperatively however his course seem to deteriorate. He had follow-up CT which showed markedly increased size of 2 pelvic abscesses. An attempt was made to try to have him treated with percutaneous drainage. It was the impression of our radiologist that they could not perform this. Dr. Garzon who is the admitting physician made an attempt to have been seen at other facilities. In the meantime he was treated with TPN with bowel rest and his antibiotic regimen was escalated. He has had mild impro vement clinically however his last abscess was 8 cm in transverse diameter. He feels better today and has been accepted for treatment at [facility]. He is transferred there in stable condition for continued care. Discharge diagnosis: Diverticulitis with abscess Reason for admission: Acute diverticulitis with abscess Procedures: None Pertinent studies/significant findings: CT of abdomen and pelvis with contrast Complications: None Time Spent with Patient Time attestation: Total time spent providing and/or coordinating discharge services: Time spent: Less than 30 minutes Physical Examination Vital Signs Vital signs: Temp Pulse Resp BP Pulse Ox O2 Del Method 98.1 F 67 16 133/87 98 Room Air 06/21/22 11:45 06/21/22 11:45 06/21/22 11:45 06/21/22 11:45 06/21/22 11:45 06/21/22 11:45 General physical appearance General physical exam: well developed, well nourished, no distress and no pain Eyes Eye exam: PERRL and normal ocular movement ENT ENT exam: no congestion Head Head exam IM: Present atraumatic, normal inspection and normocephalic Neck Neck exam: no masses, no bruits, trachea midline, no lymphadenopathy, no venous distension and other Cardiovascular Cardiovascular exam IM: Present normal rate and rhythm, JVD, +S1 and +S2; Absent gallop or RRR Respiratory Respiratory exam: normal expansion, normal respiratory effort and clear to auscultation Abdomen Abdomen: Present tender (Mild tenderness in suprapubic midline); Absent masses Integumentary Integumentary: Present no rash, no growths and no abnormal pigmentation Neurologic Neurologic: Present normal coordination and normal sensation Musculoskeletal Musculoskeletal: Present normal gait and normal posture Psychiatric Psychiatric: Present oriented to time, oriented to person, oriented to place, speech is normal and memory intact Discharge Plan Patient/Caregiver Discharge Instructions Activity: increase activity as tolerated Diet: Regular Diet Prescriptions: No Action No Known Home Meds Other Ambulatory Orders: Primary Care Provider - Referral (NOW) Timeframe: [id number] Location: None Selected Ordered By: Todd Garzon Prescription drug monitoring program results: PDMP not reviewed Follow Up Plan Follow up with: No,PCP [Primary Care Provider] - Patient Disposition: [facility] Plan of Treatment: Patient is to be transferred to [facility] for further care Prognosis: Good Rehab Potential: Good I certify that the patient requires SNF services: No Overall status at discharge: patient is not back to baseline Discharge Orders: Discharge Order (Routine); Ordered 06/21/22 Ordered By: Linda Fisher Pending Pending Pending: Resuscitation Status Resuscitate (Full Code) Diet GI Soft/Transitional Start ThuJun 20 1548 Al Hydrox/Mg Hydrox/Simethicone (Mag Hydrox/Al Hydrox/Simeth 30 Ml Oral.Susp) 30 ml PO Q3HP PRN PRN Reason: Dyspepsia Last Admin: 06/08/22 15:54 Dose: 30 ml Documented By: Admin: 06/08/22 00:08 Dose: 30 ml Documented By: Admin: 06/07/22 19:18 Dose: 30 ml Documented By: LARS Fentanyl (Fentanyl 100 Mcg/2 Ml Vial) 50 mcg IV Q2HP PRN; Protocol PRN Reason: Per Pain Protocol Last Admin: 06/07/22 14:34 Dose: 50 mcg Documented By: DEANNA Heparin Sodium (Porcine) (Heparin Flush 10 Units/Ml 5 Ml Syringe) 2 ml IV Q12 [facility] Last Admin: 06/21/22 08:38 Dose: 2 ml Documented By: Admin: 06/20/22 23:31 Dose: 2 ml Documented By: Admin: 06/20/22 08:14 Dose: 2 ml Documented By: Admin: 06/19/22 20:44 Dose: 2 ml Documented By: Admin: 06/19/22 10:45 Dose: 2 ml Documented By: Admin: 06/18/22 20:59 Dose: 2 ml Documented By: Admin: 06/18/22 09:08 Dose: 2 ml Documented By: Admin: 06/17/22 21:00 Dose: 2 ml Documented By: Admin: 06/17/22 10:00 Dose: 2 ml Documented By: Admin: 06/16/22 21:00 Dose: 2 ml Documented By: Admin: 06/16/22 09:16 Dose: 2 ml Documented By: Admin: 06/15/22 20:31 Dose: 2 ml Documented By: Admin: 06/15/22 09:09 Dose: 2 ml Documented By: Admin: 06/14/22 18:59 Dose: 2 ml Documented By: [email or web address] Admin: 06/14/22 09:18 Dose: Not Given Documented By: Admin: 06/13/22 20:57 Dose: Not Given Documented By: RENEE Heparin Sodium (Porcine) (Heparin 5,000 Unit/Ml Vial) 5,000 unit SQ Q12 [facility] Last Admin: 06/21/22 08:38 Dose: 5,000 unit Documented By: Admin: 06/20/22 20:34 Dose: 5,000 unit Documented By: Admin: 06/20/22 08:14 Dose: 5,000 unit Documented By: Admin: 06/19/22 20:42 Dose: 5,000 unit Documented By: Admin: 06/19/22 10:45 Dose: 5,000 unit Documented By: Admin: 06/18/22 20:59 Dose: 5,000 unit Documented By: Admin: 06/18/22 09:08 Dose: 5,000 unit Documented By: Admin: 06/17/22 20:59 Dose: 5,000 unit Documented By: Admin: 06/17/22 10:00 Dose: 5,000 unit Documented By: Admin: 06/16/22 21:00 Dose: 5,000 unit Documented By: Admin: 06/16/22 09:16 Dose: 5,000 unit Documented By: Admin: 06/15/22 20:30 Dose: 5,000 unit Documented By: Admin: 06/15/22 09:08 Dose: 5,000 unit Documented By: Admin: 06/14/22 20:56 Dose: 5,000 unit Documented By: Admin: 06/14/22 09:25 Dose: 5,000 unit Documented By: Admin: 06/13/22 20:58 Dose: 5,000 unit Documented By: Admin: 06/13/22 12:30 Dose: 5,000 unit Documented By: URIEL Hydromorphone HCl (Hydromorphone 0.5 Mg/0.5 Ml Syringe) 0.5 - 1 mg IV Q1HP PRN; Protocol PRN Reason: Per Pain Protocol Last Admin: 06/13/22 11:22 Dose: 0.5 mg Documented By: Admin: 06/12/22 23:38 Dose: 1 mg Documented By: Admin: 06/12/22 17:58 Dose: 1 mg Documented By: Admin: 06/12/22 15:39 Dose: 0.5 mg Documented By: Admin: 06/12/22 12:56 Dose: 1 mg Documented By: Admin: 06/12/22 10:30 Dose: 0.5 mg Documented By: Admin: 06/12/22 07:07 Dose: 0.5 mg Documented By: Admin: 06/12/22 02:57 Dose: 1 mg Documented By: Admin: 06/11/22 22:46 Dose: 1 mg Documented By: Admin: 06/11/22 18:22 Dose: 1 mg Documented By: Admin: 06/11/22 06:07 Dose: 1 mg Documented By: Admin: 06/11/22 04:13 Dose: 1 mg Documented By: Admin: 06/11/22 02:01 Dose: 1 mg Documented By: Admin: 06/11/22 00:05 Dose: 1 mg Documented By: Admin: 06/10/22 19:09 Dose: 1 mg Documented By: Admin: 06/10/22 15:41 Dose: 1 mg Documented By: Admin: 06/10/22 12:00 Dose: 1 mg Documented By: Admin: 06/10/22 09:34 Dose: 0.5 mg Documented By: Admin: 06/10/22 08:21 Dose: 0.5 mg Documented By: Admin: 06/10/22 05:59 Dose: 1 mg Documented By: Admin: 06/10/22 03:51 Dose: 1 mg Documented By: Admin: 06/09/22 23:54 Dose: 1 mg Documented By: Admin: 06/09/22 21:52 Dose: 1 mg Documented By: Admin: 06/09/22 16:33 Dose: 1 mg Documented By: Admin: 06/09/22 12:45 Dose: 1 mg Documented By: Admin: 06/09/22 08:03 Dose: 1 mg Documented By: Admin: 06/09/22 04:48 Dose: 1 mg Documented By: Admin: 06/09/22 03:33 Dose: 0.5 mg Documented By: Admin: 06/09/22 00:25 Dose: 0.5 mg Documented By: Admin: 06/08/22 22:51 Dose: 0.5 mg Documented By: Admin: 06/08/22 19:42 Dose: 0.5 mg Documented By: Admin: 06/08/22 18:01 Dose: 1 mg Documented By: Admin: 06/08/22 13:43 Dose: 1 mg Documented By: Admin: 06/08/22 03:06 Dose: 0.5 mg Documented By: Admin: 06/07/22 22:05 Dose: 0.5 mg Documented By: Admin: 06/07/22 17:26 Dose: 1 mg Documented By: IMANI Meropenem 0.5 gm/ Sodium (Chloride) 50 mls @ 100 mls/hr IV Q6H KANDY; Protocol Last Infusion: 06/21/22 12:36 Dose: 0 mls/hr Documented By: Admin: 06/21/22 12:01 Dose: 100 mls/hr Documented By: Infusion: 06/21/22 06:00 Dose: 0 mls/hr Documented By: Admin: 06/21/22 05:24 Dose: 100 mls/hr Documented By: Infusion: 06/20/22 23:38 Dose: 0 mls/hr Documented By: Admin: 06/20/22 22:59 Dose: 100 mls/hr Documented By: Infusion: 06/20/22 17:12 Dose: 0 mls/hr Documented By: Admin: 06/20/22 16:47 Dose: 100 mls/hr Documented By: Infusion: 06/20/22 13:20 Dose: 0 mls/hr Documented By: Admin: 06/20/22 12:35 Dose: 100 mls/hr Documented By: Infusion: 06/20/22 06:23 Dose: 0 mls/hr Documented By: Admin: 06/20/22 05:39 Dose: 100 mls/hr Documented By: Infusion: 06/19/22 23:58 Dose: 0 mls/hr Documented By: Admin: 06/19/22 23:13 Dose: 100 mls/hr Documented By: Infusion: 06/19/22 17:54 Dose: 0 mls/hr Documented By: Admin: 06/19/22 17:21 Dose: 100 mls/hr Documented By: Infusion: 06/19/22 14:23 Dose: 0 mls/hr Documented By: Admin: 06/19/22 13:52 Dose: 100 mls/hr Documented By: Infusion: 06/19/22 06:48 Dose: 0 mls/hr Documented By: Admin: 06/19/22 05:46 Dose: 100 mls/hr Documented By: Infusion: 06/19/22 00:00 Dose: 0 mls/hr Documented By: Admin: 06/18/22 23:15 Dose: 100 mls/hr Documented By: Infusion: 06/18/22 18:35 Dose: 100 mls/hr Documented By: Admin: 06/18/22 17:39 Dose: 100 mls/hr Documented By: Infusion: 06/18/22 12:58 Dose: 100 mls/hr Documented By: Admin: 06/18/22 12:28 Dose: 100 mls/hr Documented By: Infusion: 06/18/22 06:41 Dose: 0 mls/hr Documented By: Admin: 06/18/22 05:54 Dose: 100 mls/hr Documented By: Infusion: 06/18/22 01:55 Dose: 0 mls/hr Documented By: Admin: 06/18/22 01:10 Dose: 100 mls/hr Documented By: Infusion: 06/17/22 19:41 Dose: 0 mls/hr Documented By: Admin: 06/17/22 17:29 Dose: 200 mls/hr Documented By: Infusion: 06/17/22 13:04 Dose: 0 mls/hr Documented By: Admin: 06/17/22 12:48 Dose: 200 mls/hr Documented By: Infusion: 06/17/22 07:18 Dose: 0 mls/hr Documented By: Admin: 06/17/22 05:37 Dose: 100 mls/hr Documented By: Infusion: 06/17/22 01:25 Dose: 0 mls/hr Documented By: Admin: 06/17/22 00:48 Dose: 100 mls/hr Documented By: Infusion: 06/16/22 20:39 Dose: 100 mls/hr Documented By: Admin: 06/16/22 17:46 Dose: 100 mls/hr Documented By: Infusion: 06/16/22 13:44 Dose: 0 mls/hr Documented By: Admin: 06/16/22 12:12 Dose: 100 mls/hr Documented By: [email or web address] Infusion: 06/16/22 07:39 Dose: 0 mls/hr Documented By: Admin: 06/16/22 06:59 Dose: 100 mls/hr Documented By: Infusion: 06/16/22 00:29 Dose: 0 mls/hr Documented By: Admin: 06/15/22 23:43 Dose: 100 mls/hr Documented By: Infusion: 06/15/22 19:39 Dose: 0 mls/hr Documented By: Admin: 06/15/22 18:58 Dose: 100 mls/hr Documented By: Infusion: 06/15/22 12:42 Dose: 0 mls/hr Documented By: Admin: 06/15/22 12:04 Dose: 100 mls/hr Documented By: Infusion: 06/15/22 07:33 Dose: 0 mls/hr Documented By: Admin: 06/15/22 06:11 Dose: 100 mls/hr Documented By: Infusion: 06/15/22 00:29 Dose: 0 mls/hr Documented By: Admin: 06/14/22 23:55 Dose: 100 mls/hr Documented By: Infusion: 06/14/22 18:50 Dose: 0 mls/hr Documented By: [email or web address] Admin: 06/14/22 17:51 Dose: 100 mls/hr Documented By: Infusion: 06/14/22 14:09 Dose: 0 mls/hr Documented By: Admin: 06/14/22 12:55 Dose: 100 mls/hr Documented By: Infusion: 06/14/22 08:04 Dose: 0 mls/hr Documented By: Admin: 06/14/22 06:48 Dose: 100 mls/hr Documented By: Infusion: 06/14/22 00:08 Dose: 0 mls/hr Documented By: Admin: 06/13/22 23:35 Dose: 100 mls/hr Documented By: Infusion: 06/13/22 18:08 Dose: 0 mls/hr Documented By: Admin: 06/13/22 17:38 Dose: 100 mls/hr Documented By: Infusion: 06/13/22 13:00 Dose: 0 mls/hr Documented By: Admin: 06/13/22 12:25 Dose: 100 mls/hr Documented By: Infusion: 06/13/22 06:05 Dose: 0 mls/hr Documented By: Admin: 06/13/22 05:33 Dose: 100 mls/hr Documented By: Infusion: 06/13/22 00:15 Dose: 0 mls/hr Documented By: Admin: 06/12/22 23:37 Dose: 100 mls/hr Documented By: Infusion: 06/12/22 18:30 Dose: 0 mls/hr Documented By: Admin: 06/12/22 17:57 Dose: 100 mls/hr Documented By: Infusion: 06/12/22 12:10 Dose: 0 mls/hr Documented By: Admin: 06/12/22 11:36 Dose: 100 mls/hr Documented By: Infusion: 06/12/22 06:00 Dose: 0 mls/hr Documented By: Admin: 06/12/22 05:18 Dose: 100 mls/hr Documented By: Infusion: 06/11/22 23:50 Dose: 0 mls/hr Documented By: Admin: 06/11/22 23:19 Dose: 100 mls/hr Documented By: Infusion: 06/11/22 18:18 Dose: 0 mls/hr Documented By: Admin: 06/11/22 17:42 Dose: 100 mls/hr Documented By: Infusion: 06/11/22 12:05 Dose: 0 mls/hr Documented By: Admin: 06/11/22 11:29 Dose: 100 mls/hr Documented By: Infusion: 06/11/22 06:45 Dose: 0 mls/hr Documented By: Admin: 06/11/22 05:56 Dose: 100 mls/hr Documented By: Infusion: 06/11/22 00:54 Dose: 0 mls/hr Documented By: Admin: 06/11/22 00:05 Dose: 100 mls/hr Documented By: Infusion: 06/10/22 19:02 Dose: 0 mls/hr Documented By: Admin: 06/10/22 17:59 Dose: 100 mls/hr Documented By: Infusion: 06/10/22 12:30 Dose: 100 mls/hr Documented By: Admin: 06/10/22 12:00 Dose: 100 mls/hr Documented By: [email or web address] Infusion: 06/10/22 06:26 Dose: 0 mls/hr Documented By: Admin: 06/10/22 05:52 Dose: 100 mls/hr Documented By: Infusion: 06/10/22 00:37 Dose: 0 mls/hr Documented By: Admin: 06/09/22 23:54 Dose: 100 mls/hr Documented By: Infusion: 06/09/22 18:30 Dose: 0 mls/hr Documented By: Admin: 06/09/22 17:59 Dose: 100 mls/hr Documented By: Infusion: 06/09/22 12:46 Dose: 0 mls/hr Documented By: Admin: 06/09/22 11:41 Dose: 100 mls/hr Documented By: Infusion: 06/09/22 06:25 Dose: 0 mls/hr Documented By: Admin: 06/09/22 05:50 Dose: 100 mls/hr Documented By: Infusion: 06/09/22 00:24 Dose: 0 mls/hr Documented By: Admin: 06/08/22 23:54 Dose: 100 mls/hr Documented By: Infusion: 06/08/22 18:50 Dose: 0 mls/hr Documented By: Admin: 06/08/22 18:01 Dose: 100 mls/hr Documented By: Infusion: 06/08/22 14:54 Dose: 0 mls/hr Documented By: Admin: 06/08/22 13:43 Dose: 100 mls/hr Documented By: Infusion: 06/08/22 06:04 Dose: 0 mls/hr Documented By: Admin: 06/08/22 05:33 Dose: 100 mls/hr Documented By: Infusion: 06/08/22 01:08 Dose: 0 mls/hr Documented By: Admin: 06/08/22 00:08 Dose: 50 mls/hr Documented By: Infusion: 06/07/22 20:03 Dose: 0 mls/hr Documented By: Admin: 06/07/22 19:18 Dose: 100 mls/hr Documented By: LARS Fluconazole (Diflucan) 200 mg in 100 mls @ 100 mls/hr IV Q24H KANDY Last Infusion: 06/21/22 12:01 Dose: 0 mls/hr Documented By: Admin: 06/21/22 10:56 Dose: 200 mls/hr Documented By: Infusion: 06/20/22 12:23 Dose: 0 mls/hr Documented By: Admin: 06/20/22 11:37 Dose: 200 mls/hr Documented By: Infusion: 06/19/22 13:00 Dose: 0 mls/hr Documented By: Admin: 06/19/22 12:22 Dose: 200 mls/hr Documented By: Infusion: 06/18/22 10:12 Dose: 0 mls/hr Documented By: Admin: 06/18/22 09:09 Dose: 200 mls/hr Documented By: Infusion: 06/17/22 13:05 Dose: 0 mls/hr Documented By: Admin: 06/17/22 11:00 Dose: 100 mls/hr Documented By: Infusion: 06/16/22 12:08 Dose: 0 mls/hr Documented By: Admin: 06/16/22 11:00 Dose: 100 mls/hr Documented By: Infusion: 06/15/22 11:20 Dose: 0 mls/hr Documented By: Admin: 06/15/22 10:12 Dose: 100 mls/hr Documented By: Infusion: 06/14/22 12:26 Dose: 0 mls/hr Documented By: Admin: 06/14/22 10:13 Dose: 100 mls/hr Documented By: Infusion: 06/13/22 11:05 Dose: 0 mls/hr Documented By: Admin: 06/13/22 10:05 Dose: 100 mls/hr Documented By: Infusion: 06/12/22 15:53 Dose: 0 mls/hr Documented By: Admin: 06/12/22 14:53 Dose: 100 mls/hr Documented By: URIEL Acetaminophen (Ofirmev) 650 mg in 65 mls @ 130 mls/hr IV Q6HP PRN; Protocol PRN Reason: PAIN/FEVER > 101 Last Infusion: 06/17/22 02:10 Dose: 0 mls/hr Documented By: Admin: 06/17/22 01:40 Dose: 130 mls/hr Documented By: Infusion: 06/16/22 15:39 Dose: 0 mls/hr Documented By: Admin: 06/16/22 14:54 Dose: 130 mls/hr Documented By: Infusion: 06/16/22 06:30 Dose: 0 mls/hr Documented By: Admin: 06/16/22 04:57 Dose: 130 mls/hr Documented By: Infusion: 06/15/22 23:22 Dose: 0 mls/hr Documented By: Admin: 06/15/22 22:40 Dose: 130 mls/hr Documented By: Infusion: 06/15/22 14:37 Dose: 0 mls/hr Documented By: Admin: 06/15/22 13:46 Dose: 130 mls/hr Documented By: Infusion: 06/15/22 06:14 Dose: 0 mls/hr Documented By: Admin: 06/15/22 05:27 Dose: 130 mls/hr Documented By: Infusion: 06/14/22 21:37 Dose: 0 mls/hr Documented By: Admin: 06/14/22 20:56 Dose: 130 mls/hr Documented By: Infusion: 06/14/22 09:15 Dose: 0 mls/hr Documented By: Admin: 06/14/22 06:08 Dose: 130 mls/hr Documented By: Infusion: 06/14/22 00:45 Dose: 0 mls/hr Documented By: Admin: 06/14/22 00:13 Dose: 130 mls/hr Documented By: Infusion: 06/13/22 17:30 Dose: 0 mls/hr Documented By: Admin: 06/13/22 17:00 Dose: 130 mls/hr Documented By: ISIDORO Vancomycin HCl 2,000 mg/ (Sodium Chloride) 500 mls @ 250 mls/hr IV Q12H KANDY Last Infusion: 06/21/22 10:33 Dose: 0 mls/hr Documented By: Admin: 06/21/22 08:38 Dose: 250 mls/hr Documented By: Infusion: 06/20/22 23:00 Dose: 0 mls/hr Documented By: Admin: 06/20/22 20:35 Dose: 250 mls/hr Documented By: Infusion: 06/20/22 10:13 Dose: 0 mls/hr Documented By: Admin: 06/20/22 08:13 Dose: 250 mls/hr Documented By: Infusion: 06/19/22 23:14 Dose: 0 mls/hr Documented By: Admin: 06/19/22 20:43 Dose: 250 mls/hr Documented By: Infusion: 06/19/22 12:44 Dose: 0 mls/hr Documented By: Admin: 06/19/22 10:44 Dose: 250 mls/hr Documented By: Infusion: 06/18/22 23:15 Dose: 0 mls/hr Documented By: Admin: 06/18/22 20:42 Dose: 250 mls/hr Documented By: Infusion: 06/18/22 12:10 Dose: 0 mls/hr Documented By: Admin: 06/18/22 09:09 Dose: 333.3 mls/hr Documented By: Infusion: 06/17/22 23:48 Dose: 0 mls/hr Documented By: Admin: 06/17/22 21:46 Dose: 250 mls/hr Documented By: Infusion: 06/17/22 13:04 Dose: 0 mls/hr Documented By: Admin: 06/17/22 10:01 Dose: 250 mls/hr Documented By: Infusion: 06/17/22 02:34 Dose: 0 mls/hr Documented By: Admin: 06/16/22 21:00 Dose: 100 mls/hr Documented By: Infusion: 06/16/22 13:43 Dose: 0 mls/hr Documented By: Admin: 06/16/22 11:00 Dose: 250 mls/hr Documented By: Infusion: 06/15/22 22:34 Dose: 0 mls/hr Documented By: Admin: 06/15/22 20:30 Dose: 250 mls/hr Documented By: Infusion: 06/15/22 13:06 Dose: 0 mls/hr Documented By: Admin: 06/15/22 10:39 Dose: 250 mls/hr Documented By: Infusion: 06/14/22 23:39 Dose: 0 mls/hr Documented By: Admin: 06/14/22 21:36 Dose: 250 mls/hr Documented By: Infusion: 06/14/22 12:26 Dose: 0 mls/hr Documented By: Admin: 06/14/22 10:13 Dose: 250 mls/hr Documented By: IMANI Ondansetron HCl (Ondansetron 4 Mg/2 Ml Vial) 4 mg IV Q4HP PRN PRN Reason: Nausea And Vomiting Last Admin: 06/07/22 17:30 Dose: 4 mg Documented By: IMANI Pantoprazole Sodium (Pantoprazole 40 Mg Vial) 40 mg IV QAMAC [facility] Hakeem Admin: 06/21/22 07:26 Dose: 40 mg Documented By: Admin: 06/20/22 07:28 Dose: 40 mg Documented By: Admin: 06/19/22 07:28 Dose: 40 mg Documented By: Admin: 06/18/22 07:32 Dose: 40 mg Documented By: Admin: 06/17/22 10:00 Dose: 40 mg Documented By: Admin: 06/16/22 07:20 Dose: 40 mg Documented By: Admin: 06/15/22 07:42 Dose: 40 mg Documented By: Admin: 06/14/22 08:04 Dose: 40 mg Documented By: Admin: 06/13/22 12:25 Dose: 40 mg Documented By: URIEL Sodium Chloride (0.9 % Sodium Chloride 10 Ml Syringe) 10 ml IV Q12 [facility] Admin: 06/21/22 08:38 Dose: 10 ml Documented By: Admin: 06/20/22 20:35 Dose: 10 ml Documented By: Admin: 06/20/22 08:14 Dose: 10 ml Documented By: Admin: 06/19/22 20:50 Dose: 10 ml Documented By: Admin: 06/19/22 10:46 Dose: 10 ml Documented By: Admin: 06/18/22 20:44 Dose: 10 ml Documented By: Admin: 06/18/22 09:10 Dose: 10 ml Documented By: Admin: 06/17/22 20:59 Dose: Not Given Documented By: Admin: 06/17/22 10:00 Dose: 10 ml Documented By: Admin: 06/16/22 20:39 Dose: Not Given Documented By: Admin: 06/16/22 09:17 Dose: 10 ml Documented By: Admin: 06/15/22 20:32 Dose: 10 ml Documented By: Admin: 06/15/22 09:09 Dose: 10 ml Documented By: Admin: 06/14/22 21:35 Dose: 10 ml Documented By: Admin: 06/14/22 09:18 Dose: Not Given Documented By: Admin: 06/13/22 20:57 Dose: Not Given Documented By: RENEE Shift Summary 06/21/22 13:05 Shift Summary by Michelle Denson Primary Diagnosis: Acute Sigmoid Diverticulitis Registration Status: IP Date of Surgery (if applicable): Not at this time Pertinent Medical Dx/Issue(s): HTN, no other hx reported Med management (antibiotics, diuretics, BP): IV Meropenem, Vancomycin Skin/Wound Care: Hive-like areas to abd r/t pts essential oils that pt applies to himself; pt persistent that this is his baseline when uses the oils. Vital Signs with Trends: Hypertensive (pts baseline) all other VSS on RA Pain management (acute vs. chronic): No c/o pain this shift Lab/Rad (abnormal, trends): WBC 7.9 Neuro/Mental Status: Alert and oriented x4 Urinary Elimination Device: BR/urinal Urinary output greater than 30mL/hr? Yes Date of last BM: states he is only having small loose stool at a time Lines/Tubes: Double lumen PICC line placed 06/14/22 Activity: Up Ad rafat in room without devices Recommendations/questions for MD: Discharge Plan (needs, disposition, etc): Pt is continuing to insist using only ABO to treat his abscess at this time and is refusing surgical intervention; on the waiting list to transfer to [place] for further treatment Initialized on 06/21/22 13:05 - END OF NOTE
== END 2022-06-21 16:00 | disposition short-term general hospital (02) | DRG 391 ==
LOC: ED 12:48 → MEDSUR 16:00
PROVIDERS: ADMIT Surgery Surgical Critical Care; ATTEND Surgery Surgical Critical Care